=== PATIENT | female | born 1945 | race Caucasian/White ===

== ENCOUNTER 2018-07-31 01:10 | Outpatient (CLI) | payer OTHER, SELFPAY ==
--- NOTE | 2018-07-31 08:00 | PFT_ITS ---
DATE OF SERVICE: July 31, 2018 REQUESTING PROVIDER: Parisa Reynoso M.D. INTERPRETATION OF STUDY: Spirometry shows mild obstructive airways disease with significant bronchodilator response. LUNG VOLUMES: Show no evidence of restriction. DIFFUSION CAPACITY: Mildly reduced, even when corrected to alveolar volume. AIRWAYS RESISTANCE: Normal. IMPRESSION: Mild obstructive airways disease with significant bronchodilator response. This is associated with mild diffusion defect. Clinical correlation recommended. cc: Parisa Reynoso M.D.
[2018-07-31] MEDS: Inhaler, Assist Device 1 EACH MC (10:51)
[2018-07-31] MEDS: Albuterol HFA 18 GM 200 PUFF INH IH (10:51)
== END 2018-07-31 01:30 ==
PROVIDERS: PCP Physician Assistant Medical; Visit Provider Family Medicine
DX: J44.9 Chronic obstructive pulmonary disease, unspecified (principal)
CPT/HCPCS: 94060; 94150; 94726; 94729

== ENCOUNTER 2018-11-21 11:05 | Outpatient (CLI) | payer OTHER, SELFPAY ==
--- NOTE | 2018-11-21 11:10 | DI.RAD_ITS ---
SYMPTOM/DIAGNOSIS: HEEL PAIN, BILAT, M79.673, ? BONE SPURS LEFT HEEL; Two views. There is a small enthesophyte at the posterior calcaneus. The bone is intact. No suspicious lytic or sclerotic lesion, fracture, dislocation or periosteal reaction is seen. IMPRESSION: Negative left calcaneus. RIGHT HEEL: Two views. There is a small enthesophyte at the insertion site of the Achilles tendon. The bone is intact. No lytic or sclerotic lesion or periostitis is seen. IMPRESSION: No acute abnormality.
== END 2018-11-21 11:25 ==
PROVIDERS: PCP Physician Assistant Medical; Visit Provider Nurse Practitioner Family
DX: M79.671 Pain in right foot (principal); M79.672 Pain in left foot
CPT/HCPCS: 73650

== ENCOUNTER 2018-11-29 18:01 | Outpatient (REF) | payer OTHER, SELFPAY ==
[2018-11-29 20:48] LABS: HDL Cholesterol 63 mg/dL (40-60); LDL CHOLESTEROL 108 mg/dL (<100)
== END 2018-11-29 18:21 ==
LOC: NCHCN 18:01
PROVIDERS: PCP Physician Assistant Medical; Visit Provider Nurse Practitioner Family
DX: M79.673 Pain in unspecified foot (principal); I10 Essential (primary) hypertension; E78.5 Hyperlipidemia, unspecified
CPT/HCPCS: 83721; 83718

== ENCOUNTER 2018-12-26 10:40 | Outpatient (REF) | payer OTHER, SELFPAY ==
[2018-12-26 22:02] LABS: Abs Immature Grans 0.03 k/cumm (0.0-0.09); Absolute Basophil Count 0.13 k/cumm (0.0-0.2); Absolute Eosinophil Count 0.65 k/cumm (0.0-0.7); Absolute Lymphocyte Count 1.87 k/cumm (1.2-3.4); Absolute Neutrophil Count 5.41 k/cumm (1.2-6.7); Basophils % 1.5; Eosinophils % 7.3; HCT 42.1 % (36.0-46.0); HGB 14.8 g/dL (12.0-15.5); Immature Grans % 0.3; Mean Corp. HGB Concentration 35.2 g/dL (32.0-36.0); Mean Corpuscular Volume 93.8 fL (80-95); Mean Platelet Volume 10.7 fL (8.0-11.0); Neutrophils % 60.9; Platelet Count 279 x1000/uL (130-400); RBC 4.49 m/cumm (4.00-5.20); RBC Distribution Width 12.5 % (11.7-14.6); White Blood Cell Count 8.89 k/cumm (4.4-10.8)
[2018-12-26 22:05] LABS: Glucose 108 mg/dL (70-100)
== END 2018-12-26 11:00 ==
LOC: NCHCN 10:40
PROVIDERS: PCP Physician Assistant Medical; Visit Provider Nurse Practitioner Family
DX: D64.9 Anemia, unspecified (principal); R73.9 Hyperglycemia, unspecified
CPT/HCPCS: 82947; 85025

== ENCOUNTER 2019-01-14 18:37 | Emergency (ER) | payer OTHER, SELFPAY ==
[2019-01-14] VITALS (16 sets, daily range): BP systolic 137–186; BP diastolic 57–92; PULSE 60–71; RESP 14–31; TEMP 36.7; O2SAT 91–99
--- NOTE | 2019-01-14 18:57 | ED.GENADUL_ITS ---
Discharge Plan Disposition Patient Disposition: HOME Condition: Improving Discharge Details Chief Complaint: SOB Clinical Impression: Acute sinusitis, Acute bronchitis Primary Care Provider: Poonam Clemens ED Provider: Georgiana Guerra Home Meds and New Rx's Prescriptions: New doxycycline hyclate 100 mg tablet 100 mg PO BID 7 Days Qty: 14 RF: 0 prednisone 20 mg tablet See Rx Instructions .ROUTE .COMPLEX Qty: 12 RF: 0 Continued acetaminophen [Tylenol Extra Strength] 500 MG tablet 500 mg PO PRN PRN (Reason: Pain) RF: 0 metoprolol succinate 50 MG tablet extended release 24 hr 75 mg PO DAILY Qty: 45 RF: 0 nitroglycerin 0.4 MG tablet, sublingual 0.4 mg Sublingual Q5 MIN PRN X3 PRNQty: 10 RF: 0 aspirin [Aspir-Low] 81 MG tablet,delayed release (DR/EC) 81 mg PO DAILY RF: 0 lisinopril 10 MG tablet 10 mg PO DAILY RF: 0 albuterol sulfate 1.25 mg/3 mL Solution For Nebulization 1.25 mg INHALATION Q4H PRNRF: 0 albuterol sulfate [ProAir HFA] 90 mcg/actuation Hfa Aerosol Inhaler 2 puff INHALATION QID PRNRF: 0 Discharge Instructions Instructions: Sinusitis (ED), Acute Bronchitis (ED) Additional Instructions: Use your Flonase at home as directed. Use [id number] sinus rinse kit or saline nose spray to help with sinus congestion. Take the antibiotics and steroids until finished. Use your inhalers that you have at home as directed. Call your primary care doctor tomorrow to schedule a follow-up appointment for r eevaluation. Return immediately to the emergency department with any worsening or new concerning symptoms. Discharge Data Discharge Physician: Georgiana Guerra Medical Decision Making 73-year-old female with history of COPD, atrial fibrillation, pancreatitis who presents to the ED with complaint of postnasal drip, sinus pressure, nasal congestion, rhinorrhea and cough with white and yellow sputum for the past few days, worse today and associated with an episode of shortness of breath this afternoon. Blood pressure hypertensive, remainder vitals within normal limits. Normal respiratory rate, oxygen saturation and afebrile. Patient appears nontoxic and speaking full sentences. She has thick yellow postnasal drainage noted but no exudates, erythema, edema, peritonsillar abscess, or accessory muscle use. Scattered wheezing. No rhonchi, crackles or rales. No lower extremity edema. Due to patient's age and past medical history, a cardiac workup ordered on arrival. Upon examination, appears consistent with a sinus infection causing postnasal drip which may have led to a possible lower respiratory tract infection/bronchitis. Patient appears comfortable with good breath sounds with some minimal scattered wheezing so this does not appear consistent with a significant acute COPD exacerbation. Due to her history of this, and still with current smoking, will give an albuterol neb treatment and Solu-Medrol. EKG noted a rate of 60, sinus, no acute ST findings. 2014 -- labs and imaging reviewed and unremarkable. Normal white blood cell count. Normal electrolytes. Troponin negative. Chest x-ray negative. 2029 -- patient feels much better and is requesting to go home. Sounds improved and no wheezing noted. Oxygen saturation 96% on room air. Will treat for sinusitis/bronchitis. One docs of doxycycline ordered for now as well as 1 dose for home. She has albuterol and Spiriva inhalers at home. We will send home with a prescription for doxycycline and prednisone. She is instructed to also use sinus rinse or saline nose spray [id number] in addition to Flonase that she has at home. She is instructed to call her primary care doctor tomorrow to schedule a follow-up appointment for reevaluation and to return here if worse. Medical Records Medical records reviewed: Yes I reviewed the patient's medical records. Imaging Data Radiologic Study: Radiologist's impression: XR Chest, 2 Views EXAM DATE/TIME: 01/14/2019 7:33 PM FINDINGS: Lungs: Unremarkable. No consolidation. Pleural space: Unremarkable. No pleural effusion. No pneumothorax. Heart/Mediastinum: Unremarkable. No cardiomegaly. Vasculature: Aortic atherosclerosis. Bones/joints: Chronic osseous changes. IMPRESSION: No acute cardiopulmonary findings. Lab Data Lab results reviewed: Yes I reviewed the patient's lab results. Laboratory Tests Range/Units 01/14/19 01/14/19 19:15 19:15 WBC (4.4-10.8) k/cumm 10.63 RBC (4.00-5.20) m/cumm 4.19 Hgb (12.0-15.5) g/dL 13.7 Hct (36.0-46.0) % 39.0 MCV (80-95) fL 93.1 MCH (27.0-33.0) pg 32.7 MCHC (32.0-36.0) g/dL 35.1 RDW (11.7-14.6) % 12.4 Plt Count (130-400) x1000/uL 299 MPV (8.0-11.0) fL 9.4 Immature Gran % 0.2 Neutrophils % 55.2 Lymphocytes % 25.4 Monocytes % 10.3 Eosinophils % 7.5 Basophils % 1.4 Absolute Neutrophils (1.2-6.7) k/cumm 5.87 Absolute Lymphocytes (1.2-3.4) k/cumm 2.70 Absolute Monocytes (0.11-0.7) k/cumm 1.09 H Absolute Eosinophils (0.0-0.7) k/cumm 0.80 H Absolute Basophils (0.0-0.2) k/cumm 0.15 Sodium (136-145) mmol/L 140 Potassium (3.5-5.1) mmol/L 3.9 Chloride (98-107) mmol/L 105 Carbon Dioxide (21.0-32.0) mmol/L 24.9 Anion Gap (3-11) mmol/L 10.1 BUN (7-18) mg/dL 17 Creatinine (0.55-1.02) mg/dL 0.74 Estimated GFR/1.73 m2 (mL/min/1.73m2) >= 60.00 Glucose (70-100) mg/dL 115 H Calcium (8.5-10.1) mg/dL 8.6 Magnesium (1.8-2.4) mg/dL 2.0 Total Bilirubin (0.2-1.0) mg/dL 0.3 AST (15-37) U/L 12 L ALT (12-78) U/L 16 Alkaline Phosphatase (46-116) U/L 81 Troponin I (0.00-0.06) ng/mL < 0.02 Total Protein (6.4-8.2) g/dL 6.7 Albumin (3.4-5.0) g/dL 3.5 ECG Data Attestation: I personally reviewed and interpreted this ECG (s) as follows: Interpretation: Rate of 60, sinus, no acute ST elevation or depression. QTc 392. QRS 82. HPI General Mode of arrival: ambulatory . Date/Time Provider Initiated Documentation: 01/14/19 18:49 . Limitations to Documentation: no limitations . Information obtained by: patient . HPI Narrative: Patient is a 73-year-old female with a history of COPD, atrial fibrillation, pancreatitis who presents to the ED with complaint of postnasal drip, cough with white and yellow sputum for the past few days, worsening today and associated with some shortness of breath this afternoon. She denies any known fever, chest pain, vomiting, diarrhea. She states she has been eating and drinking normally. She denies any recent antibiotics or steroids. Related Data Home Medications Medication Instructions Recorded Confirmed acetaminophen [Tylenol Extra 500 mg PO PRN PRN 11/25/13 01/14/19 Strength] metoprolol succinate 75 mg PO DAILY #45 tabcr 07/30/17 01/14/19 nitroglycerin 0.4 mg SUBLINGUAL Q5 MIN PRN X3 07/30/17 01/14/19 PRN #10 tab.subl aspirin [Aspir-Low] 81 mg PO DAILY 01/25/18 01/14/19 lisinopril 10 mg PO DAILY 01/25/18 01/25/18 albuterol sulfate 1.25 mg INHALATION Q4H PRN 01/14/19 01/14/19 albuterol sulfate [ProAir HFA] 2 puff INHALATION QID PRN 01/14/19 01/14/19 doxycycline hyclate 100 mg PO BID 7 Days #14 tab 01/14/19 prednisone See Rx Instructions .ROUTE 01/14/19 .COMPLEX #12 tab Previous Rx's Medication Instructions Recorded metoprolol succinate 75 mg PO DAILY #45 tabcr 07/30/17 nitroglycerin 0.4 mg SUBLINGUAL Q5 MIN PRN X3 07/30/17 PRN #10 tab.subl doxycycline hyclate 100 mg PO BID 7 Days #14 tab 01/14/19 prednisone See Rx Instructions .ROUTE 01/14/19 .COMPLEX #12 tab Allergies Allergy/AdvReac Type Severity Reaction Status Date / Time morphine AdvReac Mild vomiting Verified 01/14/19 18:46 General Stated Complaint: SOB SEAMUS: 3 Review of Systems Review of Systems All systems reviewed & are unremarkable except as noted in HPI and below Constitutional Reports as per HPI, Denies chills and Denies fever(s) Eyes Denies blurry vision ENT Denies dizziness, Reports nasal congestion, Reports nasal discharge, Reports post nasal drip, Reports sinus pain, Reports sinus pressure, Denies sore throat and Denies throat swelling Cardiovascular Denies chest pain and Denies dyspnea Respiratory Denies cough and Denies dyspnea Gastrointestinal Denies abdominal pain, Denies diarrhea and Denies vomiting Genitourinary Denies hematuria and Denies dysuria Musculoskeletal Denies back pain and Denies numbness Integumentary/Breasts Denies lesions and Denies rash Neurologic Denies dizziness, Denies focal weakness and Denies numbness Allergic/Immunologic Denies throat swelling [facility] Medical History Atrial fibrillation (Chronic) COPD (chronic obstructive pulmonary disease) (Chronic) Pancreatitis (Chronic) Surgical History History of bilateral tubal ligation (Acute) H/O bladder repair surgery (Chronic) H/O section (Chronic) History of hysterectomy (Chronic) History of tonsillectomy (Chronic) Trigger Finger release (11/12/13) Social History Smoking/Tobacco Use Status: Former Tobacco Use Quit Date: 01/12/19 Alcohol Intake: never Drug use: Never Substance use type: does not use Do you feel safe at home: Yes Do you feel safe in your relationship?: Yes Exam Const General: cooperative and healthy appearing Orientation: alert and awake [facility] Head: normal to inspection Ears: hearing grossly normal bilaterally, external ears normal and TM's normal bilaterally General nose exam: external nose normal Face and sinus: normal facial exam Mouth: oral mucosae normal Teeth and gingiva: dentition normal Throat: uvula midline, no peritonsillar masses, postnasal drainage (Yellowish thick discharge left posterior pharynx) and other (No erythema, edema, exudates.) Eyes General: appearance normal, both eyes and all related structures Eyelids: eyelids normal EOM: EOM intact bilaterally Neck Neck: normal visual inspection Lymphatic: no lymphadenopathy noted Chest Chest: normal inspection of the chest Resp Effort & Inspection: normal respiratory effort and able to speak in complete sentences Auscultation: wheezes scattered wheezes (Minimal) Cardio Rate: regular rate Rhythm: regular rhythm GI Inspection: normal to inspection Palpation: soft, not firm, no guarding, no hepatosplenomegaly, no masses and nontender Auscultation: normal bowel sounds Skin General skin exam: no rashes or lesions noted Neuro General: alert and awake Cognition: normal cognition Speech: speech normal Gait: normal gait Motor: muscle tone normal throughout Sensory Exam: no sensory deficits noted Extrem General: normal to inspection, full ROM and no edema Psych Appearance: grossly normal Mental Status: mental status grossly normal Speech and Movement: speech and movement normal Affect: normal affect Thought Process: normal Course Vital Signs Temperature 98.1 F 01/14/19 18:44 Pulse 71 01/14/19 18:44 Respiratory Rate 22 01/14/19 18:44 Blood Pressure 186/82 H 01/14/19 18:44 Pulse Oximetry 97 01/14/19 18:44 Temperature 98.1 F 01/14/19 18:44 Temperature Source Skin 01/14/19 18:44 Pulse 71 01/14/19 18:44 Respiratory Rate 22 01/14/19 18:44 Respiratory Effort 01/14/19 18:49 Blood Pressure 186/82 H 01/14/19 18:44 Blood Pressure Position Sitting 01/14/19 18:44 Pulse Oximetry 97 01/14/19 18:44 Oxygen Delivery Method Room Air 01/14/19 18:44 Oxygen Flow Rate 0 01/14/19 18:44 Pain Level 0 01/14/19 18:44
[2019-01-14] MEDS: methylPREDNISolone SUCC 125 MG VIAL IVP (19:23)
[2019-01-14] MEDS: Albuterol/Ipratropium 3 ML UPD VIAL UPD (19:24)
[2019-01-14] MEDS: Normal Saline Flush 10 ML SYR IVP (19:24)
--- NOTE | 2019-01-14 19:30 | DI.RAD_ITS ---
SYMPTOM/DIAGNOSIS: COUGH,SOB PA AND LATERAL CHEST: Comparison is made with 01/24/18. Heart size and pulmonary vasculature are stable and within normal limits. The lungs show no evidence of congestive heart failure or pneumonia. No effusions or pneumothoraces are identified. Age appropriate degenerative changes are seen in the spine. There is a pectus excavatum deformity noted. IMPRESSION: No acute pulmonary process.
[2019-01-14 19:32] LABS: Abs Immature Grans 0.02 k/cumm (0.0-0.09); Absolute Basophil Count 0.15 k/cumm (0.0-0.2); Absolute Monocyte Count 1.09 k/cumm (0.11-0.7); Absolute Neutrophil Count 5.87 k/cumm (1.2-6.7); Basophils % 1.4; Eosinophils % 7.5; HGB 13.7 g/dL (12.0-15.5); Immature Grans % 0.2; Lymphocytes % 25.4; Mean Corp. HGB Concentration 35.1 g/dL (32.0-36.0); Mean Corpuscular Hemoglobin 32.7 pg (27.0-33.0); Mean Corpuscular Volume 93.1 fL (80-95); Mean Platelet Volume 9.4 fL (8.0-11.0); Monocytes % 10.3; Neutrophils % 55.2; Platelet Count 299 x1000/uL (130-400); RBC 4.19 m/cumm (4.00-5.20); RBC Distribution Width 12.4 % (11.7-14.6); White Blood Cell Count 10.63 k/cumm (4.4-10.8)
[2019-01-14 19:44] LABS: ALT 16 U/L (12-78); AST 12 U/L (15-37); Albumin 3.5 g/dL (3.4-5.0); Alkaline Phosphatase 81 U/L (46-116); Anion Gap 10.1 mmol/L (3-11); BUN 17 mg/dL (7-18); Bilirubin, Total 0.3 mg/dL (0.2-1.0); CO2 24.9 mmol/L (21.0-32.0); CREATININE 0.74 mg/dL (0.55-1.02); Calcium 8.6 mg/dL (8.5-10.1); Chloride 105 mmol/L (98-107); Glucose 115 mg/dL (70-100); Potassium 3.9 mmol/L (3.5-5.1); Sodium 140 mmol/L (136-145); Total Protein 6.7 g/dL (6.4-8.2); Troponin I < 0.02 ng/mL (0.00-0.06)
--- NOTE | 2019-01-14 20:12 | DI.VRAD_ITS ---
EXAM: XR Chest, 2 Views EXAM DATE/TIME: 01/14/2019 7:33 PM CLINICAL HISTORY: 73 years old, female; Signs and symptoms; Shortness of breath; Patient HX: SOB increasing today TECHNIQUE: Imaging protocol: XR of the chest, 2 views. COMPARISON: CR CHEST 2 VIEWS PA,LAT 01/24/2018 12:59 PM FINDINGS: Lungs: Unremarkable. No consolidation. Pleural space: Unremarkable. No pleural effusion. No pneumothorax. Heart/Mediastinum: Unremarkable. No cardiomegaly. Vasculature: Aortic atherosclerosis. Bones/joints: Chronic osseous changes. IMPRESSION: No acute cardiopulmonary findings. Dictated and Authenticated by: Eldon Ma MD. Ordering:MARKUS Stoner MD
[2019-01-14] MEDS: Doxycycline Hyclate 100 MG CAP PO ×2 (20:41)
== END 2019-01-14 20:50 | disposition home or self-care (01) ==
PROVIDERS: Emergency Provider Physician Assistant; PCP Physician Assistant Medical
DX: J01.90 Acute sinusitis, unspecified (principal); J20.9 Acute bronchitis, unspecified; I10 Essential (primary) hypertension; J44.0 Chronic obstructive pulmonary disease with (acute) lower respiratory infection
CPT/HCPCS: 36415; 80053; 93005; 94640; 96374; 99285; 71046; 83735; 84484; 85025; 93010; J2930; J7620

== ENCOUNTER 2019-01-16 13:04 | Emergency (ER) | payer OTHER, SELFPAY ==
[2019-01-16] MEDS: Normal Saline 1,000 ML 1000 ML IV (13:10)
--- NOTE | 2019-01-16 13:12 | W.ED.GENAD ---
Discharge Plan Disposition Patient Disposition: HOME Condition: Stable Discharge Details Chief Complaint: GenMedical Clinical Impression: Lightheaded Primary Care Provider: Poonam Clemens ED Provider: Josh Bernal Home Meds and New Rx's Prescriptions: No Action acetaminophen [Tylenol Extra Strength] 500 MG tablet 500 mg PO PRN PRN (Reason: Pain) RF: 0 metoprolol succinate 50 MG tablet extended release 24 hr 75 mg PO DAILY Qty: 45 RF: 0 nitroglycerin 0.4 MG tablet, sublingual 0.4 mg Sublingual Q5 MIN PRN X3 PRNQty: 10 RF: 0 aspirin [Aspir-Low] 81 MG tablet,delayed release (DR/EC) 81 mg PO DAILY RF: 0 lisinopril 10 MG tablet 10 mg PO DAILY RF: 0 albuterol sulfate 1.25 mg/3 mL Solution For Nebulization 1.25 mg INHALATION Q4H PRNRF: 0 albuterol sulfate [ProAir HFA] 90 mcg/actuation Hfa Aerosol Inhaler 2 puff INHALATION QID PRNRF: 0 doxycycline hyclate 100 mg tablet 100 mg PO BID 7 Days Qty: 14 RF: 0 prednisone 20 mg tablet See Rx Instructions .ROUTE .COMPLEX Qty: 12 RF: 0 Discharge Instructions Instructions: Lightheadedness (ED) Additional Instructions: follow up with your primary care provider within 1-2 weeks and have your blood pressure rechecked return to the emergency department for chest pain/pressure, difficulty breathing, weakness on one side of the body, fevers, or if you feel you are significantly more ill Medical Decision Making 73 yo female with hx of copd, afib, who comes in with complaints of feeling dizzy and lightheaded a few hours ago with nausea. She still has some mild feeling of lightheadedness but no other significant symptoms at this time. Denies any abdominal pain, chest pain, sob, fevers. Was seen here 3 days ago and dx'd with uri symptoms and prescribed doxycycline and prednisone and she sttes those symptoms have significantly improved and no longer has complaints of that. She has no focal neuro deficits, NIH of 0 and no complaints of unilateral weakness or speech disturbances so doubt cva/tia. No chest pain or pressure to suggest acs. No hypoxia or tachycardia and no evidence of dvt so doubt PE. Will obtain labs to eval for anemia and electrolyte abnormalities and monitor pt remains stable, no new changes, she feels better with IVF. Is ambulating unassisted without symptoms. Do not feel any furhter acute workup indicated. Will have her f/u with pcp for her bp and return precautions given Differential Diagnosis med reaction, anemia, arrythmia, electrolyte abnormality Lab Data Lab results reviewed: Yes I reviewed the patient's lab results. HPI General Mode of arrival: EMS. Date/Time Provider Initiated Documentation: 01/16/19 13:11. Limitations to Documentation: no limitations. Information obtained by: patient. History of Present Illness 73 year old F presents to the emergency department with the chief complaint of dizziness, described as moderate, Patient reports no radiation. Patient started experiencing this hour(s) (5) and it has been constant. No relieving factors improve symptom(s), No exacerbating factors reported . Patient notes other (nausea). Patient did receive the following treatments prior to arrival, none Related Data Home Medications Medication Instructions Recorded Confirmed acetaminophen [Tylenol Extra 500 mg PO PRN PRN 11/25/13 01/14/19 Strength] metoprolol succinate 75 mg PO DAILY #45 tabcr 07/30/17 01/14/19 nitroglycerin 0.4 mg SUBLINGUAL Q5 MIN PRN X3 07/30/17 01/14/19 PRN #10 tab.subl aspirin [Aspir-Low] 81 mg PO DAILY 01/25/18 01/14/19 lisinopril 10 mg PO DAILY 01/25/18 01/25/18 albuterol sulfate 1.25 mg INHALATION Q4H PRN 01/14/19 01/14/19 albuterol sulfate [ProAir HFA] 2 puff INHALATION QID PRN 01/14/19 01/14/19 doxycycline hyclate 100 mg PO BID 7 Days #14 tab 01/14/19 prednisone See Rx Instructions .ROUTE 01/14/19 .COMPLEX #12 tab Previous Rx's Medication Instructions Recorded metoprolol succinate 75 mg PO DAILY #45 tabcr 07/30/17 nitroglycerin 0.4 mg SUBLINGUAL Q5 MIN PRN X3 07/30/17 PRN #10 tab.subl doxycycline hyclate 100 mg PO BID 7 Days #14 tab 01/14/19 prednisone See Rx Instructions .ROUTE 01/14/19 .COMPLEX #12 tab Allergies Allergy/AdvReac Type Severity Reaction Status Date / Time morphine AdvReac Mild vomiting Verified 01/14/19 18:46 General SEAMUS: 3 Review of Systems Review of Systems All systems reviewed & are unremarkable except as noted in HPI and below Constitutional Denies chills and Denies fever(s) ENT Denies change in voice Cardiovascular Denies chest pain and Denies dyspnea Respiratory Denies cough and Denies dyspnea Gastrointestinal Denies abdominal pain, Denies nausea and Denies vomiting Integumentary/Breasts Denies rash Allergic/Immunologic Denies urticaria PFSH Medical History Atrial fibrillation (Chronic) COPD (chronic obstructive pulmonary disease) (Chronic) Pancreatitis (Chronic) Surgical History History of bilateral tubal ligation (Acute) H/O bladder repair surgery (Chronic) H/O section (Chronic) History of hysterectomy (Chronic) History of tonsillectomy (Chronic) Trigger Finger release (11/12/13) Social History Smoking/Tobacco Use Status: Former Tobacco Use Quit Date: 01/12/19 Alcohol Intake: never Drug use: Never Substance use type: does not use Do you feel safe at home: Yes Do you feel safe in your relationship?: Yes Exam Const General: no acute distress Orientation: alert HENMT Head: normal to inspection Ears: external ears normal General nose exam: external nose normal Mouth: moist mucous membranes Eyes General: appearance normal, both eyes and all related structures Neck Neck: normal visual inspection Resp Effort & Inspection: normal respiratory effort and able to speak in complete sentences Cardio Rate: regular rate Skin General skin exam: no rashes or lesions noted Neuro General: alert and oriented x3 Extrem General: normal to inspection Psych Mental Status: mental status grossly normal
--- NOTE | 2019-01-16 13:16 | ED.GENADUL_ITS ---
Discharge Plan Disposition Patient Disposition: HOME Condition: Stable Discharge Details Chief Complaint: GenMedical Clinical Impression: Lightheaded Primary Care Provider: Poonam Clemens ED Provider: Josh Bernal Home Meds and New Rx's Prescriptions: No Action acetaminophen [Tylenol Extra Strength] 500 MG tablet 500 mg PO PRN PRN (Reason: Pain) RF: 0 metoprolol succinate 50 MG tablet extended release 24 hr 75 mg PO DAILY Qty: 45 RF: 0 nitroglycerin 0.4 MG tablet, sublingual 0.4 mg Sublingual Q5 MIN PRN X3 PRNQty: 10 RF: 0 aspirin [Aspir-Low] 81 MG tablet,delayed release (DR/EC) 81 mg PO DAILY RF: 0 lisinopril 10 MG tablet 10 mg PO DAILY RF: 0 albuterol sulfate 1.25 mg/3 mL Solution For Nebulization 1.25 mg INHALATION Q4H PRNRF: 0 albuterol sulfate [ProAir HFA] 90 mcg/actuation Hfa Aerosol Inhaler 2 puff INHALATION QID PRNRF: 0 doxycycline hyclate 100 mg tablet 100 mg PO BID 7 Days Qty: 14 RF: 0 prednisone 20 mg tablet See Rx Instructions .ROUTE .COMPLEX Qty: 12 RF: 0 Discharge Instructions Instructions: Lightheadedness (ED) Additional Instructions: follow up with your primary care provider within 1-2 weeks and have your blood pressure rechecked return to the emergency department for chest pain/pressure, difficulty breathing, weakness on one side of the body, fevers, or if you feel you are significantly more ill Medical Decision Making 73 yo female with hx of copd, afib, who comes in with complaints of feeling dizzy and lightheaded a few hours ago with nausea. She still has some mild feeling of lightheadedness but no other significant symptoms at this time. Denie s any abdominal pain, chest pain, sob, fevers. Was seen here 3 days ago and dx'd with uri symptoms and prescribed doxycycline and prednisone and she sttes those symptoms have significantly improved and no longer has complaints of that. She has no focal neuro deficits, NIH of 0 and no complaints of unilateral weakness or speech disturbances so doubt cva/tia. No chest pain or pressure to suggest acs. No hypoxia or tachycardia and no evidence of dvt so doubt PE. Will obtain labs to eval for anemia and electrolyte abnormalities and monitor pt remains stable, no new changes, she feels better with IVF. Is ambulating unassisted without symptoms. Do not feel any furhter acute workup indicated. Will have her f/u with pcp for her bp and return precautions given Differential Diagnosis med reaction, anemia, arrythmia, electrolyte abnormality Lab Data Lab results reviewed: Yes I reviewed the patient's lab results. HPI General Mode of arrival: EMS . Date/Time Provider Initiated Documentation: 01/16/19 13:11 . Limitations to Documentation: no limitations . Information obtained by: patient . History of Present Illness 73 year old F presents to the emergency department with the chief complaint of dizziness, described as moderate, Patient reports no radiation. Patient started exp eriencing this hour(s) (5) and it has been constant. No relieving factors improve symptom(s), No exacerbating factors reported . Patient notes other (nausea). Patient did receive the following treatments prior to arrival, none Related Data Home Medications Medication Instructions Recorded Confirmed acetaminophen [Tylenol Extra 500 mg PO PRN PRN 11/25/13 01/14/19 Strength] metoprolol succinate 75 mg PO DAILY #45 tabcr 07/30/17 01/14/19 nitroglycerin 0.4 mg SUBLINGUAL Q5 MIN PRN X3 07/30/17 01/14/19 PRN #10 tab.subl aspirin [Aspir-Low] 81 mg PO DAILY 01/25/18 01/14/19 lisinopril 10 mg PO DAILY 01/25/18 01/25/18 albuterol sulfate 1.25 mg INHALATION Q4H PRN 01/14/19 01/14/19 albuterol sulfate [ProAir HFA] 2 puff INHALATION QID PRN 01/14/19 01/14/19 doxycycline hyclate 100 mg PO BID 7 Days #14 tab 01/14/19 prednisone See Rx Instructions .ROUTE 01/14/19 .COMPLEX #12 tab Previous Rx's Medication Instructions Recorded metoprolol succinate 75 mg PO DAILY #45 tabcr 07/30/17 nitroglycerin 0.4 mg SUBLINGUAL Q5 MIN PRN X3 07/30/17 PRN #10 tab.subl doxycycline hyclate 100 mg PO BID 7 Days #14 tab 01/14/19 prednisone See Rx Instructions .ROUTE 01/14/19 .COMPLEX #12 tab Allergies Allergy/AdvReac Type Severity Reaction Status Date / Time morphine AdvReac Mild vomiting Verified 01/14/19 18:46 General SEAMUS: 3 Review of Systems Review of Systems All systems reviewed & are unremarkable except as noted in HPI and below Constitutional Denies chills and Denies fever(s) ENT Denies change in voice Cardiovascular Denies chest pain and Denies dyspnea Respiratory Denies cough and Denies dyspnea Gastrointestinal Denies abdominal pain, Denies nausea and Denies vomiting Integumentary/Breasts Denies rash Allergic/Immunologic Denies urticaria [facility] Medical History Atrial fibrillation (Chronic) COPD (chronic obstructive pulmonary disease) (Chronic) Pancreatitis (Chronic) Surgical History History of bilateral tubal ligation (Acute) H/O bladder repair surgery (Chronic) H/O section (Chronic) History of hysterectomy (Chronic) History of tonsillectomy (Chronic) Trigger Finger release (11/12/13) Social History Smoking/Tobacco Use Status: Former Tobacco Use Quit Date: 01/12/19 Alcohol Intake: never Drug use: Never Substance use type: does not use Do you feel safe at home: Yes Do you feel safe in your relationship?: Yes Exam Const General: no acute distress Orientation: alert HENMT Head: normal to inspection Ears: external ears normal General nose exam: external nose normal Mouth: moist mucous membranes Eyes General: appearance normal, both eyes and all related structures Neck Neck: normal visual inspection Resp Effort & Inspection: normal respiratory effort and able to speak in complete sentences Cardio Rate: regular rate Skin General skin exam: no rashes or lesions noted Neuro General: alert and oriented x3 Extrem General: normal to inspection Psych Mental Status: mental status grossly normal
[2019-01-16 13:17] VITALS: BP 172/64; PULSE 74; RESP 16; TEMP 36.6; O2SAT 98
[2019-01-16 13:24] LABS: Abs Immature Grans 0.02 k/cumm (0.0-0.09); Absolute Basophil Count 0.09 k/cumm (0.0-0.2); Absolute Eosinophil Count 0.21 k/cumm (0.0-0.7); Absolute Lymphocyte Count 2.12 k/cumm (1.2-3.4); Absolute Monocyte Count 1.05 k/cumm (0.11-0.7); Absolute Neutrophil Count 6.48 k/cumm (1.2-6.7); Basophils % 0.9; Eosinophils % 2.1; HCT 40.1 % (36.0-46.0); Immature Grans % 0.2; Lymphocytes % 21.3; Mean Corp. HGB Concentration 34.9 g/dL (32.0-36.0); Mean Corpuscular Hemoglobin 32.7 pg (27.0-33.0); Mean Corpuscular Volume 93.7 fL (80-95); Mean Platelet Volume 9.4 fL (8.0-11.0); Monocytes % 10.5; Platelet Count 298 x1000/uL (130-400); RBC 4.28 m/cumm (4.00-5.20); RBC Distribution Width 12.4 % (11.7-14.6); White Blood Cell Count 9.97 k/cumm (4.4-10.8)
[2019-01-16 13:37] LABS: ALT 19 U/L (12-78); AST 14 U/L (15-37); Albumin 3.6 g/dL (3.4-5.0); Alkaline Phosphatase 79 U/L (46-116); Anion Gap 13.1 mmol/L (3-11); BUN 23 mg/dL (7-18); Bilirubin, Total 0.3 mg/dL (0.2-1.0); CO2 22.9 mmol/L (21.0-32.0); CREATININE 0.92 mg/dL (0.55-1.02); Calcium 8.7 mg/dL (8.5-10.1); Chloride 106 mmol/L (98-107); Glucose 101 mg/dL (70-100); Magnesium 1.8 mg/dL (1.8-2.4); Potassium 3.3 mmol/L (3.5-5.1); Sodium 142 mmol/L (136-145); Total Protein 6.8 g/dL (6.4-8.2)
[2019-01-16 13:39] LABS: Troponin I < 0.02 ng/mL (0.00-0.06)
== END 2019-01-16 19:10 | disposition home or self-care (01) ==
PROVIDERS: Emergency Provider Emergency Medicine; PCP Nurse Practitioner Family
DX: R42 Dizziness and giddiness (principal); J44.9 Chronic obstructive pulmonary disease, unspecified
CPT/HCPCS: 36415; 80053; 96360; 99283; 83735; 84484; 85025

== ENCOUNTER 2019-01-16 18:23 | Emergency (ER) | payer OTHER, SELFPAY ==
[2019-01-16 18:25] VITALS: BP 193/78; PULSE 76; RESP 16; TEMP 36.7; O2SAT 100
--- NOTE | 2019-01-16 18:37 | ED.GENADUL_ITS ---
Discharge Plan Disposition Patient Disposition: HOME Condition: Stable Discharge Details Chief Complaint: GenMedical Clinical Impression: Hypertension Primary Care Provider: Poonam Clemens ED Provider: Josh Bernal Home Meds and New Rx's Prescriptions: No Action acetaminophen [Tylenol Extra Strength] 500 MG tablet 500 mg PO PRN PRN (Reason: Pain) RF: 0 metoprolol succinate 50 MG tablet extended release 24 hr 75 mg PO DAILY Qty: 45 RF: 0 nitroglycerin 0.4 MG tablet, sublingual 0.4 mg Sublingual Q5 MIN PRN X3 PRNQty: 10 RF: 0 aspirin [Aspir-Low] 81 MG tablet,delayed release (DR/EC) 81 mg PO DAILY RF: 0 lisinopril 10 MG tablet 10 mg PO DAILY RF: 0 albuterol sulfate 1.25 mg/3 mL Solution For Nebulization 1.25 mg INHALATION Q4H PRNRF: 0 albuterol sulfate [ProAir HFA] 90 mcg/actuation Hfa Aerosol Inhaler 2 puff INHALATION QID PRNRF: 0 doxycycline hyclate 100 mg tablet 100 mg PO BID 7 Days Qty: 14 RF: 0 prednisone 20 mg tablet See Rx Instructions .ROUTE .COMPLEX Qty: 12 RF: 0 Discharge Instructions Instructions: Hypertension (ED) Medical Decision Making 73 yo female comes in with complaints of high blood pressure and feeling shaky when standing. Denies any fevers, chills, speech disturbances, or chest pain/pressure. She was seen earlier for similar complaints with unremarkable lab work and since being home has been checking her BP and it has been over 190 and so came back for an eval. She is walking with steady gait, NIH of 0, no focal neuro deficits so doubt cva. I suspect this is either orthostasis vs anxiety related to her bp. She has no findings to suggest cva/tia, and given normal tele here with symptoms doubt arrythmia. Will d/c and have her f/u with pcp for further management of her BP, I did offer to have her increase her losartan but she declined this at this time Differential Diagnosis anxiety, anemia, htn HPI General Mode of arrival: EMS . Date/Time Provider Initiated Documentation: 01/16/19 18:25 . Limitations to Documentation: no limitations . Information obtained by: patient . History of Present Illness 73 year old F presents to the emergency department with the chief complaint of shaky, described as moderate, Patient started experiencing this day(s) (1) and it has been intermittent. No relieving factors improve symptom(s), No exacerbating factors reported . Patient did receive the following treatments prior to arrival, none Related Data Home Medications Medication Instructions Recorded Confirmed acetaminophen [Tylenol Extra 500 mg PO PRN PRN 11/25/13 01/14/19 Strength] metoprolol succinate 75 mg PO DAILY #45 tabcr 07/30/17 01/14/19 nitroglycerin 0.4 mg SUBLINGUAL Q5 MIN PRN X3 07/30/17 01/14/19 PRN #10 tab.subl aspirin [Aspir-Low] 81 mg PO DAILY 01/25/18 01/14/19 lisinopril 10 mg PO DAILY 01/25/18 01/25/18 albuterol sulfate 1.25 mg INHALATION Q4H PRN 01/14/19 01/14/19 albuterol sulfate [ProAir HFA] 2 puff INHALATION QID PRN 01/14/19 01/14/19 doxycycline hyclate 100 mg PO BID 7 Days #14 tab 01/14/19 prednisone See Rx Instructions .ROUTE 01/14/19 .COMPLEX #12 tab Previous Rx's Medication Instructions Recorded metoprolol succinate 75 mg PO DAILY #45 tabcr 07/30/17 nitroglycerin 0.4 mg SUBLINGUAL Q5 MIN PRN X3 07/30/17 PRN #10 tab.subl doxycycline hyclate 100 mg PO BID 7 Days #14 tab 01/14/19 prednisone See Rx Instructions .ROUTE 01/14/19 .COMPLEX #12 tab Allergies Allergy/AdvReac Type Severity Reaction Status Date / Time morphine AdvReac Mild vomiting Verified 01/14/19 18:46 General SEAMUS: 3 Review of Systems Review of Systems All systems reviewed & are unremarkable except as noted in HPI and below Constitutional Denies chills, Denies fever(s) and Denies weakness Cardiovascular Denies chest pain and Denies dyspnea Respiratory Denies cough and Denies dyspnea Gastrointestinal Denies abdominal pain, Denies nausea and Denies vomiting Neurologic Denies weakness PFSH Social History Smoking/Tobacco Use Status: Former Tobacco Use Quit Date: 01/12/19 Alcohol Intake: never Drug use: Never Substance use type: does not use Do you feel safe at home: Yes Do you feel safe in your relationship?: Yes Exam Const General: no acute distress Orientation: alert HENMT Head: normal to inspection Ears: external ears normal General nose exam: external nose normal Mouth: moist mucous membranes Eyes General: appearance normal, both eyes and all related structures Neck Neck: normal visual inspection Resp Effort & Inspection: normal respiratory effort and able to speak in complete sentences Cardio Rate: regular rate Skin General skin exam: no rashes or lesions noted Neuro General: alert and oriented x3 Cranial Nerves: CN's II-XI intact bilaterally Cognition: normal cognition Gait: normal gait Extrem General: normal to inspection Psych Mental Status: mental status grossly normal
--- NOTE | 2019-01-16 18:42 | NUR.NOTE ---
overall patient ambulated steadily 02 sat 98 RA hr 100 Note:
== END 2019-01-16 19:10 | disposition home or self-care (01) ==
LOC: ER 19:14
PROVIDERS: Emergency Provider Emergency Medicine; PCP Physician Assistant Medical
DX: I10 Essential (primary) hypertension (principal)
CPT/HCPCS: 99283

== ENCOUNTER 2019-01-23 16:10 | Outpatient (CLI) | payer OTHER, SELFPAY ==
[2019-01-23] MEDS: Omnipaque 350 MG/ML 100 ML BTL IJ (16:43)
--- NOTE | 2019-01-23 16:59 | DI.CT_ITS ---
SYMPTOM/DIAGNOSIS: DYSPNA, R06.00, ? PE PE CHEST CT: CT angiography was performed with multi slice acquisition and multi planar and 3D reconstruction. The study was carried out according to the usual protocol with an intravenous administration of 65 cc's of Omnipaque 350. There is no evidence of pulmonary embolic disease. The heart is of normal size. There is no evidence of an aortic aneurysm or dissection. Note is made of moderate bilateral centrilobular emphysematous changes in the lungs. There is no evidence of lymphadenopathy. Note is made of a pectus excavatum. No acute bony abnormality is seen. The soft tissues are unremarkable. SUMMARY: No evidence of acute cardiopulmonary disease. There are moderate emphysematous changes in the lungs and note is made of a mild pectus excavatum deformity.
--- NOTE | 2019-01-23 17:11 | DI.VRAD_ITS ---
EXAM: CT Angiography Chest With Contrast EXAM DATE/TIME: 01/23/2019 4:22 PM CLINICAL HISTORY: 73 years old, female; Signs and symptoms; Dyspnea TECHNIQUE: Imaging protocol: Axial computed tomographic angiography images of the chest with intravenous contrast using CT angiography protocol. Coronal and sagittal reformatted images were created and reviewed. 3D renderinD reconstructed images were created and reviewed. Contrast material: omnipaque Contrast volume: 65 ml Contrast route: rt ac COMPARISON: CT CHEST ABD PELVIS WITH CONTRAST 08/10/2017 12:49 PM FINDINGS: Pulmonary arteries: Normal. No pulmonary emboli. Aorta: Normal. No aortic aneurysm. No aortic dissection. Lungs: Moderate bilateral centrilobular emphysematous changes are present. Pleural space: Normal. No pneumothorax. No pleural effusion. Heart: Normal. No cardiomegaly. No pericardial effusion. Lymph nodes: Unremarkable. No enlarged lymph nodes. Bones/joints: Mild pectus excavatum. No acute fracture. Soft tissues: Unremarkable. IMPRESSION: No acute abnormality. Moderate emphysema and mild pectus excavatum deformity of the chest wall. Dictated and Authenticated by: Seema Scruggs MD. Ordering:GABRIELA Marcelino MD
== END 2019-01-23 16:30 ==
PROVIDERS: PCP Nurse Practitioner Family; Visit Provider Nurse Practitioner Family
DX: R06.00 Dyspnea, unspecified (principal); J43.9 Emphysema, unspecified
CPT/HCPCS: 71275; J3490

== ENCOUNTER 2019-01-25 14:31 | Outpatient (REF) | payer OTHER, SELFPAY ==
[2019-01-25 21:30] LABS: Anion Gap 12.2 mmol/L (3-11); BUN 16 mg/dL (7-18); CO2 23.8 mmol/L (21.0-32.0); CREATININE 0.92 mg/dL (0.55-1.02); Chloride 104 mmol/L (98-107); Glucose 100 mg/dL (70-100); Sodium 140 mmol/L (136-145)
== END 2019-01-25 14:51 ==
LOC: NCHCN 14:31
PROVIDERS: PCP Nurse Practitioner Family; Visit Provider Nurse Practitioner Family
DX: R06.00 Dyspnea, unspecified (principal); I10 Essential (primary) hypertension
CPT/HCPCS: 80048; 84443

== ENCOUNTER 2019-01-29 11:18 | Emergency (ER) | payer OTHER, SELFPAY ==
[2019-01-29] VITALS (21 sets, daily range): BP systolic 102–207; BP diastolic 65–155; PULSE 70–108; RESP 1–29; TEMP 37.1; O2SAT 99–100
--- NOTE | 2019-01-29 11:20 | W.ED.GENAD ---
Discharge Plan Disposition Patient Disposition: HOME Condition: Improving Discharge Details Chief Complaint: RespSymp Clinical Impression: Chronic obstructive pulmonary disease with (acute) exacerbation Primary Care Provider: Chari Abdullahi ED Provider: Bubba Garibay Home Meds and New Rx's Prescriptions: Continued acetaminophen [Tylenol Extra Strength] 500 MG tablet 500 mg PO PRN PRN (Reason: Pain) RF: 0 metoprolol succinate 50 MG tablet extended release 24 hr 75 mg PO DAILY Qty: 45 RF: 0 nitroglycerin 0.4 MG tablet, sublingual 0.4 mg Sublingual Q5 MIN PRN X3 PRNQty: 10 RF: 0 aspirin [Aspir-Low] 81 MG tablet,delayed release (DR/EC) 81 mg PO DAILY RF: 0 lisinopril 10 MG tablet 10 mg PO DAILY RF: 0 albuterol sulfate 1.25 mg/3 mL Solution For Nebulization 1.25 mg INHALATION Q4H PRNRF: 0 albuterol sulfate [ProAir HFA] 90 mcg/actuation Hfa Aerosol Inhaler 2 puff INHALATION QID PRNRF: 0 prednisone 20 mg tablet See Rx Instructions .ROUTE .COMPLEX Qty: 12 RF: 0 Discharge Instructions Instructions: COPD (Chronic Obstructive Pulmonary Disease) (ED) Additional Instructions: Please followup-up with Chari Abdullahi: we will ask our care management team to arrange an appointment. Add Sybicort twice daily as instructed. Consider stopping Serevent and discuss this with Chari Abdullahi. We will ask respiratory therapy to work with you for an outpatient, ongoing plan of care for your lungs May liberalize potassium containing foods such as strawberries, bananas, tree nuts such as cashews or almonds. You would benefit from having the potassium rechecked at your follow-up in clinic Return if you develop recurrent difficulty breathing, fever, cough. Continue all recently prescribed medications. Medical Decision Making 73-year-old female with a history of COPD. [place] tightness of breath this morning administered a home inhaler. She felt improved but then recurred and she called EMS. They found her to be hyperventilatory with carpopedal spasm. She is quite anxious. She did improve with nebulizer en route as well as coaching of breathing. She is afebrile, well-appearing, normal pulse and oxygenation; she does complain recently of increased sputum. She states she recent had a chest x-ray and declines this at today's visit. IV had been placed by EMS. Patient does have a component of anxiety and given Ativan with her consent. Screening laboratories obtained patient given fluid bolus as well as seen by respiratory consultation with saline nebulizer, Atrovent, Acappella device. Would consider stopping Serevent. I do wonder if she would benefit from a selective beta agonist such a levalbuterol/Xopenex. We will ask RT to arrange an outpatient plan of care for her COPD. Blood pressure normalized to 124/70. Labs notable for slight low potassium of 3.3, supplemented in the emergency department. As she is on KAPIL inhibitor, will merit rechecking I do feel patient will benefit from long-term inhaled steroid and she is given teaching and provided a Symbicort 2 puffs twice daily. We will ask care management to arrange outpatient follow-up for her in clinic. Lab Data Lab results reviewed: Yes I reviewed the patient's lab results. Laboratory Results - last 24 hr 01/29/19 01/29/19 11:45 11:45 WBC 10.54 RBC 4.29 Hgb 14.0 Hct 39.2 MCV 91.4 MCH 32.6 MCHC 35.7 RDW 12.4 Plt Count 264 MPV 9.6 Immature Gran % 0.2 Neutrophils % 71.1 Lymphocytes % 18.1 Monocytes % 8.9 Eosinophils % 1.0 Basophils % 0.7 Absolute Neutrophils 7.49 H Absolute Lymphocytes 1.91 Absolute Monocytes 0.94 H Absolute Eosinophils 0.11 Absolute Basophils 0.07 Sodium 142 Potassium 3.3 L Chloride 106 Carbon Dioxide 19.8 L Anion Gap 16.2 H BUN 13 Creatinine 0.92 Estimated GFR/1.73 m2 >= 60.00 Glucose 103 H Calcium 9.2 ECG Data Attestation: I personally reviewed and interpreted this ECG (s) as follows: Interpretation: Normal sinus rhythm, rate 83, QRS is narrow, no ST segment elevation HPI General Mode of arrival: EMS. Date/Time Provider Initiated Documentation: 01/29/19 11:22. Limitations to Documentation: no limitations. Information obtained by: patient and EMS. History of Present Illness 73 year old F presents to the emergency department with the chief complaint of SOB at home, improved with neb and coaching by wind project manager, described as moderate, Quality is described as dull, and is localized to the chest. Patient reports no radiation. Patient started experiencing this hour(s) and it has been intermittent. No relieving factors improve symptom(s), No exacerbating factors reported . Patient notes no other symptoms.. Patient did receive the following treatments prior to arrival, other (neb) Related Data Home Medications Medication Instructions Recorded Confirmed acetaminophen [Tylenol Extra 500 mg PO PRN PRN 11/25/13 01/14/19 Strength] metoprolol succinate 75 mg PO DAILY #45 tabcr 07/30/17 01/14/19 nitroglycerin 0.4 mg SUBLINGUAL Q5 MIN PRN X3 07/30/17 01/14/19 PRN #10 tab.subl aspirin [Aspir-Low] 81 mg PO DAILY 01/25/18 01/14/19 lisinopril 10 mg PO DAILY 01/25/18 01/25/18 albuterol sulfate 1.25 mg INHALATION Q4H PRN 01/14/19 01/14/19 albuterol sulfate [ProAir HFA] 2 puff INHALATION QID PRN 01/14/19 01/14/19 prednisone See Rx Instructions .ROUTE 01/14/19 .COMPLEX #12 tab Previous Rx's Medication Instructions Recorded metoprolol succinate 75 mg PO DAILY #45 tabcr 07/30/17 nitroglycerin 0.4 mg SUBLINGUAL Q5 MIN PRN X3 07/30/17 PRN #10 tab.subl prednisone See Rx Instructions .ROUTE 01/14/19 .COMPLEX #12 tab Allergies Allergy/AdvReac Type Severity Reaction Status Date / Time morphine AdvReac Mild vomiting Verified 01/14/19 18:46 General SEAMUS: 3 Review of Systems Review of Systems hrs of discomfort, neb at home with improvement. Hyperventalitory on [facility] arrival. No recent illness. + anxiety. [facility] Social History Smoking/Tobacco Use Status: Former Tobacco Use Quit Date: 01/12/19 Alcohol Intake: never Drug use: Never Substance use type: does not use Do you feel safe at home: Yes Do you feel safe in your relationship?: Yes Exam Narrative Exam Narrative: GEN: awake, alert, oriented 3. Pleasant, well groomed, interactive. HEAD: Normocephalic, atraumatic ENT: Mucous membranes moist, oropharynx unremarkable, External ear exam unremarkable EYES: PERRL, EOMI NECK: Full ROM, no HUMA, no menigismus CHEST/RESP: Nontender, clear to auscultation bilateral, slightly diminished but no wheeze at my CARDIOVASCULAR: RRR, no murmur, rub reynaldo. 2+ Rad pulse bilateral ABDOMEN: Soft, nontender, no mass. +Bowel sounds EXT: Full ROM, no edema, no rash Neuro: Grossly normal neurologic exam, conversant, interactive. Psych: Speech fluent, thoughts congruent, affect anxious
[2019-01-29] MEDS: Ipratropium 0.5 MG/2.5 ML UPD VIAL UPD (11:50)
[2019-01-29 11:59] LABS: Abs Immature Grans 0.02 k/cumm (0.0-0.09); Absolute Basophil Count 0.07 k/cumm (0.0-0.2); Absolute Eosinophil Count 0.11 k/cumm (0.0-0.7); Absolute Lymphocyte Count 1.91 k/cumm (1.2-3.4); Absolute Monocyte Count 0.94 k/cumm (0.11-0.7); Absolute Neutrophil Count 7.49 k/cumm (1.2-6.7); Basophils % 0.7; HCT 39.2 % (36.0-46.0); Immature Grans % 0.2; Lymphocytes % 18.1; Mean Corp. HGB Concentration 35.7 g/dL (32.0-36.0); Mean Corpuscular Hemoglobin 32.6 pg (27.0-33.0); Mean Corpuscular Volume 91.4 fL (80-95); Mean Platelet Volume 9.6 fL (8.0-11.0); Monocytes % 8.9; Neutrophils % 71.1; Platelet Count 264 x1000/uL (130-400); RBC 4.29 m/cumm (4.00-5.20); RBC Distribution Width 12.4 % (11.7-14.6); White Blood Cell Count 10.54 k/cumm (4.4-10.8)
[2019-01-29] MEDS: LORazepam 2 MG/ML VIAL 0.5 MG IVP (12:00)
[2019-01-29 12:06] LABS: Anion Gap 16.2 mmol/L (3-11); BUN 13 mg/dL (7-18); CO2 19.8 mmol/L (21.0-32.0); CREATININE 0.92 mg/dL (0.55-1.02); Calcium 9.2 mg/dL (8.5-10.1); Chloride 106 mmol/L (98-107); Glucose 103 mg/dL (70-100); Potassium 3.3 mmol/L (3.5-5.1); Sodium 142 mmol/L (136-145)
[2019-01-29] MEDS: Budesonide/Formoterol 80/4.5 6.9 GM 60 PUFF INH IH (12:28)
[2019-01-29] MEDS: Potassium Chloride Liquid 20 MEQ PKT PO (13:02)
--- NOTE | 2019-01-29 13:15 | RESPIRATORY ---
01/29/19-Pt brought here to ED by [facility]a with SOB. Gave Atrovent neb via acapella as Pt has complaint of feeling secretions are stuck in her chest. Did alot of bedside Resp EDU with Pt. Started her on Symbicort BID, 2 puffs with spacer. Pt was able to reproduce teaching to me. Made a visual Resp med schedule for her as well and will forward on to her PCP,Chari Abdullahi @ [facility] and have sent to [facility]. Let a message for Chari Abdullahi requesting a RX for Levalbuterol given the Pt's high anxiety and sahkes after Alb. neb tx's.Received Pulm Rehab referral for Pt . Will contact Pt after she's been home for a week.
== END 2019-01-29 13:13 | disposition home or self-care (01) ==
LOC: ER 12:43
PROVIDERS: Emergency Provider Emergency Medicine; PCP Nurse Practitioner Family
DX: J44.0 Chronic obstructive pulmonary disease with (acute) lower respiratory infection (principal); F41.9 Anxiety disorder, unspecified
CPT/HCPCS: 80048; 94640; 96361; 96374; 99284; 85025; 94667; J2060; J7644

== ENCOUNTER 2019-02-01 12:06 | Emergency (ER) | payer OTHER, SELFPAY ==
[2019-02-01 12:11] VITALS: BP 184/78; PULSE 77; RESP 26; TEMP 37.7; O2SAT 100
--- NOTE | 2019-02-01 12:20 | ED.GENADUL_ITS ---
Discharge Plan Disposition Patient Disposition: HOME Condition: Fair Discharge Details Chief Complaint: Dizzy/Sync Clinical Impression: Breath, shortness, Palpitations Primary Care Provider: Chari Abdullahi ED Provider: Griselda Sotelo Home Meds and New Rx's Prescriptions: Continued acetaminophen [Tylenol Extra Strength] 500 MG tablet 500 mg PO PRN PRN (Reason: Pain) RF: 0 atorvastatin 20 mg Tablet 20 mg PO DAILY RF: 0 losartan 25 mg Tablet 50 mg PO DAILY RF: 0 metoprolol succinate 50 MG tablet extended release 24 hr 75 mg PO DAILY Qty: 45 RF: 0 nitroglycerin 0.4 MG tablet, sublingual 0.4 mg Sublingual Q5 MIN PRN X3 PRNQty: 10 RF: 0 aspirin [Aspir-Low] 81 MG tablet,delayed release (DR/EC) 81 mg PO DAILY RF: 0 albuterol sulfate 1.25 mg/3 mL Solution For Nebulization 1.25 mg INHALATION Q4H PRNRF: 0 albuterol sulfate [ProAir HFA] 90 mcg/actuation Hfa Aerosol Inhaler 2 puff INHALATION QID PRNRF: 0 Discharge Instructions Instructions: Palpitations (ED), Dyspnea (ED), Anxiolysis in Adults (ED) Additional Instructions: Encourage hydration. Continue with medications as previously prescribed. Please follow respiratory therapy outline of medications. Keep follow up appointment next week with primary care. At appointment please discuss your anxiety as well as possible need for cardiac monitoring such as a Holter monitor. If you develop chest pain, shortness of breath or other new/worsening symptoms please seek care urgently once again. Referrals: Chari Abdullahi [Primary Care Provider] - Discharge Data Discharge Date/Time-TO BE ENTERED AT DEPARTURE: 02/01/19 14:05 Medical Decision Making <Josh Bernal MD - Last Filed: 02/01/19 12:20> ECG Data Attestation: I personally reviewed and interpreted this ECG (s) as follows: Prior ECG tracings: not available for review Interpretation: sinus rhythm, rate of 75, pr 158, no acute st t wave iscehmic changes <ANSELMO Freitas - Last Filed: 02/03/19 16:58> Patient 73-year-old male presenting today with chief complaint of shortness of breath and feeling strange her heart racing. She reports that she blacked out twice. However, she reports that this lasted for only 1 second and she did not lose postural tone. Was at rest in a seated position when this occurred x2. Patient reports that this occurred after she used her nebulizer. Was not short of breath at the time she used a nebulizer. Rather, felt that this was a scheduled medication rather than a as needed. She denies any chest pain. States is been having several episodes of shortness of breath or recently. These typically occur when she is at rest. Patient has a history of atrial fibrillation historically, she is not anticoagulated. She has not been in atrial fibrillation quite some time. Reports that she was diagnosed with this over one year ago at which time she is very symptomatic. Is not had any episodes of atrial fibrillation since then states that this does not feel similar to when she has had this in the past. Patient was seen here 3 days ago at which time she was notably anxious and responded well to Ativan. There was thought to be a COPD exacerbation and respiratory evaluate the patient. Recommendations were made for medication changes and primary care to follow through these. Denies any recent illness, no fevers or chills On exam, patient appears very anxious, tachypneic teary. Vital signs are within normal limits with her oxygen being at 100%. She was reassured the patient and slow her breathing. When she came in few days ago she was having some altered sensation in her extremities associated with her tachypnea. This is not present today. Her lungs are clear. Concern for possible ACS, arrhythmia, infectious source, DVT. She has had to be having pain and likely to be dissection. Plan obtain chest x-ray, labs for evaluation, EKG. EKG reviewed by Dr. Bernal. He advised no acute ischemic changes, patient is in normal sinus rhythm with a rate of 75. Chest XR reviewed by radiologist, read to be negative Labs are reassuring. Troponin is less than 0.02. D-dimer is negative. Given the length of her symptoms, do not feel that repeat troponin is warranted at this time. Nor does her symptoms sound consistent with ACS given that she is typically at rest when they come on. I am concerned that her tachycardia that she is been experiencing reaction to be associated with her Ms. using her inhalers this may be causing her brief episodes of tachycardia. Respiratory came and evaluated the patient and reinstructed her again use of the medications. She was given written instructions as well as a reminder when and how to use medications. I discussed these findings with the patient. She was given strict return precautions. Patient I discussed at length the possibility of her having anxiety has an underlying source of her recurrent shortness of breath. She admits to feeling quite anxious around these episodes and agrees that typically the anxiety comes on prior to her shortness of breath. She was just discussed this further with her primary care and will do so at upcoming appointment. We discussed anxiety lytic techniques, in particular breathing techniques. All of her questions and concerns were addressed she is in agreement this plan HPI <Josh Bernal MD - Last Filed: 02/01/19 12:20> General Date/Time Provider Initiated Documentation: 02/01/19 12:11 . Related Data Home Medications Medication Instructions Recorded Confirmed acetaminophen [Tylenol Extra 500 mg PO PRN PRN 11/25/13 02/01/19 Strength] metoprolol succinate 75 mg PO DAILY #45 tabcr 07/30/17 02/01/19 nitroglycerin 0.4 mg SUBLINGUAL Q5 MIN PRN X3 07/30/17 02/01/19 PRN #10 tab.subl aspirin [Aspir-Low] 81 mg PO DAILY 01/25/18 02/01/19 albuterol sulfate 1.25 mg INHALATION Q4H PRN 01/14/19 02/01/19 albuterol sulfate [ProAir HFA] 2 puff INHALATION QID PRN 01/14/19 02/01/19 atorvastatin 20 mg PO DAILY 02/01/19 02/01/19 losartan 50 mg PO DAILY 02/01/19 02/01/19 Previous Rx's Medication Instructions Recorded metoprolol succinate 75 mg PO DAILY #45 tabcr 07/30/17 nitroglycerin 0.4 mg SUBLINGUAL Q5 MIN PRN X3 07/30/17 PRN #10 tab.subl Allergies Allergy/AdvReac Type Severity Reaction Status Date / Time morphine AdvReac Mild vomiting Verified 02/01/19 12:17 <ANSELMO Freitas - Last Filed: 02/03/19 16:58> General Mode of arrival: EMS . Limitations to Documentation: no limitations . Information obtained by: patient, EMS and RN notes reviewed . HPI Narrative: Patient is a 73-year-old female with history of recurrent parotitis, tobacco abuse, osteopenia, migraines, insomnia, atrial fibrillation, chest pain, COPD. She is presenting today with chief complaint of recurrent shortness of breath as well to episodes of blacking out. Patient lives alone but reports that she said his episodes were only 1 second. Did not lose postural tone. Was seated at the time when this occurred. Reports the first 1 occurred approximate 0700 this morning with a second 1 prior to arrival. She denies any chest pain. Endorses shortness of breath at this time. Reports that she felt skipping of her heart at the time that this occurred. States that she was nauseated prior to EMS arrival but this is since subsided. Did not have nausea with the initial event. Patient was seen here recently for COPD exacerbation. She was evaluated by respiratory therapy and medication changes were made. Has appointment scheduled with primary care next week General SEAMUS: 3 <ANSELMO Freitas - Last Filed: 02/03/19 16:58> Constitutional Reports as per HPI, Denies chills, Denies fever(s), Denies headache(s), Denies lethargy and Denies poor appetite Eyes Denies change in vision ENT Denies dizziness and Denies headache(s) Cardiovascular Reports as per HPI, Denies chest pain, Denies chest pain at rest, Denies irregular heart rhythm, Denies lightheadedness, Denies radiating jaw, neck or arm pain, Reports palpitations, Reports dyspnea and Denies dyspnea on exertion Respiratory Reports as per HPI, Denies chest congestion, Denies cough, Denies pain on inspiration, Denies pain with cough, Reports dyspnea, Denies dyspnea on exertion and Denies wheezing Gastrointestinal Reports as per HPI, Denies abdominal pain, Denies diarrhea, Denies nausea and Denies vomiting Musculoskeletal Reports as per HPI and Denies back pain Integumentary/Breasts Reports as per HPI and Denies rash Neurologic Reports as per HPI, Denies dizziness and Denies headache(s) Endocrine Reports palpitations Allergic/Immunologic Denies wheezing [facility] <Josh Bernal MD - Last Filed: 02/01/19 12:20> Social History Smoking/Tobacco Use Status: Former Tobacco Use Quit Date: 01/12/19 Alcohol Intake: never Drug use: Never Substance use type: does not use Do you feel safe at home: Yes Do you feel safe in your relationship?: Yes <NASELMO Freitas - Last Filed: 02/03/19 16:58> Const General: cooperative, healthy appearing, well developed and anxious (very anxious, tearing, tachypnic) Nutritional Appearance: average body habitus and well nourished Orientation: alert, awake and oriented x3 [facility] Head: normal to inspection Ears: hearing grossly normal bilaterally Mouth: moist mucous membranes Chest Chest: normal inspection of the chest, normal palpation of entire chest wall and no crepitus Resp Effort & Inspection: normal respiratory effort, able to speak in complete sentences, no respiratory distress and tachypneic Auscultation: clear to auscultation bilaterally, no rales, no rhonchi and no wheezes Cardio Rate: regular rate Rhythm: regular rhythm Heart Sounds: S1 normal and S2 normal GI Inspection: normal to inspection, no edema and non-distended Palpation: soft, no hepatosplenomegaly, not firm, no guarding, not rigid and nontender Auscultation: normal bowel sounds Back/Spine/Pelvis Back: no CVA tenderness Thoracic/Lumbar Spine: thoracic and lumbar spine normal to inspection Skin General skin exam: no rashes or lesions noted Trauma: no lacerations or abrasions Neuro General: alert, awake and oriented x3 Cognition: normal cognition Speech: speech normal Gait: normal gait Extrem General: normal to inspection, normal capillary refill, no pedal edema, no calf tenderness and normal gait Psych Appearance: grossly normal and well kempt Mental Status: mental status grossly normal Speech and Movement: speech and movement normal
--- NOTE | 2019-02-01 12:23 | DI.RAD_ITS ---
SYMPTOMS/DIAGNOSIS: SOB, PALPITATIONS PA AND LATERAL CHEST: The lungs are well expanded and free of infiltrate. There is no pleural effusion. The heart is not enlarged. The hilar structures, mediastinum and tracheal air column are well maintained. SUMMARY: No evidence of acute cardiopulmonary disease.
[2019-02-01 12:25] VITALS: RESP 21
[2019-02-01 12:42] LABS: Abs Immature Grans 0.01 k/cumm (0.0-0.09); Absolute Basophil Count 0.05 k/cumm (0.0-0.2); Absolute Lymphocyte Count 1.93 k/cumm (1.2-3.4); Absolute Monocyte Count 0.81 k/cumm (0.11-0.7); Absolute Neutrophil Count 6.47 k/cumm (1.2-6.7); Basophils % 0.5; Eosinophils % 1.1; HCT 41.1 % (36.0-46.0); HGB 14.4 g/dL (12.0-15.5); Immature Grans % 0.1; Lymphocytes % 20.6; Mean Corpuscular Hemoglobin 32.1 pg (27.0-33.0); Mean Corpuscular Volume 91.5 fL (80-95); Mean Platelet Volume 9.8 fL (8.0-11.0); Monocytes % 8.6; Neutrophils % 69.1; Platelet Count 289 x1000/uL (130-400); RBC 4.49 m/cumm (4.00-5.20); RBC Distribution Width 12.5 % (11.7-14.6); White Blood Cell Count 9.37 k/cumm (4.4-10.8)
[2019-02-01 12:52] LABS: PTT Activated 19.8 sec (21.0-31.4); Prothrombin Time 9.6 sec (9.3-11.0)
[2019-02-01 12:59] LABS: ALT 23 U/L (12-78); AST 13 U/L (15-37); Albumin 3.9 g/dL (3.4-5.0); Alkaline Phosphatase 67 U/L (46-116); Anion Gap 13.8 mmol/L (3-11); BUN 13 mg/dL (7-18); Bilirubin, Total 0.6 mg/dL (0.2-1.0); CO2 22.2 mmol/L (21.0-32.0); CREATININE 0.92 mg/dL (0.55-1.02); Calcium 9.5 mg/dL (8.5-10.1); Chloride 107 mmol/L (98-107); Glucose 97 mg/dL (70-100); Magnesium 1.8 mg/dL (1.8-2.4); Potassium 3.7 mmol/L (3.5-5.1); Sodium 143 mmol/L (136-145); TSH 2.27 uIU/mL (0.358-3.74); Total Protein 7.1 g/dL (6.4-8.2); Troponin I < 0.02 ng/mL (0.00-0.06)
[2019-02-01 13:10] LABS: D-Dimer 356 ng/mlFEU (<500)
--- NOTE | 2019-02-01 13:18 | RESPIRATORY ---
02/01/19-Pt brought in by Isabela for SOB and felt as thought she passed out for 1 sec. While going over Pt's resp meds she states she has been using her newly prescribed Levelalbuterol 4x's per day which is not the plan we had made on m Tuesday. She and I reread her plan which states Levalbuterol to be used only when SOB. Pt states she was confused and has been feeling ill after using the neb tx so frequently.
[2019-02-01 13:55] VITALS: BP 123/69; PULSE 72; RESP 16; TEMP 37.1; O2SAT 98
== END 2019-02-01 14:05 | disposition home or self-care (01) ==
PROVIDERS: Emergency Provider Physician Assistant; PCP Nurse Practitioner Family
DX: R06.02 Shortness of breath (principal); R00.2 Palpitations; R06.82 Tachypnea, not elsewhere classified; F41.9 Anxiety disorder, unspecified; I48.91 Unspecified atrial fibrillation
CPT/HCPCS: 36415; 80053; 93005; 99285; 71046; 83735; 84443; 84484; 85025; 85379; 85610; 85730; 93010

== ENCOUNTER 2019-02-01 17:17 | Emergency (ER) | payer OTHER, SELFPAY ==
[2019-02-01 17:21] VITALS: BP 189/82; PULSE 87; RESP 24; TEMP 36.2; O2SAT 100
--- NOTE | 2019-02-01 17:29 | W.ED.GENAD ---
Discharge Plan Disposition Patient Disposition: HOME Condition: Fair Discharge Details Chief Complaint: Anxiety Clinical Impression: Breath shortness Primary Care Provider: Chari Abdullahi ED Provider: Griselda Sotelo Home Meds and New Rx's Prescriptions: Continued acetaminophen [Tylenol Extra Strength] 500 MG tablet 500 mg PO PRN PRN (Reason: Pain) RF: 0 atorvastatin 20 mg Tablet 20 mg PO DAILY RF: 0 losartan 25 mg Tablet 50 mg PO DAILY RF: 0 metoprolol succinate 50 MG tablet extended release 24 hr 75 mg PO DAILY Qty: 45 RF: 0 nitroglycerin 0.4 MG tablet, sublingual 0.4 mg Sublingual Q5 MIN PRN X3 PRNQty: 10 RF: 0 aspirin [Aspir-Low] 81 MG tablet,delayed release (DR/EC) 81 mg PO DAILY RF: 0 albuterol sulfate 1.25 mg/3 mL Solution For Nebulization 1.25 mg INHALATION Q4H PRNRF: 0 albuterol sulfate [ProAir HFA] 90 mcg/actuation Hfa Aerosol Inhaler 2 puff INHALATION QID PRNRF: 0 Discharge Instructions Instructions: Dyspnea (ED) Additional Instructions: When symptoms come on, try slow deep breaths. Ten breaths in your nose and out your mouth in a controlled fashion. Your EKG, chest x-ray, blood work were all reassuring today. You need to be evaluated by your primary care, please call them tomorrow to schedule follow up appointment as soon as possible Referrals: Chari Abdullahi [Primary Care Provider] - Discharge Data Discharge Date/Time-TO BE ENTERED AT DEPARTURE: 02/01/19 19:13 Medical Decision Making Patient 73-year-old female presents again today chief complaint of shortness of breath. Patient appears very similar to her previous presentation. Her oxygen remains 100% and she is not tachycardic. She reports that shortly after eating when she returned home today that she began feeling short of breath once again. She is tearful and appears quite anxious. Per EMS report, she is very anxious upon their arrival. She denies any chest pain. Reports that feels like I cannot get oxygen in the lungs. Patient had chest x-ray, laboratory evaluation including troponin, d-dimer, CBC, CMP. Also evaluate EKG. All these were without significant abnormality. When she was here earlier, started her feeling of her heart racing and shortness of breath associated with her using the lab albuterol and appropriately which likely caused tachycardia and increased anxiety. I had discussed anxiety at length with the patient that time and she is to discuss this further with her primary care. The number discharged earlier today she was quite calm and was reassured by her evaluation here. Patient recently quit smoking. She some smoking cold turkey 3 weeks ago. Is been since that time she is been experiencing these issues. She has been having diminished appetite secondary to not being able to breathe eat since stopping smoking abruptly. Patient was a 50-year smoker. We examined the patient, her history and symptoms have low suspicion for ACS, PE, infectious source or other acute emergency. Patient had another episode of SOB, was teary and was concerned that she was having another attack. Her HR was auscultated and palpated by myself and noted to be regular rate and rythm with rate in the 80s. O2 100%. Advised the patient of these findings. I am concerned primarily that the patient is having a large amount of anxiety. She has had multiple work-ups here, I feel that work-up with a primary care is warranted at this time. Patient was given half milligram of Ativan as well as inhaled nicotine as her increased anxiety may be associated with her smoking cessation recently. Advised that the long run, I would encourage smoking cessation, however, with her current anxiety and concern that these 2 may be linked. Advised that she discuss this further with her primary. Advised that she may need nicotine supplement to help with successful cessation. Patient requested hospitalization these episodes. However, as I do not have a medical reason to admit her at this time I advised against this. Rather, I asked if she could find be able to stay with her. She contacted her daughter will be able to stay with her for the evening and this did calm her quite a bit. Encourage prompt follow-up with primary care tomorrow. She was given strict return precautions. All her questions and concerns were addressed she is in agreement this Prior to discharge, patient was feeling much improved after Ativan. She is questioning if she may be prescribed Ativan given the patient's age and risk for fall and hesitant to do this at this time. I discussed with the patient and she voices understanding HPI General Mode of arrival: EMS. Date/Time Provider Initiated Documentation: 02/01/19 17:28. Limitations to Documentation: no limitations. Information obtained by: patient and RN notes reviewed. History of Present Illness 73 year old F presents to the emergency department with the chief complaint of anxiety, shortness of breath, described as severe and similar to prior episodes, HPI Narrative: Patient is a 73 year old female presenting with SOB. She ws seen here earlier today for same symptoms. She has been here on previous days for the same issue. REports feels SOB suddenly and begins to feel very anxious. No identified precipitating factors. Reports that she was sitting and talking on the phone with her daughter after eating when this episode came on. Immediately called EMS. Patient is now reporting that these symptoms began after she stopped smoking three weeks ago. Previous workups have not shown source of her sudden episodes of SOB. Related Data Home Medications Medication Instructions Recorded Confirmed acetaminophen [Tylenol Extra 500 mg PO PRN PRN 11/25/13 02/01/19 Strength] metoprolol succinate 75 mg PO DAILY #45 tabcr 07/30/17 02/01/19 nitroglycerin 0.4 mg SUBLINGUAL Q5 MIN PRN X3 07/30/17 02/01/19 PRN #10 tab.subl aspirin [Aspir-Low] 81 mg PO DAILY 01/25/18 02/01/19 albuterol sulfate 1.25 mg INHALATION Q4H PRN 01/14/19 02/01/19 albuterol sulfate [ProAir HFA] 2 puff INHALATION QID PRN 01/14/19 02/01/19 atorvastatin 20 mg PO DAILY 02/01/19 02/01/19 losartan 50 mg PO DAILY 02/01/19 02/01/19 Previous Rx's Medication Instructions Recorded metoprolol succinate 75 mg PO DAILY #45 tabcr 07/30/17 nitroglycerin 0.4 mg SUBLINGUAL Q5 MIN PRN X3 07/30/17 PRN #10 tab.subl Allergies Allergy/AdvReac Type Severity Reaction Status Date / Time morphine AdvReac Mild vomiting Verified 02/01/19 12:17 General Stated Complaint: Anxiety SEAMUS: 3 Review of Systems Constitutional Reports as per HPI, Denies chills, Denies fever(s), Denies headache(s), Denies lethargy and Denies poor appetite Eyes Denies change in vision ENT Denies dizziness and Denies headache(s) Cardiovascular Reports as per HPI, Denies chest pain, Denies chest pain at rest, Denies edema, Denies irregular heart rhythm, Denies lightheadedness, Denies radiating jaw, neck or arm pain, Denies palpitations, Reports dyspnea and Denies dyspnea on exertion Respiratory Reports as per HPI, Denies chest congestion, Denies cough, Denies pain on inspiration, Denies pain with cough, Reports dyspnea, Denies dyspnea on exertion and Denies wheezing Gastrointestinal Reports as per HPI, Denies abdominal pain, Denies diarrhea, Denies nausea and Denies vomiting Musculoskeletal Reports as per HPI and Denies back pain Integumentary/Breasts Reports as per HPI and Denies rash Neurologic Reports as per HPI, Denies dizziness and Denies headache(s) Psychiatric Reports anxiety Endocrine Denies palpitations Allergic/Immunologic Denies wheezing [facility] Medical History Atrial fibrillation (Chronic) COPD (chronic obstructive pulmonary disease) (Chronic) Pancreatitis (Chronic) Surgical History History of bilateral tubal ligation (Acute) H/O bladder repair surgery (Chronic) H/O section (Chronic) History of hysterectomy (Chronic) History of tonsillectomy (Chronic) Trigger Finger release (11/12/13) Social History Smoking/Tobacco Use Status: Former Tobacco Use Quit Date: 01/12/19 Alcohol Intake: never Drug use: Never Substance use type: does not use Do you feel safe at home: Yes Do you feel safe in your relationship?: Yes Exam Const General: cooperative, healthy appearing, comfortable, no acute distress, well developed and anxious (very anxious and teary) Nutritional Appearance: average body habitus and well nourished Orientation: alert, awake and oriented x3 [facility] Head: normal to inspection Ears: hearing grossly normal bilaterally Mouth: moist mucous membranes Chest Chest: normal inspection of the chest, normal palpation of entire chest wall and no crepitus Resp Effort & Inspection: normal respiratory effort, able to speak in complete sentences, no respiratory distress and tachypneic Auscultation: clear to auscultation bilaterally, no rales, no rhonchi and no wheezes Cardio Rate: regular rate Rhythm: regular rhythm Heart Sounds: S1 normal and S2 normal GI Inspection: normal to inspection, no edema and non-distended Palpation: soft, no hepatosplenomegaly, not firm, no guarding, not rigid and nontender Auscultation: normal bowel sounds Back/Spine/Pelvis Back: no CVA tenderness Thoracic/Lumbar Spine: thoracic and lumbar spine normal to inspection Skin General skin exam: no rashes or lesions noted Trauma: no lacerations or abrasions Neuro General: alert, awake and oriented x3 Cognition: normal cognition Speech: speech normal Gait: normal gait Extrem General: normal to inspection, normal capillary refill, no pedal edema, no calf tenderness and normal gait Psych Appearance: grossly normal and well kempt Mental Status: mental status grossly normal Speech and Movement: speech and movement normal Course Vital Signs Temperature 36.2 C L 02/01/19 17:21 Pulse 87 02/01/19 17:21 Respiratory Rate 24 02/01/19 17:21 Blood Pressure 189/82 H 02/01/19 17:21 Pulse Oximetry 100 02/01/19 17:21 Temperature 36.2 C L 02/01/19 17:21 Temperature Source Skin 02/01/19 17:21 Pulse 87 02/01/19 17:21 Respiratory Rate 24 02/01/19 17:21 Blood Pressure 189/82 H 02/01/19 17:21 Blood Pressure Position Sitting 02/01/19 17:21 Pulse Oximetry 100 02/01/19 17:21 Oxygen Delivery Method Room Air 02/01/19 17:21 Oxygen Flow Rate 0 02/01/19 17:21
[2019-02-01] MEDS: LORazepam 0.5 MG TAB PO (17:36)
--- NOTE | 2019-02-01 18:42 | NUR.NOTE ---
Nursing Note: Referral faxed to [facility] for follow up for tomorrow, TuesdayFebruary 02. Fátima Dumont.
[2019-02-01 19:10] VITALS: RESP 24
[2019-02-01 19:12] VITALS: BP 189/82; PULSE 87; RESP 24; TEMP 36.2; O2SAT 100
== END 2019-02-01 19:13 | disposition home or self-care (01) ==
PROVIDERS: Emergency Provider Physician Assistant; PCP Nurse Practitioner Family
DX: R06.02 Shortness of breath (principal); F41.9 Anxiety disorder, unspecified; Z87.891 Personal history of nicotine dependence; J44.9 Chronic obstructive pulmonary disease, unspecified
CPT/HCPCS: 80053; 99283; 83735; 84484; 85025

== ENCOUNTER 2019-02-08 01:56 | Outpatient (RCR) | payer OTHER, SELFPAY | END 2019-03-09 23:59 | disposition home or self-care (01) | LOC: PRC 01:56 | PROVIDERS: PCP Nurse Practitioner Family; Visit Provider Family Medicine | DX: Z51.89 Encounter for other specified aftercare (principal) ==

== ENCOUNTER 2019-02-21 13:53 | Outpatient (CLI) | payer OTHER, SELFPAY ==
--- NOTE | 2019-02-21 14:59 | DI.RAD_ITS ---
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 There is a lower cervical kyphosis. There is disc space loss of height at C 5-6 and C 6-7. There are mild hypertrophic degenerative changes involving the facet joints and endplates at multiple levels. Neural foramina on the left are fairly well visualized and appear well maintained. Neural foramina on the right are not well seen due to difficulties in positioning. No other significant bony abnormality is seen. CONCLUSION: Degenerative changes of the cervical spine.
== END 2019-02-21 14:13 ==
PROVIDERS: PCP Nurse Practitioner Family; Visit Provider Nurse Practitioner Family
DX: M54.2 Cervicalgia (principal); G89.29 Other chronic pain; M47.812 Spondylosis without myelopathy or radiculopathy, cervical region
CPT/HCPCS: 72050

== ENCOUNTER 2019-07-24 01:29 | Outpatient (CLI) | payer OTHER, SELFPAY ==
--- NOTE | 2019-07-24 10:47 | DI.MAMMO_ITS ---
EXAM: MG MAMMO SCREENING CLINICAL HISTORY: SCREENING, [facility] Z00.00 TECHNIQUE: Mammograms were interpreted according to the usual protocol including computer analysis w [employer] system, tomosynthesis and C-view imaging. COMPARISON: Current examination is compared with previous examinations including October 2017 FINDINGS: Breasts are of moderate density with fairly symmetrical distribution of fibroglandular tissue. No do minant mass or clumped microcalcification is identified in either breast. Current examination is com pared with previous examinations including October 2017 and there has been no gross interval change i n appearance in comparison with previous studies. IMPRESSION: No specific evidence of malignancy at this time. Routine screening examinations are suggested yearly intervals in this age group according to the ACS/ACR guidelines. Category 1, breast density category B. BI-RADS Cat 1 - Negative Breast Density - Category B - Scattered areas of fibroglandular density
== END 2019-07-24 01:49 ==
PROVIDERS: PCP Nurse Practitioner Family; Visit Provider Nurse Practitioner Family
DX: Z12.31 Encounter for screening mammogram for malignant neoplasm of breast (principal)
CPT/HCPCS: 77063; 77067

== ENCOUNTER 2020-02-18 09:23 | Outpatient (REF) | payer OTHER, SELFPAY ==
[2020-02-18 20:43] LABS: ALT 31 U/L (14-59); Anion Gap 7.6 mmol/L (3-11); BUN 17 mg/dL (7-18); CO2 29.4 mmol/L (21.0-32.0); CREATININE 0.91 mg/dL (0.55-1.02); Calcium 8.9 mg/dL (8.5-10.1); Calculated LDL 40 mg/dL (<100); Chloride 104 mmol/L (98-107); Cholesterol 121 mg/dL (<200); Glucose 105 mg/dL (74-106); HDL Cholesterol 69 mg/dL (40-60); Potassium 4.5 mmol/L (3.5-5.1); Sodium 141 mmol/L (136-145); Triglyceride 61 mg/dL (<150)
[2020-02-18 20:55] LABS: Creatine Kinase 137 U/L (26-192)
[2020-02-19 09:42] LABS: AST 21 U/L (15-37)
== END 2020-02-18 09:43 ==
LOC: NCHCN 09:23
PROVIDERS: PCP Nurse Practitioner Family; Visit Provider Nurse Practitioner Family
DX: I10 Essential (primary) hypertension (principal); F41.9 Anxiety disorder, unspecified; J44.9 Chronic obstructive pulmonary disease, unspecified; Z86.59 Personal history of other mental and behavioral disorders; I48.91 Unspecified atrial fibrillation; E78.5 Hyperlipidemia, unspecified
CPT/HCPCS: 80048; 80061; 82550; 84450; 84460

== ENCOUNTER 2020-06-19 02:30 | Outpatient (CLI) | payer OTHER, SELFPAY ==
--- NOTE | 2020-06-19 14:34 | DI.DEXA_ITS ---
EXAM: XR DEXA BONE DENSITY W/WO [facility] CLINICAL HISTORY: POST MENOPAUSAL STATE Z78.0 TECHNIQUE: COMPARISON: Comparison examination is 11/07/2013. FINDINGS: Lateral Spine Image: Unremarkable. No compression deformities identified. Left hip: Total T-Score: -2.3. This compares with -2.2 on the prior examination. Total Z-Score: -0.7. T- and Z-scores: Findings consistent with osteopenia and increased fracture risk. Lumbar Spine: Total T-Score: -0.9. This compares with -1.2 from the prior examination. Total Z-Score: 1.4. T- and Z-scores: Within normal limits. IMPRESSION: Osteopenia in the left hip.
== END 2020-06-19 02:50 ==
PROVIDERS: PCP Nurse Practitioner Family; Visit Provider Nurse Practitioner Family
DX: Z78.0 Asymptomatic menopausal state (principal); M85.88 Other specified disorders of bone density and structure, other site
CPT/HCPCS: 77080

== ENCOUNTER 2020-12-16 14:54 | Outpatient (REF) | payer OTHER, SELFPAY ==
[2020-12-16 18:59] LABS: ALT 29 U/L (14-59); AST 20 U/L (15-37); BUN 20 mg/dL (7-18); CREATININE 0.8 mg/dL (0.55-1.02); Calcium 9.1 mg/dL (8.5-10.1); Chloride 102 mmol/L (98-107); Glucose 106 mg/dL (74-106); HDL Cholesterol 64 mg/dL (40-60); LDL CHOLESTEROL 63 mg/dL (<100); Potassium 4.1 mmol/L (3.5-5.1); Sodium 140 mmol/L (136-145)
[2020-12-16 19:10] LABS: Creatine Kinase 182 U/L (26-192)
== END 2020-12-16 14:55 | disposition home or self-care (01) ==
LOC: NCHCN 14:54
PROVIDERS: PCP Nurse Practitioner Family; Visit Provider Nurse Practitioner Family
DX: E78.5 Hyperlipidemia, unspecified (principal); I10 Essential (primary) hypertension
CPT/HCPCS: 80048; 82550; 83721; 83718; 84450; 84460

== ENCOUNTER 2020-12-24 01:06 | Outpatient (CLI) | payer OTHER, SELFPAY ==
--- NOTE | 2020-12-24 | DI.MAMMO_ITS ---
EXAM: MG MAMMO SCREENING CLINICAL HISTORY: SCREENING, Z12.39. TECHNIQUE: Bilateral full field digital CC and MLO mammographic images were obtained with 3D tomosyn thesis and utilizing computer aided detection (CAD). COMPARISON: Prior mammograms dating back to 2010, the most recent being July 2019. FINDINGS: There are no spiculated masses nor malignant appearing microcalcification groups. There is no signif icant architectural distortion nor skin thickening-retraction. IMPRESSION: No radiographic evidence of malignancy. BI-RADS Category 1 - Negative Breast Density - Category B - Scattered areas of fibroglandular density Breast density Category C or D implies that the patient has dense breast tissue. Dense breast tissue can make it harder to find cancer on a mammogram. Dense breast tissue is also associated with an incr eased risk of breast cancer. This information about the result of the mammogram report was provided to the patient to raise their awareness. Use this report when you speak with the patient about their risks for breast cancer, which includes their family history. At that time, you may recommend additional screening tests (Ultrasoun d or MRI) as these tests may add significant information. A negative radiographic report should not delay biopsy if a dominant or clinically suspicious mass is present. Up to ten percent of cancers are not identified on mammography. A negative report may reinforce clinical impression. Adenosis and dense breasts may obscure an underlying neoplasm. False positive reports average 6 to 10%. Patient will receive a letter notifying them of these results.
== END 2020-12-24 01:26 ==
PROVIDERS: PCP Nurse Practitioner Family; Visit Provider Nurse Practitioner Family
DX: Z12.31 Encounter for screening mammogram for malignant neoplasm of breast (principal)
CPT/HCPCS: 77063; 77067

== ENCOUNTER 2021-02-14 14:35 | Inpatient (IN) | payer OTHER, SELFPAY ==
[2021-02-14] VITALS (33 sets, daily range): BP systolic 115–165; BP diastolic 47–121; PULSE 72–95; RESP 12–25; TEMP 36.4–36.7; O2SAT 90–98
--- NOTE | 2021-02-14 | DI.RAD_ITS ---
Exam(s) XR PORTABLE CHEST AP EXAM: XR PORTABLE CHEST AP CLINICAL HISTORY: COPD; preop. TECHNIQUE: 2D digital imaging was performed. COMPARISON: CR XR CHEST 2V PA LATERAL from 02/01/2019 FINDINGS: Heart size is upper normal. The mediastinum is not widened. There are no confluent pulmonary infiltrates nor pleural effusions. No distinct pulmonary nodules. No pneumothorax. IMPRESSION: No acute pulmonary findings on this single AP portable view of the chest. If clinically indicated follow-up CT scan can be performed. DATA REPOSITORY: RADIATION DOSE DELIVERED: All CT scans at this facility use at least one of these dose optimization techniques: automated exposure control; mA and/or kV adjustment per patient size (includes targeted e xams where dose is matched to clinical indication); or iterative reconstruction.
--- NOTE | 2021-02-14 14:30 | DI.RAD_ITS ---
Exam(s) XR PELVIS AP EXAM: XR PELVIS AP CLINICAL HISTORY: fall, suspect left hip fx. TECHNIQUE: 2D digital imaging was performed. COMPARISON: No exams were available for comparison FINDINGS: There is a displaced subcapital fracture of the left hip. Right hip appears intact. No other pelvic fractures identified. IMPRESSION: Left hip subcapital fracture. DATA REPOSITORY: RADIATION DOSE DELIVERED:
--- NOTE | 2021-02-14 14:30 | RT.EKG_ITS ---
APPROVED REPORT Exam: Resting ECG Reason for Exam: fall Patient Location: E HR:81 bpm ECG Measurements Heart Rate 81 AXIS FL 207 P 51 QRSd 69 QRS 10 QT 367 T 25 QTc 428 Conclusion Sinus rhythm...normal P axis, V-rate 60- 99 Probable left atrial enlargement...P >50mS, <-0.10mV V1 Anteroseptal infarct, old...Q >40mS, V1-V2 Physician: No stemi Otherwise unremarkable ECG
--- NOTE | 2021-02-14 14:30 | DI.RAD_ITS ---
Exam(s) XR FEMUR LT EXAM: XR FEMUR LT CLINICAL HISTORY: fall, suspect left hip fx. TECHNIQUE: 2D digital imaging was performed. COMPARISON: No exams were available for comparison FINDINGS: There is a displaced subcapital fracture of the femoral neck. No osseous lesion evident. No other f ractures lower down in the femur. IMPRESSION: Displaced subcapital hip fracture. DATA REPOSITORY: RADIATION DOSE DELIVERED:
--- NOTE | 2021-02-14 14:41 | ED.GENADUL_ITS ---
Discharge Plan Disposition Patient Disposition: [facility] INPATIENT Condition: Stable Discharge Details Clinical Impression: Closed fracture of neck of left femur Primary Care Provider: Chari Abdullahi ED Provider: Reji Colin Home Meds and New Rx's Prescriptions: No Action acetaminophen [Tylenol Extra Strength] 500 MG tablet 500 mg PO PRN PRN (Reason: Pain) RF: 0 atorvastatin 20 mg Tablet 20 mg PO DAILY RF: 0 losartan 25 mg Tablet 50 mg PO DAILY RF: 0 metoprolol succinate 50 MG tablet extended release 24 hr 75 mg PO DAILY Qty: 45 RF: 0 nitroglycerin 0.4 MG tablet, sublingual 0.4 mg Sublingual Q5 MIN PRN X3 PRNQty: 10 RF: 0 aspirin [Aspir-Low] 81 MG tablet,delayed release (DR/EC) 81 mg PO DAILY RF: 0 albuterol sulfate 1.25 mg/3 mL Solution For Nebulization 1.25 mg INHALATION Q4H PRNRF: 0 albuterol sulfate [ProAir HFA] 90 mcg/actuation Hfa Aerosol Inhaler 2 puff INHALATION QID PRNRF: 0 Spiriva with HandiHaler 18 mcg capsule, w/inhalation device 1 cap INHALATION DAILY RF: 0 budesonide-formoterol [Symbicort] 80-4.5 mcg/actuation HFA aerosol inhaler 1 puff INHALATION BID RF: 0 Medical Decision Making 75-year-old female with a past medical history of osteopenia, hypertension, COPD, on daily aspirin, presents today for evaluation of left hip pain. Patient was at home and trying to knock down a hornets nest. She was standing on ground-level, when she had her arms above her head for some time cause her to get lightheaded and slightly dizzy. She then fell and landed on her left hip. She was not able to get up. She did not hit her head, she did not lose consciousness, she states she recalls the entire event. She states she often gets lightheaded when she puts her arms above her head. She denies any history of syncope otherwise. Last time she ate was at noon 2-1/2 hours ago. No other complaints at this time. Physical exam demonstrates no trauma or tenderness over the cervical thoracic or lumbar spine. No facial tenderness. Glucose is normal. Left hip is notably tender, shortened and rotated, concern for fracture. Will get x-ray, treat her pain, and screening EKG, monitor closely and reassess. 4:15 PM X-ray shows evidence of a left subcapital femoral neck fracture. No other acute process. A contact Dr. Oliveira discussed the case with him. He agrees with the need for surgery. Expected surgery tomorrow. Will make n.p.o. after midnight. Plan is to admit to hospitalist for medical management. I did contact anesthesia for fascial iliac block. Will page hospitalist for admission. 4:31 PM Discussed the case with Dr. Kessler, she agrees with the assessment and plan and will place admission orders. I have extensively reviewed the treatment plan with the patient. I have addressed all patient concerns at this time. I have also discussed the plan with the admitting physician and they agree with the current assessment and plan and have agreed to assume responsibility for the patient. All parties demonstrate verbal understanding and agreement with our assessment and plan at this time. The documentation in this chart was dictated using [employer] dictation software. Please excuse any dictation errors. FINDINGS: Bones/joints: There is a left subcapital femoral neck fracture with mild proximal and lateral displacement. Chronic degenerative changes of the lumbar spine are present. Soft tissues: Unremarkable. IMPRESSION: 1. Left subcapital femoral neck fracture. 2. Chronic degenerative changes of the lumbosacral spine. Thank you for allowing us to participate in the care of your patient. Dictated and Authenticated by: Ty Zelaya MD 02/14/2021 4:08 PM Eastern Time ([place] & [place]) FINDINGS: Bones/joints: Left subcapital femoral fracture with mild proximal and lateral displacement. Soft tissues: Unremarkable. IMPRESSION: Left subcapital femoral neck fracture. Thank you for allowing us to participate in the care of your patient. Dictated and Authenticated by: Ty Zelaya MD 02/14/2021 4:06 PM Eastern Time ([place] & [place]) HPI General Date/Time Provider Initiated Documentation: 02/14/21 14:36 . HPI Narrative: 75-year-old female with a past medical history of osteopenia, hypertension, COPD, on daily aspirin, presents today for evaluation of left hip pain. Patient was at home and trying to knock down a hornets nest. She was standing on ground-level, when she had her arms above her head for some time cause her to get lightheaded and slightly dizzy. She then fell and landed on her left hip. She was not able to get up. She did not hit her head, she did not lose consciousness, she states she recalls the entire event. She states she often gets lightheaded when she puts her arms above her head. She denies any history of syncope otherwise. Last time she ate was at noon 2-1/2 hours ago. No other complaints at this time. Related Data Home Medications Medication Instructions Recorded Confirmed acetaminophen [Tylenol Extra 500 mg PO PRN PRN 11/25/13 02/14/21 Strength] metoprolol succinate 75 mg PO DAILY #45 tabcr 07/30/17 02/14/21 nitroglycerin 0.4 mg SUBLINGUAL Q5 MIN PRN X3 07/30/17 02/14/21 PRN #10 tab.subl aspirin [Aspir-Low] 81 mg PO DAILY 01/25/18 02/14/21 albuterol sulfate 1.25 mg INHALATION Q4H PRN 01/14/19 02/14/21 albuterol sulfate [ProAir HFA] 2 puff INHALATION QID PRN 01/14/19 02/14/21 atorvastatin 20 mg PO DAILY 02/01/19 02/14/21 losartan 50 mg PO DAILY 02/01/19 02/14/21 budesonide-formoterol [Symbicort] 1 puff INHALATION BID 02/14/21 02/14/21 tiotropium bromide [Spiriva with 1 cap INHALATION DAILY 02/14/21 02/14/21 HandiHaler] Previous Rx's Medication Instructions Recorded metoprolol succinate 75 mg PO DAILY #45 tabcr 07/30/17 nitroglycerin 0.4 mg SUBLINGUAL Q5 MIN PRN X3 07/30/17 PRN #10 tab.subl Allergies Allergy/AdvReac Type Severity Reaction Status Date / Time morphine AdvReac Mild vomiting Verified 02/14/21 14:38 General Stated Complaint: Orthopedic SEAMUS: 3 Review of Systems All systems reviewed & are unremarkable except as noted in HPI and below PFSH Medical History (Updated 02/14/21 @ 16:17 by Reji Colin DO) Atrial fibrillation COPD (chronic obstructive pulmonary disease) Pancreatitis Surgical History H/O bladder repair surgery H/O section History of bilateral tubal ligation History of hysterectomy History of tonsillectomy Trigger Finger release (11/12/13) R Thumb Social History Smoking/Tobacco Use Status: Former Tobacco Use Quit Date: 01/12/19 Smoking risk assessment performed?: Yes Alcohol Intake: never Drug use: Never Substance use type: does not use Do you feel safe at home: Yes Do you feel safe in your relationship?: Yes Exam Narrative Exam Narrative: 1.Const: Well-nourished, Well-developed, appearing stated age 2.Eyes: PERRL, no conjunctival injection, and symmetrical lids. 3.ENT: Atraumatic external nose and ears. Moist MM. Neck: Symmetric, trachea midline, No thyromegaly. There is no evidence of raccoon eyes, thompson sign, CSF rhinorrhea, mastoid tenderness, cranial crepitus, hemotympanum, exophthalmos, or hyphema. Patient demonstrates intact dentition with no signs of tooth avulsion or fracture, no signs of jaw deformity, no evidence of a LeFort's fracture, with an intact palate, nose and orbital region. There is no evidence of a nasal septal hematoma. No proptosis. Jaw closes symmetrically. Airway is clear. 4.CVS: +S1/S2, No murmurs or gallops. Peripheral pulses 2+ and equal in all extremities. Brisk capillary refill in all extremities. 5.RESP: Unlabored respiratory effort. Clear to auscultation bilaterally. No wheezes rales or rhonchi 6.GI: Soft, Nontender/Nondistended, No hepatosplenomegaly. No guarding or rebound. 7.MSK: Normocephalic, patient demonstrates shortening and external rotation of the left lower extremity. Notable tenderness over the left hip/greater trochant er. No tenderness over the knee, femur midshaft, tib-fib/left ribs. No other evidence of trauma. No midline cervical thoracic or lumbar spine tenderness. Notable pain in the left hip with logroll of the left leg. 8.Skin: Warm, Dry. No rashes or lesions. 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 Sensation grossly intact, no focal neurologic deficits. 10.Psych: (AAO) x3. Appropriate mood and affect Course Vital Signs Vital signs: Vital Signs Temperature 36.7 C 02/14/21 14:30 Pulse 95 H 02/14/21 14:30 Respiratory Rate 18 02/14/21 14:30 Blood Pressure 153/121 H 02/14/21 14:30 Pulse Oximetry 97 02/14/21 14:30 Temperature 36.7 C 02/14/21 14:30 Temperature Source Temporal Artery Scan 02/14/21 14:30 Pulse 95 H 02/14/21 14:30 Respiratory Rate 18 02/14/21 14:30 Respiratory Effort Non-Labored 02/14/21 14:38 Blood Pressure 153/121 H 02/14/21 14:30 Blood Pressure Position Supine 02/14/21 14:30 Pulse Oximetry 97 02/14/21 14:30 Oxygen Delivery Method Room Air 02/14/21 14:30 Oxygen Flow Rate 0 02/14/21 14:30
[2021-02-14 14:48] LABS: Abs Immature Grans 0.07 10^3/uL (0.0-0.06); Absolute Basophil Count 0.11 10^3/uL (0.0-0.2); Absolute Eosinophil Count 0.55 10^3/uL (0.0-0.7); Absolute Lymphocyte Count 2.48 10^3/uL (1.2-3.4); Absolute Monocyte Count 1.02 10^3/uL (0.1-0.8); Eosinophils % 4.9; HCT 38.4 % (36.0-46.0); HGB 13.5 g/dL (11.2-15.7); Immature Grans % 0.6; Lymphocytes % 22.1; MCH 33.7 pg (27.0-33.0); MCHC 35.2 % (32.0-36.0); MCV 95.8 fL (80-95); MPV 9.4 fL (8.0-11.0); Monocytes % 9.1; Neutrophils % 62.3; Nucleated RBC 0 %; Platelet Count 261 10^3/uL (130-400); RBC 4.01 10^6/uL (3.93-5.22); RDW-SD 42.6 fL; WBC 11.24 10^3/uL (4.4-10.8)
[2021-02-14] MEDS: ACETAMINOPHEN 1,000 MG/100 ML BTL 400 MG IVPB ×2 (14:48→22:09)
[2021-02-14] MEDS: Ondansetron 4 MG/2 ML VIAL IVP (14:48)
[2021-02-14 15:02] LABS: ALT 24 U/L (14-59); AST 18 U/L (15-37); Albumin 3.2 g/dL (3.4-5.0); Alkaline Phosphatase 70 U/L (46-116); Anion Gap 8.8 mmol/L (3-11); BUN 17 mg/dL (7-18); Bilirubin, Total 0.3 mg/dL (0.2-1.0); CO2 26.2 mmol/L (21.0-32.0); CREATININE 0.8 mg/dL (0.55-1.02); Calcium 8.8 mg/dL (8.5-10.1); Chloride 104 mmol/L (98-107); Glucose 103 mg/dL (74-106); Potassium 3.4 mmol/L (3.5-5.1); Sodium 139 mmol/L (136-145); Total Protein 6.5 g/dL (6.4-8.2)
--- NOTE | 2021-02-14 16:06 | DI.VRAD_ITS ---
PROCEDURE INFORMATION: Exam: XR Left Femur Exam date and time: 02/14/2021 3:37 PM Age: 75 years old Clinical indication: Pain; Other: Fall suspect lt hip FX TECHNIQUE: Imaging protocol: XR Left femur. Views: 2 views. COMPARISON: No relevant prior studies available. FINDINGS: Bones/joints: Left subcapital femoral fracture with mild proximal and lateral displacement. Soft tissues: Unremarkable. IMPRESSION: Left subcapital femoral neck fracture. Dictated and Authenticated by: Ty Zelaya MD. Ordering:TUNDE Mendoza MD
--- NOTE | 2021-02-14 16:08 | DI.VRAD_ITS ---
PROCEDURE INFORMATION: Exam: XR Pelvis Exam date and time: 02/14/2021 3:37 PM Age: 75 years old Clinical indication: Pain; Other: Fall suspect lt hip FX TECHNIQUE: Imaging protocol: XR pelvis. Views: 1 or 2 view. COMPARISON: CT CHEST ABD PELVIS WITH CONTRAST 08/10/2017 12:49 PM FINDINGS: Bones/joints: There is a left subcapital femoral neck fracture with mild proximal and lateral displacement. Chronic degenerative changes of the lumbar spine are present. Soft tissues: Unremarkable. IMPRESSION: 1. Left subcapital femoral neck fracture. 2. Chronic degenerative changes of the lumbosacral spine. Dictated and Authenticated by: Ty Zelaya MD. Ordering:TUNDE Mendoza MD
--- NOTE | 2021-02-14 16:38 | W.PM.HP.N ---
Date of service: 02/14/21 Time of Service: 16:38 Assessment and Plan Assessment and plan (1) Closed fracture of neck of left femur: Status: Acute Assessment and plan: NPO for OR tomorrow. Receiving a block by nilton with hopes of pain relief as the patient has been nauseated with narcotics by EMS and in ED. Heredia Catheter. IS. Frequent repositioning. Bowel regimen. Preop w/u: Obtain CXR given O2 sats of 88%. Obtain Troponin given dizziness. Monitor on tele. Check magnesium; replete K. Check vitamin D. (2) Dizziness: Status: Acute Assessment and plan: As above - monitor on tele, check troponin, lytes. Could be due to vertigo. (3) COPD (chronic obstructive pulmonary disease): Status: Chronic Assessment and plan: Not clinically in acute exacerbation but O2 sat is borderline. Continue home symbicort and prn albuterol. Provide IS. The patient might have to be on O2 on discharge. COVID-19 is being checked routinely and is not suspected. Check CXR. (4) Osteopenia: Status: Chronic Assessment and plan: Check vitamin D level (5) Paroxysmal atrial fibrillation: Status: Resolved Assessment and plan: Per patient, this happened only once in her life. Monitor on tele given dizziness today. (6) Tobacco use: Status: Chronic Assessment and plan: Provide nicotine replacement (7) Hypokalemia: Status: Acute Assessment and plan: Replete; check magnesium (8) DVT prophylaxis: Status: Acute Assessment and plan: Heparin SC until midnight in anticipation of procedure. SCDs. (9) Discharge planning issues: Status: Acute Assessment and plan: Full code Admit to inpatient status History of Present Illness History of Present Illness Chief Complaint: fall, left hip pain Narrative: Ms Morel is a 75 year old female with PMHx of lonel Afib, not on anticoagulation but on asa, as well as h/o non-oxygen dependent COPD, hypertension, hyperlipidemia, tobacco abuse, osteopenia, and vertigo, who got dizzy today while elevating her arms in the process of trying to take down a hornets' nest and sustained a fall, fracturing her L hip. She is expected to undergo surgery tomorrow by Dr Oliveira. Hospitalist admission was requested. She specifically denies chest pain, shortness of breath, symptoms of or exposure to COVID-19. In fact, she is fully vaccinated against COVID-19 (Moderna). Review of Systems All systems reviewed & are unremarkable except as noted in HPI and below PFSH Medical History (Updated 02/14/21 @ 17:14 by Marlen Kessler MD) Atrial fibrillation lone Afib, on asa COPD (chronic obstructive pulmonary disease) Hyperlipidemia Hypertension Pancreatitis Tobacco abuse Vertigo Surgical History H/O bladder repair surgery H/O section History of bilateral tubal ligation History of hysterectomy History of tonsillectomy Trigger Finger release (11/12/13) R Thumb Family History (Updated 02/14/21 @ 16:59 by Marlen Kessler MD) Sister Heart disease Hypertension Sister Hypertension Brother Cancer lung cancer - associated with agent orange exposure Social History (Updated 02/14/21 @ 17:00 by Marlen Kessler MD) Smoking/Tobacco Use Status: Current-Occasional Tobacco Type: cigarettes Tobacco: How many years used: 58 Quit status: considering quitting Counseling given: provider counseling Smoking risk assessment performed?: Yes Alcohol Intake: current Alcohol Intake frequency: holidays/special occasions only Alcohol type: wine Drug use: Never Substance use type: does not use Do you feel safe at home: Yes Do you feel safe in your relationship?: Yes Meds Allergies and Home Medications Allergies Allergy/AdvReac Type Severity Reaction Status Date / Time morphine AdvReac Mild vomiting Verified 02/14/21 14:38 Home Medications Medication Instructions Recorded Confirmed Type acetaminophen [Tylenol Extra 500 mg PO PRN PRN 11/25/13 02/14/21 History Strength] metoprolol succinate 75 mg PO DAILY #45 tabcr 07/30/17 02/14/21 Rx nitroglycerin 0.4 mg SUBLINGUAL Q5 MIN PRN X3 07/30/17 02/14/21 Rx PRN #10 tab.subl aspirin [Aspir-Low] 81 mg PO DAILY 01/25/18 02/14/21 History albuterol sulfate 1.25 mg INHALATION Q4H PRN 01/14/19 02/14/21 History albuterol sulfate [ProAir HFA] 2 puff INHALATION QID PRN 01/14/19 02/14/21 History atorvastatin 20 mg PO DAILY 02/01/19 02/14/21 History losartan 50 mg PO DAILY 02/01/19 02/14/21 History budesonide-formoterol [Symbicort] 1 puff INHALATION BID 02/14/21 02/14/21 History tiotropium bromide [Spiriva with 1 cap INHALATION DAILY 02/14/21 02/14/21 History HandiHaler] Exam Narrative Exam Narrative: General: Pleasant frail elderly female who appears to be relatively comfortable in bed, A&Ox3, no dyspnea/tachypnea/cyanosis while talking to me in complete sentences with O2 sats of 88% Neuro: A&Ox3, no focal deficits Psych: appropriate speech pattern/content Skin: visible skin intact HEENT: Atraumatic, normocephalic, EOMI, dry MM, clear oropharynx, no submandibular or cervical lymphadenopathy, no goiter or JVD Heart: RRR, no m/r/g Lungs: CTAB anteriorly Abdomen: soft, nontender, nondistended Extremities: externally rotated and shortened LLE; no visible hematoma in the position the patient was examined. Results Imaging Additional studies: XR L femur: Left subcapital femoral neck fracture. XR pelvis: 1. Left subcapital femoral neck fracture. 2. Chronic degenerative changes of the lumbosacral spine. EKG: HR 81, NSR, no acute ischemia, nonspecific ST-T changes laterally. Labs Result diagrams: 02/14/21 14:41 02/14/21 14:41 Labs: Laboratory Results - last 24 hr 02/14/21 02/14/21 14:41 14:41 WBC 11.24 H RBC 4.01 Hgb 13.5 Hct 38.4 MCV 95.8 H MCH 33.7 H MCHC 35.2 RDW 12.0 Plt Count 261 MPV 9.4 Immature Gran % 0.6 Neutrophils % 62.3 Lymphocytes % 22.1 Monocytes % 9.1 Eosinophils % 4.9 Basophils % 1.0 Nucleated RBC % 0 Absolute Neutrophils 7.00 H Absolute Lymphocytes 2.48 Absolute Monocytes 1.02 H Absolute Eosinophils 0.55 Absolute Basophils 0.11 Sodium 139 Potassium 3.4 L Chloride 104 Carbon Dioxide 26.2 Anion Gap 8.8 BUN 17 Creatinine 0.8 Estimated GFR/1.73 m2 >= 60.00 Glucose 103 Calcium 8.8 Total Bilirubin 0.3 AST 18 ALT 24 Alkaline Phosphatase 70 Total Protein 6.5 Albumin 3.2 L Last Vital Signs Temp 36.7 C 02/14/21 14:30 Pulse 82 02/14/21 15:46 Resp 15 02/14/21 15:50 BP 143/91 H 02/14/21 15:46 Pulse Ox 96 02/14/21 15:50 COVID-19 Screening Have you, or household traveled for leisure in last 14 days?: No Had IN PERSON contact w/suspected or confirmed C-19 person: No
--- NOTE | 2021-02-14 17:17 | W.ANESNERVE ---
Nerve Block Single Injection Procedure Date and Time Date Performed: 02/14/21 Procedure Start: 17:02 Location Where Procedure Performed Procedure Location: Emergency Department Reason Performed: Acute Pain Management Pain Diagnosis: Hip Pain (fall with left hip fracture associated with significant pain, was requested by ED to place block to aid in pt comfort and minimize the need to opioid medications. ) Requesting Provider: chris Timeout Performed Timeout Performed: Yes Monitoring Used ECG, Blood Pressure and SpO2 Sterility Sterility: Hand Hygiene, Surgical Cap, Surgical Mask, Sterile Gloves and Chlorhexidine Sedation Given During Procedure Sedation Given (Indicate Dose Given): No Sedation given Patient Mental Status Patient Mental Status: Awake Nerve Block 1st Nerve Block: Laterality: Left Block Type: PRASHANT Needle / Catheter Used: 100mm SonoPlex II Local Anesthetic Bolus (Indicate Dose Given): Lidocaine used for local infiltration of skin, Injected in 3-5ml increments after negative blood aspiration and Bupivacaine 0.5% with Epinephrine (1:200,000) Additives (Indicate Dose Given): Decadron (4 mg) Ultrasound: Sterile probe cover and gel used Ultrasound Image Saved?: Yes Nerve Stimulator: Not Used Paresthesia: None Procedure Tolerated: No Complications Procedure Outcome: Successful Performed By: Aakash Vila
--- NOTE | 2021-02-14 17:21 | W.ANESPRE ---
General Info Date of Service Date Performed: 02/15/21 Height: 5 ft 2 in Weight: 55.1 kg Body Mass Index (BMI): 22.2 Meds Allergies and Home Medications Allergies Allergy/AdvReac Type Severity Reaction Status Date / Time morphine AdvReac Mild vomiting Verified 02/14/21 14:38 Home Medication Medication Instructions Recorded acetaminophen [Tylenol Extra 500 mg PO PRN PRN 11/25/13 Strength] metoprolol succinate 75 mg PO DAILY #45 tabcr 07/30/17 nitroglycerin 0.4 mg SUBLINGUAL Q5 MIN PRN X3 07/30/17 PRN #10 tab.subl aspirin [Aspir-Low] 81 mg PO DAILY 01/25/18 albuterol sulfate 1.25 mg INHALATION Q4H PRN 01/14/19 albuterol sulfate [ProAir HFA] 2 puff INHALATION QID PRN 01/14/19 atorvastatin 20 mg PO DAILY 02/01/19 losartan 50 mg PO DAILY 02/01/19 budesonide-formoterol [Symbicort] 1 puff INHALATION BID 02/14/21 lorazepam 0.25 mg PO HS 02/14/21 tiotropium bromide [Spiriva with 1 cap INHALATION DAILY 02/14/21 HandiHaler] Current Visit Medications: Current Medications Generic Name Dose Route Start Last Admin Trade Name Freq PRN Reason Stop Dose Admin Al Hydrox/Mg Hydrox/Simethicone 30 ml 02/14/21 16:34 Mylanta Suspension 30 Ml Cup PO Q2H PRN PRN Aspirin 81 mg 02/15/21 08:30 Aspirin E.C. 81 Mg Tabec PO DAILY [facility] Atorvastatin Calcium 20 mg 02/15/21 08:30 Atorvastatin 20 Mg Tab PO DAILY ZI Dimethicone/Zinc Oxide 0 gm 02/14/21 16:31 Isaac Protect Cream 142 Gm Tube TP PRN PRN Docusate Sodium 100 mg 02/14/21 20:00 Docusate Sodium 100 Mg Cap PO BID ZI Heparin Sodium (Porcine) 5,000 units 02/14/21 16:45 Heparin 5,000 Units/Ml Vial SC 02/14/21 23:59 Q8H ZI Hydromorphone HCl 0.5 mg 02/14/21 16:37 Hydromorphone 2 Mg/Ml Vial IVP Q4H PRN PRN Sodium Chloride 500 mls @ 0 mls/hr 02/14/21 16:31 Saline 500ml Bag IV PRN PRN As Directed Potassium Chloride/Sodium Chloride 1,000 mls @ 100 mls/hr 02/14/21 16:45 Kcl 40 Meq/Ns IV INFUSION [facility] Acetaminophen 1,000 mg in 100 mls @ 400 mls/hr 02/14/21 16:45 Ofirmev IVPB Q8H [facility] IV Miscellaneous Supplies 1 each 02/14/21 16:45 Iv Access IV DIRECTED [facility] Ketorolac Tromethamine 30 mg 02/14/21 16:36 Ketorolac 30 Mg/Ml Vial IVP 02/19/21 16:35 Q6H PRN PRN Losartan Potassium 50 mg 02/15/21 08:30 Losartan 25 Mg Tab PO DAILY [facility] Magnesium Hydroxide 30 ml 02/14/21 16:34 Milk Of Magnesia 30 Ml Cup PO DAILY PRN PRN Metoprolol Succinate 75 mg 02/15/21 08:30 Metoprolol Cr 50 Mg Tabcr PO DAILY [facility] Nicotine 30 cartridge 02/14/21 16:59 Nicotine 10 Mg/Cartridge 30 Cart/Pkg IH Q3H PRN PRN Nitroglycerin 0.4 mg 02/14/21 16:37 Nitroglycerin 0.4 Mg Tab SL Q5 MIN PRN X3 PRN Non-Formulary Medication 1.25 mg 02/14/21 16:37 Albuterol Sulfate IH Q4H PRN Non-Formulary Medication 1 puff 02/14/21 20:00 Budesonide-Formoterol IH BID [facility] Non-Formulary Medication 1 cap 02/15/21 08:30 Tiotropium Carson IH DAILY [facility] Ondansetron HCl 4 mg 02/14/21 16:36 Ondansetron 4 Mg/2 Ml Vial IVP Q6H PRN PRN Polyethylene Glycol 17 gm 02/14/21 16:34 Polyethylene Glycol 3350 17 Gm Packet PO DAILY PRN PRN Constipation Sodium Chloride 0 ml 02/14/21 16:31 Normal Saline Flush 10 Ml Syr IVP PRN PRN PFSH Active Problems Active Problems: Problem Status Onset Code Hypokalemia E87.6 COPD (chronic obstructive pulmonary disease) J44.9 Discharge planning issues Z02.9 DVT prophylaxis Z29.9 Dizziness R42 Closed fracture of neck of left femur S72.002A Recurrent pancreatitis 11/17/14 K86.1 Tobacco use Z72.0 Osteopenia M85.80 Migraine headache G43.909 History of Surgical Procedure Z98.89 Insomnia G47.00 Paroxysmal atrial fibrillation I48.0 Chest pain R07.9 Medical History Medical History (Updated 02/15/21 @ 09:57 by Marlen Kessler MD) Atrial fibrillation lone Afib, on asa COPD (chronic obstructive pulmonary disease) Hyperlipidemia Hypertension Pancreatitis Tobacco abuse Vertigo Surgical History Surgical History H/O bladder repair surgery H/O section History of bilateral tubal ligation History of hysterectomy History of tonsillectomy Trigger Finger release (11/12/13) R Thumb Tobacco Smoking/Tobacco Use Status: Current-Occasional Tobacco Type: cigarettes Tobacco: How many years used: 58 Quit Status: considering quitting Counseling given: provider counseling Alcohol Alcohol Intake: current Alcohol intake frequency: holidays/special occasions only Alcohol type: wine Substance Use Substance use: Never Substance use type: does not use Vital Signs and Lab Results Vital Signs Most Recent Vital Signs in EMR: Most Recent Vital Signs Temp Pulse Resp BP Pulse Ox 36.7 C 79 15 115/47 L 92 02/14/21 14:30 02/14/21 17:01 02/14/21 17:01 02/14/21 17:01 02/14/21 17:01 Lab Results Result Diagrams: 02/15/21 06:26 02/15/21 06:26 Blood Type / Crossmatch: No Data to Display Complete Blood Count: White Blood Count 11.89 10^3/uL (4.4-10.8) H 02/15/21 06:26 02/15/21 Red Blood Count 4.13 10^6/uL (3.93-5.22) 02/15/21 06:26 02/15/21 Hemoglobin 13.6 g/dL (11.2-15.7) 02/15/21 06:26 02/15/21 Hematocrit 40.5 % (36.0-46.0) 02/15/21 06:26 02/15/21 Platelet Count 243 10^3/uL (130-400) 02/15/21 06:26 02/15/21 Complete Metabolic Panel: Sodium Level 138 mmol/L (136-145) 02/15/21 06:02/15/21 Potassium Level 4.8 mmol/L (3.5-5.1) 02/15/21 06:02/15/21 Chloride Level 106 mmol/L (98-107) 02/15/21 06:02/15/21 Carbon Dioxide Level 22.8 mmol/L (21.0-32.0) 02/15/21 06:02/15/21 Blood Urea Nitrogen 15 mg/dL (7-18) 02/15/21 06:02/15/21 Creatinine 0.8 mg/dL (0.55-1.02) 02/15/21 06:02/15/21 Magnesium Level 1.8 mg/dL (1.8-2.4) 02/15/21 06:02/15/21 Calcium Level 8.3 mg/dL (8.5-10.1) L 02/15/21 06:02/15/21 Albumin 3.2 g/dL (3.4-5.0) L 02/14/21 14:41 02/14/21 Glucose Level 131 mg/dL (74-106) H 02/15/21 06:02/15/21 C-Reactive Protein 1.71 mg/dL (0.0-0.3) H 04/08/14 06:12 04/08/14 Liver Function Panel: Alanine Aminotransferase (ALT/SGPT) 24 U/L (14-59) 02/14/21 14:41 02/14/21 Aspartate Amino Transf (AST/SGOT) 18 U/L (15-37) 02/14/21 14:41 02/14/21 Coagulation Panel: INR International Normalized Ratio 1.0 (0.9-1.1) 02/15/21 06:02/15/21 Prothrombin Time 10.3 sec (9.3-11.0) 02/15/21 06:02/15/21 Activated Partial Thromboplast Time 19.8 sec (21.0-31.4) L 02/01/19 12:15 02/01/19 D-Dimer 356 ng/mlFEU (<500) 02/01/19 12:15 02/01/19 Cardiac Panel: Troponin I < 0.05 ng/mL (<0.06) 02/14/21 14:41 02/14/21 UP-Cys-M-Type Natriuretic Peptide 861 pg/mL (-299) H 08/09/17 22:10 08/09/17 Creatine Kinase 182 U/L (26-192) 12/16/20 14:35 12/16/20 Arterial Blood Gas: No Data to Display Venous Blood Gas: No Data to Display Pancreas Panel: Amylase Level 239 U/L (25-115) H 11/17/14 14:51 11/17/14 Lipase 927 U/L (73-393) H 11/17/14 14:51 11/17/14 Thyroid Panel: Thyroid Stimulating Hormone (TSH) 2.27 uIU/mL (0.358-3.74) 02/01/19 12:15 02/01/19 Infectious Disease: Coronavirus (COVID-19)(PCR) Negative (Negative) 02/14/21 17:15 02/14/21 Coronavirus 2019 Source Nasopharyx 02/14/21 17:15 02/14/21 Blood Cultures: No Data to Display Toxicology Panel: No Data to Display Imaging and Studies Imaging and Studies EKG Summary:: 02/14/21: normal sinus, probable LAE. Stress Test Summary:: 08/2017: no myocardial defects noted. LVEF 75% Echocardiogram Summary:: 12/2017: no effusion, LVEF 68%. no hemodynamicly significant valve lesion. 08/2017: LVEF 65-70%, normal RVFXN, pericardial effusion was noted but no signs of tamponade. 07/26: LVEF 60-65%, mild- mod AR. Cardiac Catheterization Summary:: 08/2017: Pulmonary Function Test Summary:: 07/2018: mild obstructive dz with significant bronchodilator response. mild diffusion defect. Anesthesia Assessment and Plan Anesthesia History Personal History: No History of Anesthesia Complications Family History: No Family History of Anesthesia Complications Exercise Tolerance Exercise Tolerance: Metabolic Equivalents>4 Cardiac & Pulmonary Exam Cardiac Exam: Normal S1/S2 Heart Sounds Pulmonary Exam: Clear Bilateral Breath Sounds Airway Exam Known Difficult Airway: No Mallampati Class: 2 Mouth Opening: Normal (> 3cm) Thyromental Distance: Less than 3 cm Neck Range of Motion: Full ROM Neck Circumference: Normal Teeth Condition: Removable Dentures/Plates Lower and Edentulous ASA Classification ASA Score: ASA 3 Emergency Case?: Yes NPO Status NPO Status: NPO Clears >2 hours, Solids >8 hours Anesthesia Plan Anesthesia Technique: General Anesthesia Airway Planned: Natural Airway Monitors Used: Standard Monitors Preoperative Comments:: 75 yo who fell yesterday when she got dizzy trying to remove a wasps nest. She had immediate pain to her left hip and was brought to the ED via EMS. in route she was given fentanyl which made her nauseated. Her most recent ECHO in our system shows a pericardial effusion. This was secondary to her being started on apixaban for PAF. A pericardial pigtail was placed, and since stopping the apixaban she has no further issues. She also has not used her PRN nitro. A follow up ECHO at [facility] shows resolution of the effusion Risks, benefits, and alternatives of GA vs spinal discussed. She is leaning towards GA.
[2021-02-14 17:29] LABS: Magnesium 1.9 mg/dL (1.8-2.4); Troponin I < 0.05 ng/mL (<0.06)
--- NOTE | 2021-02-14 17:54 | DI.VRAD_ITS ---
PROCEDURE INFORMATION: Exam: XR Chest Exam date and time: 02/14/2021 5:43 PM Age: 75 years old Clinical indication: Other: Copd; Preop TECHNIQUE: Imaging protocol: XR of the chest. Views: 1 view. COMPARISON: CR XR CHEST 2V PA LATERAL 02/01/2019 12:46 PM FINDINGS: Lungs: The lungs appear hyperexpanded though unchanged. No new segmental or lobar consolidation is seen. Pleural spaces: Unremarkable. No pleural effusion. No pneumothorax. Heart/Mediastinum: Unremarkable. No cardiomegaly. Vasculature: The aorta demonstrates mild atherosclerotic calcification. Bones/joints: Unremarkable. IMPRESSION: Hyperinflation consistent with COPD. No acute abnormality. Dictated and Authenticated by: Ty Zelaya MD. Ordering:ALON Gee MD
[2021-02-14 18:09] LABS: COVID-19 PCR Negative (Negative)
[2021-02-14] MEDS: POTASSIUM CHLORIDE/0.9% NACL 1,000 ML 100 MEQ IV (18:58)
[2021-02-14] MEDS: Heparin 5,000 UNITS/ML VIAL 5000 UNITS SC (21:25)
[2021-02-14] MEDS: LORazepam 0.5 MG TAB 0.25 MG PO (21:25)
[2021-02-14] MEDS: Docusate Sodium 100 MG CAP PO (21:26)
[2021-02-14] MEDS: Budesonide/Formoterol 80/4.5 6.9 GM 60 PUFF INH IH (21:26)
[2021-02-14] MEDS: HYDROmorphone 2 MG/ML VIAL 0.5 MG IVP (21:41)
[2021-02-14] MEDS: Normal Saline Flush 10 ML SYR IVP (21:42)
[2021-02-15] VITALS (25 sets, daily range): BP systolic 100–178; BP diastolic 47–87; PULSE 64–90; RESP 15–28; TEMP 35.8–36.9; O2SAT 90–99; BMI 22.2
[2021-02-15] MEDS: POTASSIUM CHLORIDE/0.9% NACL 1,000 ML 100 MEQ IV (05:05)
[2021-02-15] MEDS: ACETAMINOPHEN 1,000 MG/100 ML BTL 400 MG IVPB ×3 (05:50→21:49)
[2021-02-15 07:11] LABS: Abs Immature Grans 0.06 10^3/uL (0.0-0.06); Absolute Eosinophil Count 0.01 10^3/uL (0.0-0.7); Absolute Lymphocyte Count 0.95 10^3/uL (1.2-3.4); Basophils % 0.3; Eosinophils % 0.1; HCT 40.5 % (36.0-46.0); HGB 13.6 g/dL (11.2-15.7); Immature Grans % 0.5; MCH 32.9 pg (27.0-33.0); MCHC 33.6 % (32.0-36.0); MCV 98.1 fL (80-95); MPV 9.8 fL (8.0-11.0); Monocytes % 4.5; Neutrophils % 86.6; Nucleated RBC 0 %; Platelet Count 243 10^3/uL (130-400); RBC 4.13 10^6/uL (3.93-5.22); RDW 12.2 % (11.7-14.6); RDW-SD 44.1 fL; WBC 11.89 10^3/uL (4.4-10.8)
[2021-02-15 07:16] LABS: Absolute Basophil Count 0.04 10^3/uL (0.0-0.2); Absolute Monocyte Count 0.54 10^3/uL (0.1-0.8)
[2021-02-15 07:27] LABS: Prothrombin Time 10.3 sec (9.3-11.0)
[2021-02-15 07:35] LABS: Anion Gap 9.2 mmol/L (3-11); BUN 15 mg/dL (7-18); CO2 22.8 mmol/L (21.0-32.0); CREATININE 0.8 mg/dL (0.55-1.02); Calcium 8.3 mg/dL (8.5-10.1); Chloride 106 mmol/L (98-107); Glucose 131 mg/dL (74-106); Magnesium 1.8 mg/dL (1.8-2.4); Potassium 4.8 mmol/L (3.5-5.1); Sodium 138 mmol/L (136-145)
[2021-02-15] MEDS: Budesonide/Formoterol 80/4.5 6.9 GM 60 PUFF INH IH ×2 (07:51→19:55)
--- NOTE | 2021-02-15 08:14 | PDOC.CMIN ---
- If Service Date Differs Date of service: 02/15/21 Time of Service: 08:14 Care Management Initial Assess REASON FOR HOSPITALIZATION:: Acute traumatic left subcapital femoral neck fracture. PAST MEDICAL HISTORY/PAST SURGICAL HISTORY:: Medical History: Atrial fibrillation - lone Afib, on asa, COPD (chronic obstructive pulmonary disease), Hyperlipidemia, Hypertension, Pancreatitis, Tobacco abuse, and Vertigo. Surgical History: H/O bladder repair surgery, H/O section, History of bilateral tubal ligation, History of hysterectomy, History of tonsillectomy, and Trigger Finger release (11/12/13) - R Thumb. PREVIOUS FUNCTIONAL STATUS/SOCIAL/FAMILY SUPPORTS:: Ruby is a 75 year old woman who lives alone in her own home in [place]. She has 3 adult children, all of whom live locally and are supportive of her. 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 She occupies her time with sewing, doing puzzles, yardwork, and caring for her home. Ruby drives and is independent at baseline. CURRENT FUNCTIONAL STATUS:: Ruby is sitting up in bed, awaiting surgery, when CM comes to meet with her. She reports she is having a lot of pain. She shares her line dancing and exercise groups have been on hold for the past year due to Covid and these are restarting in just a few weeks. She was really looking forward to line dancing and exercising again and is disappointed that she won't be able to. CM will continue to follow. ADVANCE DIRECTIVES:: None on file, but accepts an Advance Directives to take home and review. Has patient been provided with info about the portal/API?: Yes Did the patient sign up for the portal?: No CODE STATUS:: Full Code INSURANCE COVERAGE / FINANCIAL ISSUES:: [employer] [facility] PPO. CM provides her with a Patient Assistance Application. CURRENT HOME/COMMUNITY SERVICES/EQUIPMENT:: No home/community services. Ruby has a nebulizer at home. PRIMARY CARE PHYSICIAN:: Chari Abdullahi POTENTIAL DISCHARGE NEEDS:: Follow up appointments with PCP and surgeon. May also require new Home Health PT/OT services. PATIENT/FAMILY EDUCATION NEEDS:: Discharge instructions, limitations, follow up plan of care, including Ask Me Three and self-management. ANTICIPATED BARRIERS TO DISCHARGE:: None anticipated at this time. TRANSPORTATION:: Via private vehicle with family. PLAN:: Anticipate Ruby will be discharged home when medically cleared by provider. PT will evaluate whether she needs new Home Health PT/OT while she is recuperating from surgery at home. She will be driven home by family via private vehicle when ready. CM will continue to support Ruby and discharge planning needs.
[2021-02-15] MEDS: Metoprolol CR 50 MG TABCR 75 MG PO (08:30)
[2021-02-15] MEDS: Losartan 50 MG TAB PO (08:30)
--- NOTE | 2021-02-15 09:52 | W.PM.PROGNOT ---
Date of Service Date of service: 02/15/21 Time of Service: 08:20 Assessment and Plan Assessment and plan (1) Closed fracture of neck of left femur: Status: Acute Assessment and plan: Medically cleared for OR today. Follow up vitamin D level (pending). IS. Bowel regimen. PT when Ok with surgery. (2) Dizziness: Status: Resolved Assessment and plan: Likely positional due to vertigo, which the patient has a history of. No longer an issue. Troponins negative. Tele d/c'ed. (3) COPD (chronic obstructive pulmonary disease): Status: Chronic Assessment and plan: CXR negative and not clinically in acute exacerbation. COVID-19 negative. O2 requirement could be due to narcotic medications, atelectasis, or, in fact, baseline. Continue home symbicort and prn albuterol. IS. The patient might have to be on O2 on discharge - will need ambulatory pulse ox check. (4) Osteopenia: Status: Chronic Assessment and plan: Await vitamin D level (5) Paroxysmal atrial fibrillation: Status: Resolved Assessment and plan: In fact, lone afib. Continue asa. Tele d/c'ed. (6) Tobacco use: Status: Chronic Assessment and plan: Provide nicotine replacement Advised to quit and of effects on fracture healing. (7) Hypokalemia: Status: Resolved Assessment and plan: D/c K in MIVF. (8) DVT prophylaxis: Status: Acute Assessment and plan: SCDs until after surgery (9) Discharge planning issues: Status: Acute Assessment and plan: Full code Continues to require hospitalization. Subjective Subjective Interval history since last seen: Ms Morel did not have any arrhythmic events on tele. She has not had any dizziness or nausea. NO chest pain or shortness of breath. Her L hip pain is controlled. She did require 1-2 L with O2 sats dipping to 88%. She is expected to undergo L hip surgery today. Exam Narrative Exam Narrative: General: Pleasant elderly female, appears comfortable in bed, A&Ox3 HEENT: EOMI, MMM Heart: RRR, no m/r/g Lungs: CTAB Abdomen: soft, nontender, nondistended Extremities: LLE externally rotated and shortened Objective Last Vital Signs Temp 36.2 C L 02/15/21 08:15 Pulse 66 02/15/21 08:15 Resp 18 02/15/21 08:15 BP 156/68 H 02/15/21 08:15 Pulse Ox 93 02/15/21 08:34 Laboratory Results - last 24 hr 02/14/21 02/14/21 02/14/21 14:41 14:41 14:41 WBC 11.24 H RBC 4.01 Hgb 13.5 Hct 38.4 MCV 95.8 H MCH 33.7 H MCHC 35.2 RDW 12.0 Plt Count 261 MPV 9.4 Immature Gran % 0.6 Neutrophils % 62.3 Lymphocytes % 22.1 Monocytes % 9.1 Eosinophils % 4.9 Basophils % 1.0 Nucleated RBC % 0 Absolute Neutrophils 7.00 H Absolute Lymphocytes 2.48 Absolute Monocytes 1.02 H Absolute Eosinophils 0.55 Absolute Basophils 0.11 PT INR Sodium 139 Potassium 3.4 L Chloride 104 Carbon Dioxide 26.2 Anion Gap 8.8 BUN 17 Creatinine 0.8 Estimated GFR/1.73 m2 >= 60.00 Glucose 103 Calcium 8.8 Magnesium 1.9 Total Bilirubin 0.3 AST 18 ALT 24 Alkaline Phosphatase 70 Troponin I < 0.05 Total Protein 6.5 Albumin 3.2 L COVID-19 Source SARS-CoV-2 (PCR) 02/14/21 02/15/21 02/15/21 17:15 06:26 06:26 WBC 11.89 H RBC 4.13 Hgb 13.6 Hct 40.5 MCV 98.1 H MCH 32.9 MCHC 33.6 RDW 12.2 Plt Count 243 MPV 9.8 Immature Gran % 0.5 Neutrophils % 86.6 Lymphocytes % 8.0 Monocytes % 4.5 Eosinophils % 0.1 Basophils % 0.3 Nucleated RBC % 0 Absolute Neutrophils 10.30 H Absolute Lymphocytes 0.95 L Absolute Monocytes 0.54 Absolute Eosinophils 0.01 Absolute Basophils 0.04 PT INR Sodium 138 Potassium 4.8 D Chloride 106 Carbon Dioxide 22.8 Anion Gap 9.2 BUN 15 Creatinine 0.8 Estimated GFR/1.73 m2 >= 60.00 Glucose 131 H Calcium 8.3 L Magnesium 1.8 Total Bilirubin AST ALT Alkaline Phosphatase Troponin I Total Protein Albumin COVID-19 Source Nasopharyx SARS-CoV-2 (PCR) Negative 02/15/21 06:26 WBC RBC Hgb Hct MCV MCH MCHC RDW Plt Count MPV Immature Gran % Neutrophils % Lymphocytes % Monocytes % Eosinophils % Basophils % Nucleated RBC % Absolute Neutrophils Absolute Lymphocytes Absolute Monocytes Absolute Eosinophils Absolute Basophils PT 10.3 INR 1.0 Sodium Potassium Chloride Carbon Dioxide Anion Gap BUN Creatinine Estimated GFR/1.73 m2 Glucose Calcium Magnesium Total Bilirubin AST ALT Alkaline Phosphatase Troponin I Total Protein Albumin COVID-19 Source SARS-CoV-2 (PCR)
[2021-02-15] MEDS: Normal Saline 1,000 ML 100 ML IV (10:16)
--- NOTE | 2021-02-15 10:48 | PHA.REVIEW ---
Pharmacy Admission Review - Admission Clinical Review (Last Updated 02/14/21 @ 17:11 by Marlen Kessler MD) Discharge planning issues (Acute) DVT prophylaxis (Acute) Closed fracture of neck of left femur (Acute) morphine Adverse Reaction (Mild, Verified 02/14/21 14:38) vomiting Height 5 ft 2 in Weight 53.1 kg - Renal Dosing Renal Dosing: BUN 15 mg/dL (7-18) 02/15/21 06:26 Creatinine 0.8 mg/dL (0.55-1.02) 02/15/21 06:26 Medications needing adjustments: Reviewed (crcl ~50ml/min) - Anticoagulation Anticoagulation: Hgb 13.6 g/dL (11.2-15.7) 02/15/21 06:26 Hct 40.5 % (36.0-46.0) 02/15/21 06:26 Plt Count 243 10^3/uL (130-400) 02/15/21 06:26 INR 1.0 (0.9-1.1) 02/15/21 06:26 Creatinine 0.8 mg/dL (0.55-1.02) 02/15/21 06:26 DVT Prohphylaxis: N/A (expected surgery today) Therapeutic Anticoagulation: N/A - Relevant Labs Sodium 138 mmol/L (136-145) 02/15/21 06:26 Potassium 4.8 mmol/L (3.5-5.1) D 02/15/21 06:26 Chloride 106 mmol/L (98-107) 02/15/21 06:26 Magnesium 1.8 mg/dL (1.8-2.4) 02/15/21 06:26 Electrolytes, C-Reactive P, ESR: Reviewed - DM Control DM Control: Glucose 131 mg/dL (74-106) H 02/15/21 06:26 - Heart Failure/CA Heart Failure/CA: Troponin I < 0.05 ng/mL (<0.06) 02/14/21 14:41 - BP Control BP Control: Blood Pressure 156/68 Blood Pressure 169/75 Blood Pressure 147/73 - Qtc Review If Elevated: N/A (428) - IV to PO Switch IV Medications: Reviewed - Home Meds Home Med List reviewed: Intervened (made provider aware paroxetine was not ordered and last filled 12/28.) - Current meds Current Medication Order Review: Reviewed (surgery planned for today)
[2021-02-15] MEDS: Ketorolac 30 MG/ML VIAL 15 MG IVP (11:14)
[2021-02-15] MEDS: Normal Saline Flush 10 ML SYR IVP ×3 (11:14→18:53)
[2021-02-15] MEDS: HYDROmorphone 2 MG/ML VIAL 0.5 MG IVP (13:22)
[2021-02-15] MEDS: Lactated Ringers 1,000 ML 30 ML IV (15:12)
[2021-02-15] MEDS: Hydrogen Peroxide 3% 480 ML BTL (16:20)
[2021-02-15] MEDS: Tranexamic Acid 1,000 MG/10 ML VIAL 1000 MG (16:32)
--- NOTE | 2021-02-15 17:17 | W.PM.OP ---
Date of service: 02/15/21 Time of Service: 17:18 Operative Note Operative Note DATE OF PROCEDURE: 02/15/21 POST-OP DIAGNOSIS: other Refer to Anesthesia Record
--- NOTE | 2021-02-15 17:25 | DI.RAD_ITS ---
Exam(s) XR PELVIS AP EXAM: XR PELVIS AP CLINICAL HISTORY: check L hip in RR. TECHNIQUE: 2D digital imaging was performed. COMPARISON: CR,XR XR PELVIS AP from 02/14/2021 FINDINGS: Postop AP view of the pelvis reveals satisfactory position of the newly placed left hip prosthesis ev ident on this single view study. No obvious fracture evident on this single view study. No osseous lesions. IMPRESSION: DATA REPOSITORY: RADIATION DOSE DELIVERED:
--- NOTE | 2021-02-15 17:59 | RESPIRATORY ---
Had a discussion with Patient about home oxygen as she is currently requiring 1lpm. Patient states that she does not currently have home oxygen. Patient was trialled on room air and initially was 94%, but eventual de-saturated to 87% RA at rest. Patient was placed back on oxygen and will be trialled at a latter date.
[2021-02-15] MEDS: Ketorolac 15 MG/ML VIAL IVP (18:53)
--- NOTE | 2021-02-15 19:07 | W.ANESPOSTOP ---
Postoperative Evaluation Date, Time and Location Date Performed: 02/15/21 Time Performed: 18:00 Patient Location: PACU Vital Signs Most Recent Imported Vital Signs: Most Recent Vital Signs Temp Pulse Resp BP Pulse Ox 36.2 C L 85 20 178/65 H 98 02/15/21 18:30 02/15/21 18:30 02/15/21 18:30 02/15/21 18:30 02/15/21 18:30 Pain Score Most Recent Pain Score: Most Recent Pain Score Pain Level [Left Hip] 3 02/14/21 21:59 Pain Level 3 02/15/21 18:53 Assessment Mental Status: Arousable with meaningful communication Airway and Respiratory Function: Patent airway with normal (patient baseline) respiratory exam Cardiovascular Function: Hemodynamically Stable Hydration Status: Adequately Hydrated Nausea & Vomiting: No Nausea or Vomiting Pain: Pain is tolerable/mild (<5/10) Peripheral Nerve Block: Patient did not receive a nerve block
[2021-02-15] MEDS: Docusate Sodium 100 MG CAP PO (19:55)
[2021-02-15] MEDS: LORazepam 0.5 MG TAB 0.25 MG PO (19:55)
[2021-02-15] MEDS: ceFAZolin 1 GM/50 ML BAG IVPB (22:12)
[2021-02-16] VITALS (10 sets, daily range): BP systolic 115–172; BP diastolic 55–72; PULSE 66–80; RESP 17–20; TEMP 36.3–36.9; O2SAT 88–95
[2021-02-16] MEDS: Normal Saline 1,000 ML 100 ML IV ×2 (00:33→14:00)
[2021-02-16] MEDS: ceFAZolin 1 GM/50 ML BAG IVPB ×4 (04:19→21:40)
[2021-02-16 05:32] LABS: Vitamin D 25 Total 21.6 ng/mL (30-100)
[2021-02-16] MEDS: Ketorolac 15 MG/ML VIAL IVP ×3 (06:06→17:48)
[2021-02-16] MEDS: ACETAMINOPHEN 1,000 MG/100 ML BTL 400 MG IVPB (06:06)
[2021-02-16 06:49] LABS: Abs Immature Grans 0.13 10^3/uL (0.0-0.06); Absolute Basophil Count 0.04 10^3/uL (0.0-0.2); Absolute Monocyte Count 1.71 10^3/uL (0.1-0.8); Basophils % 0.2; HCT 34.6 % (36.0-46.0); Immature Grans % 0.6; Lymphocytes % 6.5; MCH 33.6 pg (27.0-33.0); MCHC 34.7 % (32.0-36.0); MCV 96.9 fL (80-95); MPV 9.9 fL (8.0-11.0); Monocytes % 8.3; Neutrophils % 84.4; Nucleated RBC 0 %; Platelet Count 210 10^3/uL (130-400); RBC 3.57 10^6/uL (3.93-5.22); RDW 12.2 % (11.7-14.6); RDW-SD 43.7 fL; WBC 20.61 10^3/uL (4.4-10.8)
[2021-02-16 06:59] LABS: Absolute Lymphocyte Count 1.34 10^3/uL (1.2-3.4); Absolute Neutrophil Count 17.39 10^3/uL (1.2-6.7)
[2021-02-16 07:01] LABS: Anion Gap 9.1 mmol/L (3-11); BUN 15 mg/dL (7-18); CO2 23.9 mmol/L (21.0-32.0); CREATININE 0.8 mg/dL (0.55-1.02); Chloride 107 mmol/L (98-107); Glucose 123 mg/dL (74-106); Magnesium 1.8 mg/dL (1.8-2.4); Potassium 4.3 mmol/L (3.5-5.1); Sodium 140 mmol/L (136-145)
[2021-02-16] MEDS: Budesonide/Formoterol 80/4.5 6.9 GM 60 PUFF INH IH ×2 (07:46→21:40)
[2021-02-16 07:47] LABS: Diff Comment Agrees w/ Instrument; RBC Morphology Normal
[2021-02-16] MEDS: Metoprolol CR 50 MG TABCR 75 MG PO (08:33)
[2021-02-16] MEDS: HYDROmorphone 2 MG/ML VIAL 0.5 MG IVP ×2 (08:33→17:47)
[2021-02-16] MEDS: Atorvastatin 20 MG TAB PO (08:34)
[2021-02-16] MEDS: Aspirin E.C. 81 MG TABEC PO (08:34)
[2021-02-16] MEDS: Losartan 50 MG TAB PO (08:34)
[2021-02-16] MEDS: Docusate Sodium 100 MG CAP PO ×2 (08:34→21:39)
[2021-02-16] MEDS: Multivitamin w/Minerals TAB 1 TAB PO (08:34)
[2021-02-16] MEDS: Enoxaparin 40 MG/0.4 ML SYR SC (08:35)
--- NOTE | 2021-02-16 10:05 | PT.INIE ---
Date of service: 02/16/21 Time of Service: 09:23 PT Notes Visit Reasons: ACUTE TRAUMATIC LEFT SUBCAPITAL FEMORAL NECK FX Physical Therapy Inpatient Initial Evaluation Date: 02/16/21 Referring Doctor: Bubba Oliveira MD PT Orders: PT CONSULT: Left VENTURA Precautions: Fall. Standard. WBAT. VENTURA precautions. Patient Profile/Admitting Diagnosis: Ruby is a 75 yo female that sustained a fall on 02/14/21 while trying to clear a hornets nest overhead with a rake. She reports dizziness at times looking up and this caused her to fall. She sustained a left hip fracture and underwent left VENTURA on 02/15/21. She reports doing well this morning with minimal pain. PMHX: Medical History (Updated 02/14/21 @ 16:17 by Reji Colin DO) Atrial fibrillation COPD (chronic obstructive pulmonary disease) Pancreatitis Surgical History H/O bladder repair surgery H/O section History of bilateral tubal ligation History of hysterectomy History of tonsillectomy Trigger Finger release (11/12/13) R Thumb Social History/Home Situation: Lives alone, [address] with one rail. Daughters available to help. Independent at baseline without AD. Equipment Owned/DME: None Subjective: Patient and patient is agreeable to PT. Patient is sitting in recliner chair with legs elevated at time of consult. She also has IV in left arm and morris catheter in place. Objective: General Observation: Pleasant and not in distress. Mental Status: A&O x3 Pain: 0-1/10 in left hip ROM: Right Upper Extremity: Shoulder Flexion WFL. Shoulder abduction WFL. Elbow flexion WFL. Wrist flexion WFL. Opening and closing of hand WFL. Left Upper Extremity: Shoulder Flexion WFL. Shoulder abduction WFL. Elbow flexion WFL. Wrist flexion WFL. Opening and closing of hand WFL. Right Lower Extremity: Hip flexion WFL. Hip abduction WFL. Knee flexion WFL. Ankle dorsiflexion WFL. Ankle plantarflexion WFL. Left Lower Extremity: Hip flexion impaired. Hip abduction impaired. Knee flexion WFL. Ankle dorsiflexion WFL. Ankle plantarflexion WFL. Strength: Right Upper Extremity: Shoulder flexors 5/5. Shoulder abductors 5/5. Elbow flexors 5/5. Elbow extensors 5/5. Automatic Washer Mechanic strong. Left Upper Extremity: Shoulder flexors 5/5. Shoulder abductors 5/5. Elbow flexors 5/5. Elbow extensors 5/5. Automatic Washer Mechanic strong. Right Lower Extremity: Hip flexors 5/5. Hip abductors 5/5. Knee flexors 5/5. Knee extensors 5/5. Ankle dorsiflexors 5/5. Ankle plantarflexors 5/5. Left Lower Extremity: Hip flexors 2+/5. Hip abductors 2+/5. Knee flexors 4/5. Knee extensors 4/5. Ankle dorsiflexors 5/5. Ankle plantarflexors 5/5. Sensation: Intact as to pain and pressure on bilateral lower extremities. No reported sensory deficit between sides. Bed Mobility/Transfers: Supine to sit: Supervision on flat surface without use of rails Sit to supine: Supervision of flat surface without use of rails Sit to stand: Supervision with FWW Stand to sit: Supervision with FWW Gait: Ambulated 10 feet in room with FWW, SBA Balance: Static Sitting: Normal Dynamic Sitting: Normal Static Standing: Normal Dynamic Standing: Fair Special Tests: Mobility Limitations Standardized Measure [facility]-PAC 6 clicks Basic Mobility Inpatient Short Form: Raw Score: 19 CMS Score: 41.77% Informed Consent/Education: Patient instructed in purpose of PT consult and plan of care. Assessment: Ruby is demonstrating overall good mobility at post op day one following left VENTURA for fracture resulting from fall. She needed no assistance with mobility for transfers. Able to walk without increased pain in left hip using FWW. Impaired ROM and strength in left hip following surgery. Patient presents with clinical signs and symptoms consistent with current/admitting diagnoses that have resulted to mobility limitations, gait instability, generalized weakness, and impairment of motor control as demonstrated by the following impairment level findings: 1. Decreased strength to left hip major muscle groups 2. Impaired dynamic standing balance 3. Impaired activity tolerance 4. Limitation of joint range of motion in left hip Impairments are contributing to the following functional limitations: 1. Inability to safely ambulate without assistive device 2. Increase completion time for mobility ADL performance 3. Increased fall risk 4. Inability to negotiate steps alone safely Patient is assessed as a Low complexity based on the following: History: 75-year-old female with impairment level findings, functional limitations, and past medical history as indicated above Examination: Demonstrable impairment in strength, balance, and mobility level with underlying impairments and functional limitations as documented above Presentation: Stable Decision Making: Low complexity Goals: Goals x1 week 1. Supine-Sit independent 2. Sit-Supine independent 3. Sit-Stand independent 4. Stand-Sit independent 5. Bed-Chair independent 6. Chair-Bed independent 7. Independent gait on level surface with use of least restrictive device for at least 300 feet without report of pain nor dyspnea 8. Independent stair negotiation while holding onto single rail for at least 5 steps without report of pain nor dyspnea 9. Independent with home exercise program 10. Good static and dynamic standing balance/tolerance Plan of Care/Treatment Plan: 1-2x/day, 7 days/week x 1 week. Plan of care has been reviewed with the ACTING TEACHER providing the service under Physical Therapy direction. Initiate Physical Therapy intervention for strengthening, bed mobility, transfers, gait, stairs, balance training, use of assistive device. DISCHARGE RECOMMENDATIONS: Home with assist when medically ready for discharge TREATMENT CODE/TIME: 9:23-9:45 (22 minutes), [id number] Thank you for the opportunity to participate in the care of this patient. Niru Ivy, PT, DPT, OCS [facility] [place], [place]
--- NOTE | 2021-02-16 10:25 | W.NUTRFU ---
Date of service: 02/16/21 Time of Service: 10:26 Nutritional Follow up NOTE: 75 year old female admitted and s/p left hip repair s/p fall. PMH: HTN, HLD, osteopenia. BMI wnl. Following heart healthy diet and meeting 100% nutrient and fluid needs. Not considered at nutritional risk. Will continue to follow. Time Spent in Nutritional Counseling and Treatment: 0
--- NOTE | 2021-02-16 10:57 | PGE_ITS ---
Date of Service Date of service: 02/16/21 Time of Service: 10:57 Assessment and Plan Assessment and plan (1) Leukocytosis: Status: Acute Assessment and plan: no evidence of infection ? stress response will follow and continue to monitor for post operative infection (2) Vitamin D deficiency: Status: Acute Assessment and plan: will replete (3) Closed fracture of neck of left femur: Status: Acute Assessment and plan: POD #1, continue routine postoperative care. cough, deep breath, I/S bowel management pain management dressing per surgery discontinue morris catheter PT/OT (4) COPD (chronic obstructive pulmonary disease): Status: Chronic Assessment and plan: stable on room air continue home inhalers. will need ambulatory pulse oximetry test prior to discharge. (was hypoxic on admission but thought maybe d/t pain medication she received en route). (5) Hypokalemia: Status: Resolved Assessment and plan: repleted and stable. (6) Dizziness: Status: Resolved Assessment and plan: no reoccurrence since hospitalized fall precautions (7) DVT prophylaxis: Status: Acute Assessment and plan: teds, scds lovenox subcu daily (8) Discharge planning issues: Status: Acute Assessment and plan: anticipate a discharge to home when medically stable ' case management following, discussed with DR Kessler Subjective Subjective Patient reports: no new complaints, tolerating liquids well, flatus and afebrile Interval history since last seen: patient working with physical therapy and progressing well. pain is well managed. using her incentive spirometer. reports good appetite and fluid intake. no BM but passing flatus, no nausea or abdominal pain Exam Const General: cooperative, healthy appearing, comfortable and no acute distress Nutritional Appearance: average body habitus Orientation: alert, awake and oriented x3 [facility] Head: normal to inspection, normocephalic and atraumatic Face and sinus: normal facial exam Mouth: moist mucous membranes abnormal (slightly dry, no exudates) Resp Effort & Inspection: normal respiratory effort Auscultation: rales bilaterally at the base, no rhonchi and no wheezes Cardio Rate: regular rate Rhythm: regular rhythm GI Inspection: normal to inspection Palpation: soft and nontender Auscultation: normal bowel sounds Skin Lesions: lesion noted (left hip surgical dressing clean dry and intact, no surrounding erythema) Rashes: no rashes Neuro General: patient alert, patient awake, patient oriented x3 and no focal motor deficits Extrem General: normal to inspection, no pedal edema and no calf tenderness Psych Appearance: grossly normal Mental Status: mental status grossly normal Speech and Movement: speech and movement normal Mood: congruent mood Affect: normal affect Attitude: cooperative Objective Last Vital Signs Temp 36.3 C L 02/16/21 07:41 Pulse 66 02/16/21 07:41 Resp 20 02/16/21 07:41 BP 170/65 H 02/16/21 07:41 Pulse Ox 91 L 02/16/21 08:10 Laboratory Results - last 24 hr 02/15/21 02/16/21 02/16/21 06:26 06:35 06:35 WBC 20.61 H D RBC 3.57 L Hgb 12.0 Hct 34.6 L MCV 96.9 H MCH 33.6 H MCHC 34.7 RDW 12.2 Plt Count 210 MPV 9.9 Immature Gran % 0.6 Neutrophils % 84.4 Lymphocytes % 6.5 Monocytes % 8.3 Eosinophils % 0.0 Basophils % 0.2 Nucleated RBC % 0 Absolute Neutrophils 17.39 H Absolute Lymphocytes 1.34 Absolute Monocytes 1.71 H Absolute Eosinophils 0.00 Absolute Basophils 0.04 RBC Morphology Normal Sodium 140 Potassium 4.3 Chloride 107 Carbon Dioxide 23.9 Anion Gap 9.1 BUN 15 Creatinine 0.8 Estimated GFR/1.73 m2 >= 60.00 Glucose 123 H Calcium 8.0 L Magnesium 1.8 25-OH Vitamin D Total 21.6 L
--- NOTE | 2021-02-16 11:25 | PDOC.CMPRO ---
- If Service Date Differs Date of service: 02/16/21 Time of Service: 11:25 Care Management Progress Note S/O: Ruby was sitting up in bed when CM met with her. She reported that she is doing well, that her pain in controlled and that she is working with PT. She reported that her niece is bringing her a walker, but she is unsure if it is a FWW. If not, CM explained that one could be provided through [facility]. CM asked if Ruby would be interested in HH services, if indicated, which she stated that she feels that she has enough support from her local children, and won't need HH services. CM discussed Ruby's progress with PT, who stated that she will likely be cleared by PT for discharge tomorrow, with a recommendation of HH PT. CM will go over options with Ruby again tomorrow. CM will continue to follow. A: Ruby is a 75 year old female admitted to [facility] on 02/14/21 with acute traumatic left femoral neck fx. P: Anticipate Ruby will be discharged home when medically cleared by provider. PT will evaluate whether she needs new Home Health PT/OT while she is recuperating from surgery at home. She will be driven home by family via private vehicle when ready. CM will continue to support Ruby and discharge planning needs.
[2021-02-16] MEDS: Cholecalciferol (Vitamin D3) 1,000 UNIT TAB 1000 UNITS PO (11:54)
--- NOTE | 2021-02-16 12:20 | PT.INTREAT ---
Date of service: 02/16/21 Time of Service: 11:30 PT Notes Visit Reasons: ACUTE TRAUMATIC LEFT SUBCAPITAL FEMORAL NECK FX Inpatient Physical Therapy Treatment Note [facility] Date: 02/16/2021 PRECAUTIONS: Fall, WBAT L SUBJECTIVE: Ruby is pleasant and agreeable to participating in PT. She states that she is not having much pain. She reports that she lives alone but will have plenty of help when she returns home. OBJECTIVE: Educated and reviewed VENTURA precautions. PAIN: Patient c/o L hip pain with gait training and ther ex completion. BED MOBILITY/TRANSFERS Supine-sit: I with HOB flat Sit-supine: I with HOB flat Sit-stand: I Stand-sit: I GAIT Assistive Device: FWW B ax crutches Weight bearing: WBAT L Assist: SBA Distance: 50' x2 with FWW 10' with B ax crutches Deviation: Pain, patient did not like B ax crutches - did not feel supportive enough THEREX: Patient was instructed in a supine LE strengthening and stabilization program, as per flow sheet. She requires assist with SLR due to weakness and discomfort. STAIRS: Up/down 3x4 and 2x6 using B rails and a step-to pattern with supervision following instruction for appropriate sequence. ASSESSMENT: Patient tolerated session well, although with c/o L hip pain with gait training and ther ex. She was able to tolerate a progression in gait distance and in her ther ex program. PLAN: Continue with LE strengthening and gait and transfer training. TREATMENT CODE/TIME: 25 minutes; [id number], [id number] (11:30)
--- NOTE | 2021-02-16 14:34 | CHAPLAIN ---
Ruby had hip surgery. She was resting in bed and said she felt ok and was just getting ready for nap. She's been in touch with family by phone.
[2021-02-16] MEDS: Albuterol HFA 8 GM 60 PUFF INH IH (19:00)
[2021-02-16] MEDS: HYDROcodone 5/Acetaminophen 325 TAB PO (21:39)
[2021-02-16] MEDS: LORazepam 0.5 MG TAB 0.25 MG PO (21:39)
[2021-02-17] MEDS: Ketorolac 15 MG/ML VIAL IVP ×5 (00:13→23:29)
[2021-02-17] MEDS: Normal Saline 1,000 ML 100 ML IV ×2 (00:13→10:55)
[2021-02-17 03:14] VITALS: O2SAT 95
[2021-02-17] MEDS: ceFAZolin 1 GM/50 ML BAG IVPB (03:41)
[2021-02-17] MEDS: HYDROmorphone 2 MG/ML VIAL 0.5 MG IVP (06:06)
[2021-02-17 07:06] LABS: Abs Immature Grans 0.05 10^3/uL (0.0-0.06); Absolute Basophil Count 0.07 10^3/uL (0.0-0.2); Absolute Lymphocyte Count 1.79 10^3/uL (1.2-3.4); Absolute Neutrophil Count 8.17 10^3/uL (1.2-6.7); Basophils % 0.6; Eosinophils % 1.7; HCT 31.3 % (36.0-46.0); HGB 10.7 g/dL (11.2-15.7); Immature Grans % 0.4; Lymphocytes % 15.4; MCH 33.2 pg (27.0-33.0); MCHC 34.2 % (32.0-36.0); MCV 97.2 fL (80-95); Monocytes % 11.5; Neutrophils % 70.4; Nucleated RBC 0 %; Platelet Count 188 10^3/uL (130-400); RBC 3.22 10^6/uL (3.93-5.22); RDW 12.3 % (11.7-14.6); RDW-SD 43.8 fL; WBC 11.61 10^3/uL (4.4-10.8)
[2021-02-17 07:16] LABS: Absolute Monocyte Count 1.34 10^3/uL (0.1-0.8); Anion Gap 8.6 mmol/L (3-11); BUN 15 mg/dL (7-18); CO2 24.4 mmol/L (21.0-32.0); CREATININE 0.7 mg/dL (0.55-1.02); Calcium 7.7 mg/dL (8.5-10.1); Chloride 108 mmol/L (98-107); Glucose 102 mg/dL (74-106); Potassium 3.5 mmol/L (3.5-5.1); Sodium 141 mmol/L (136-145)
[2021-02-17 07:39] VITALS: BP 152/71; PULSE 95; RESP 17; TEMP 36.9; O2SAT 94
[2021-02-17] MEDS: Budesonide/Formoterol 80/4.5 6.9 GM 60 PUFF INH IH ×2 (08:05→20:04)
[2021-02-17] MEDS: Atorvastatin 20 MG TAB PO (08:19)
[2021-02-17] MEDS: Docusate Sodium 100 MG CAP PO ×2 (08:19→20:04)
[2021-02-17] MEDS: Enoxaparin 40 MG/0.4 ML SYR SC (08:19)
[2021-02-17] MEDS: Multivitamin w/Minerals TAB 1 TAB PO (08:19)
[2021-02-17] MEDS: Aspirin E.C. 81 MG TABEC PO (08:19)
[2021-02-17] MEDS: Metoprolol CR 50 MG TABCR 75 MG PO (08:20)
[2021-02-17] MEDS: Losartan 50 MG TAB PO (08:20)
--- NOTE | 2021-02-17 08:25 | PT.INTREAT ---
Date of service: 02/17/21 Time of Service: 07:40 PT Notes Visit Reasons: ACUTE TRAUMATIC LEFT SUBCAPITAL FEMORAL NECK FX Inpatient Physical Therapy Treatment Note [facility] Date: 02/17/2021 PRECAUTIONS: Fall, WBAT L SUBJECTIVE: Ruby reports that she is not having a good day so far, she reports her pain has significantly increased since yesterday. She is hesitant to participate in PT due to the pain in her L hip in a.m.. In p.m., patient reports that she is feeling much better. OBJECTIVE: Educated and reviewed VENTURA precautions. PAIN: Patient c/o L hip pain at rest and with ther ex completion, but reports decreasing pain with gait training. BED MOBILITY/TRANSFERS Supine-sit: I with HOB flat (with use of leg district medical examiner following instruction) Sit-supine: I with HOB flat Sit-stand: I Stand-sit: I GAIT Assistive Device: FWW Weight bearing: WBAT L Assist: S Distance: 80' in both a.m. and p.m. Deviation: Decreasing L LE pain THEREX: Patient was instructed in a long-sitting (in a.m.) and supine (in p.m.) LE strengthening and stabilization program, as per flow sheet. She was able to perform SLR x10 without assist. Ended with ice pack to L hip. ASSESSMENT: Patient tolerated a.m. session with complaints of L LE pain, although with reports of decreasing pain with gait training. She demonstrates independence with transfers and bed mobility at this time. PLAN: Continue with LE strengthening and gait training for improved mobility and activity tolerance. TREATMENT CODE/TIME: Session 1: 25 minutes; [id number], [id number] (07:40) Session 2: 30 minutes; [id number], [id number] (13:20)
--- NOTE | 2021-02-17 09:56 | PGE_ITS ---
Date of Service Date of service: 02/17/21 Time of Service: 09:56 Assessment and Plan Assessment and plan (1) Closed fracture of neck of left femur: Status: Acute Assessment and plan: Assessment: Stable post-op day #2 unipolar replacement L hip for femoral neck Fx. She needs to be fully independant getting out of bed before she can go home. She says she can stay with her s ister after discharge. Plan: D/C home when fully independent with transfers and ambulation. Should go home on aspirin 81mg BID for 30 days as DVT prophylaxis. May shower and get dressing wet. Leave dressing alone and let it come off by itself. Total hip precautions L. Follow up with at 10-14 days post-discharge. Subjective Subjective Interval history since last seen: She feels a little more sore today compared to yesterday. Exam Narrative Exam Narrative: Walked to PT room today. Still needs help to get out of bed. Afebrile, VSS. Hgb 10.7g Incision benign. Can actively dorsiflex L ankle. Heredia out and voiding. NVS intact L leg. Objective Last Vital Signs Temp 36.9 C 02/17/21 07:39 Pulse 95 H 02/17/21 07:39 Resp 17 02/17/21 07:39 BP 152/71 H 02/17/21 07:39 Pulse Ox 94 02/17/21 07:39 Laboratory Results - last 24 hr 02/17/21 02/17/21 06:35 06:35 WBC 11.61 H D RBC 3.22 L Hgb 10.7 L Hct 31.3 L MCV 97.2 H MCH 33.2 H MCHC 34.2 RDW 12.3 Plt Count 188 MPV 10.0 Immature Gran % 0.4 Neutrophils % 70.4 Lymphocytes % 15.4 Monocytes % 11.5 Eosinophils % 1.7 Basophils % 0.6 Nucleated RBC % 0 Absolute Neutrophils 8.17 H Absolute Lymphocytes 1.79 Absolute Monocytes 1.34 H Absolute Eosinophils 0.20 Absolute Basophils 0.07 Sodium 141 Potassium 3.5 Chloride 108 H Carbon Dioxide 24.4 Anion Gap 8.6 BUN 15 Creatinine 0.7 Estimated GFR/1.73 m2 >= 60.00 Glucose 102 Calcium 7.7 L
--- NOTE | 2021-02-17 10:09 | W.PM.PROGNOT ---
Date of Service Date of service: 02/16/21 Time of Service: 10:09 Assessment and Plan Assessment and plan (1) Closed fracture of neck of left femur: Status: Acute Assessment and plan: Assessment: Stable post-op day #1 unipolar replacement L hip for femoral neck fx. Plan: Mobilize with PT per protocol. Check hgb tomorrow. Subjective Subjective Patient reports: feels better and pain is less Exam Narrative Exam Narrative: Afebrile, VSS. Good I's and O's. Hgb 12.7g. NVS L leg is normal. Dressing dry. Breathing well. Objective Last Vital Signs Temp 36.9 C 02/17/21 07:39 Pulse 95 H 02/17/21 07:39 Resp 17 02/17/21 07:39 BP 152/71 H 02/17/21 07:39 Pulse Ox 94 02/17/21 07:39 Laboratory Results - last 24 hr 02/17/21 02/17/21 06:35 06:35 WBC 11.61 H D RBC 3.22 L Hgb 10.7 L Hct 31.3 L MCV 97.2 H MCH 33.2 H MCHC 34.2 RDW 12.3 Plt Count 188 MPV 10.0 Immature Gran % 0.4 Neutrophils % 70.4 Lymphocytes % 15.4 Monocytes % 11.5 Eosinophils % 1.7 Basophils % 0.6 Nucleated RBC % 0 Absolute Neutrophils 8.17 H Absolute Lymphocytes 1.79 Absolute Monocytes 1.34 H Absolute Eosinophils 0.20 Absolute Basophils 0.07 Sodium 141 Potassium 3.5 Chloride 108 H Carbon Dioxide 24.4 Anion Gap 8.6 BUN 15 Creatinine 0.7 Estimated GFR/1.73 m2 >= 60.00 Glucose 102 Calcium 7.7 L
--- NOTE | 2021-02-17 10:52 | W.PM.PROGNOT ---
Date of Service Date of service: 02/17/21 Time of Service: 10:52 Assessment and Plan Assessment and plan (1) Leukocytosis: Status: Acute Assessment and plan: no evidence of infection normalizing today ? stress response will follow and continue to monitor for post operative infection (2) Vitamin D deficiency: Status: Acute Assessment and plan: will replete (3) Closed fracture of neck of left femur: Status: Acute Assessment and plan: POD #2, continue routine postoperative care. cough, deep breath, I/S bowel management pain management dressing per surgery discontinue morris catheter PT/OT (4) COPD (chronic obstructive pulmonary disease): Status: Chronic Assessment and plan: continue home inhalers. will need ambulatory pulse oximetry test prior to discharge. (was hypoxic on admission but thought maybe d/t pain medication she received en route). (5) Hypokalemia: Status: Resolved Assessment and plan: K 3.5 today, mag 1.8, will given 20 meq now and tonight and recheck in am (6) Dizziness: Status: Resolved Assessment and plan: no reoccurrence since hospitalized fall precautions (7) DVT prophylaxis: Status: Acute Assessment and plan: teds, scds lovenox subcu daily will discharge home on aspirin 81 mg po bid for 30 days per orthopedics (8) Discharge planning issues: Status: Acute Assessment and plan: anticipate a discharge to home when medically stable ' case management following, discussed with DR Kessler Subjective Subjective Patient reports: tolerating liquids well, tolerating a regular diet, voiding w/o difficulty and afebrile Interval history since last seen: working with physical therapy, needing some assistance getting up but ambulating ok. pain worse this morning but better controlled this afternoon after scheduled toradol and apap and prn norco. Exam Const General: cooperative, healthy appearing, comfortable and no acute distress Nutritional Appearance: average body habitus Orientation: alert, awake and oriented x3 HENMT Head: normal to inspection, normocephalic and atraumatic Face and sinus: normal facial exam Mouth: moist mucous membranes abnormal (slightly dry, no exudates) Resp Effort & Inspection: normal respiratory effort Auscultation: rales bilaterally at the base, no rhonchi and no wheezes Cardio Rate: regular rate Rhythm: regular rhythm GI Inspection: normal to inspection Palpation: soft and nontender Auscultation: normal bowel sounds Skin Lesions: lesion noted (left hip surgical dressing clean dry and intact, no surrounding erythema) Rashes: no rashes Neuro General: patient alert, patient awake, patient oriented x3 and no focal motor deficits Extrem General: normal to inspection, no pedal edema and no calf tenderness Psych Appearance: grossly normal Mental Status: mental status grossly normal Speech and Movement: speech and movement normal Mood: congruent mood Affect: normal affect Attitude: cooperative Objective Last Vital Signs Temp 36.9 C 02/17/21 07:39 Pulse 95 H 02/17/21 07:39 Resp 17 02/17/21 07:39 BP 152/71 H 02/17/21 07:39 Pulse Ox 94 02/17/21 07:39 Laboratory Results - last 24 hr 02/17/21 02/17/21 06:35 06:35 WBC 11.61 H D RBC 3.22 L Hgb 10.7 L Hct 31.3 L MCV 97.2 H MCH 33.2 H MCHC 34.2 RDW 12.3 Plt Count 188 MPV 10.0 Immature Gran % 0.4 Neutrophils % 70.4 Lymphocytes % 15.4 Monocytes % 11.5 Eosinophils % 1.7 Basophils % 0.6 Nucleated RBC % 0 Absolute Neutrophils 8.17 H Absolute Lymphocytes 1.79 Absolute Monocytes 1.34 H Absolute Eosinophils 0.20 Absolute Basophils 0.07 Sodium 141 Potassium 3.5 Chloride 108 H Carbon Dioxide 24.4 Anion Gap 8.6 BUN 15 Creatinine 0.7 Estimated GFR/1.73 m2 >= 60.00 Glucose 102 Calcium 7.7 L
--- NOTE | 2021-02-17 10:56 | W.ORTHOCONSU ---
Date of service: 02/14/21 Time of Service: 16:56 History of Present Illness History of Present Illness Chief Complaint: L hip pain Narrative: Got dizzy reaching up to dislodge hornet's nest and fell to the ground landing on L side. Experienced severe pain. Was unable to get up and put weight on L leg. Was transported to ER where x-rays showed displaced L femoral neck Fx. Consults Consult date: 02/14/21 Requesting physician: Marlen Kessler Assessment and Plan Assessment and plan (1) Closed fracture of neck of left femur: Status: Acute Assessment and plan: Assessment: Displaced Fx L femoral neck. Recommend unipolar prosthetic replacement. Will need medical clearance first. Plan: If medically cleared, will take to OR tomorrow AM for unipolar replacement L hip. [facility] Medical History (Updated 02/16/21 @ 11:10 by Sona Macias NP) Atrial fibrillation lone Afib, on asa COPD (chronic obstructive pulmonary disease) Hyperlipidemia Hypertension Pancreatitis Tobacco abuse Vertigo Surgical History H/O bladder repair surgery H/O section History of bilateral tubal ligation History of hysterectomy History of tonsillectomy Trigger Finger release (11/12/13) R Thumb Family History (Updated 02/14/21 @ 16:59 by Marlen Kessler MD) Sister Heart disease Hypertension Sister Hypertension Brother Cancer lung cancer - associated with agent orange exposure Social History (Updated 02/14/21 @ 17:00 by Marlen Kessler MD) Smoking/Tobacco Use Status: Current-Occasional Tobacco Type: cigarettes Tobacco: How many years used: 58 Quit status: considering quitting Counseling given: provider counseling Smoking risk assessment performed?: Yes Alcohol Intake: current Alcohol Intake frequency: holidays/special occasions only Alcohol type: wine Drug use: Never Substance use type: does not use Do you feel safe at home: Yes Do you feel safe in your relationship?: Yes Exam Narrative Exam Narrative: L lower extremity is shortened and externally rotated. IR very painful as is flexion of L hip. No ankle swelling. Good circulation L foot. Can actively DF and PF L ankle. X-ray/AP pelvis: Displaced Fx L femoral neck, mid-cervical. Results Last Vital Signs Temp 36.9 C 02/17/21 07:39 Pulse 95 H 02/17/21 07:39 Resp 17 02/17/21 07:39 BP 152/71 H 02/17/21 07:39 Pulse Ox 94 02/17/21 07:39 Labs Result diagrams: 02/17/21 06:35 02/17/21 06:35 Labs: Laboratory Results - last 24 hr 02/17/21 02/17/21 06:35 06:35 WBC 11.61 H D RBC 3.22 L Hgb 10.7 L Hct 31.3 L MCV 97.2 H MCH 33.2 H MCHC 34.2 RDW 12.3 Plt Count 188 MPV 10.0 Immature Gran % 0.4 Neutrophils % 70.4 Lymphocytes % 15.4 Monocytes % 11.5 Eosinophils % 1.7 Basophils % 0.6 Nucleated RBC % 0 Absolute Neutrophils 8.17 H Absolute Lymphocytes 1.79 Absolute Monocytes 1.34 H Absolute Eosinophils 0.20 Absolute Basophils 0.07 Sodium 141 Potassium 3.5 Chloride 108 H Carbon Dioxide 24.4 Anion Gap 8.6 BUN 15 Creatinine 0.7 Estimated GFR/1.73 m2 >= 60.00 Glucose 102 Calcium 7.7 L
[2021-02-17] MEDS: HYDROcodone 5/Acetaminophen 325 TAB PO (12:11)
[2021-02-17] MEDS: Acetaminophen 325 MG TAB 650 MG PO ×2 (12:11→20:03)
[2021-02-17] MEDS: Milk of Magnesia 30 ML CUP PO (12:17)
[2021-02-17 15:26] VITALS: BP 125/63; PULSE 71; RESP 17; TEMP 36.9; O2SAT 94
[2021-02-17] MEDS: Potassium Chloride 20 MEQ TABCR PO ×2 (16:46→23:29)
[2021-02-17] MEDS: PARoxetine 20 MG TAB PO (16:46)
--- NOTE | 2021-02-17 17:23 | CMPROGNOTE_ITS ---
- If Service Date Differs Date of service: 02/17/21 Time of Service: 17:23 Care Management Progress Note S/O: Ruby was lying in bed when CM met with her. She was wincing in pain, and reported that she was in a lot of pain, and she already reported it to her RN. CM discussed her potential discharge tomorrow, if she continues to improve with PT and her pain is well controlled. CM asked if she would be interested in HH PT, as this is being recommended, and she was unable to answer due to the pain. CM will continue to follow. A: Ruby is a 75 year old female admitted to [facility] on 02/14/21 with acute traumatic left femoral neck fx. P: Anticipate Ruby will be discharged home when medically cleared by provider. PT has recommended HH PT. She will be driven home by family via private vehicle when ready. CM will continue to support Ruby and discharge planning needs.
[2021-02-17] MEDS: Calcium 600mg/Vit D 200U TAB 1 TAB PO (20:04)
[2021-02-17 20:08] VITALS: BP 129/54; PULSE 74; RESP 17; TEMP 36.3; O2SAT 96
[2021-02-17 21:50] VITALS: O2SAT 96
[2021-02-17] MEDS: LORazepam 0.5 MG TAB 0.25 MG PO (23:29)
[2021-02-17] MEDS: Normal Saline Flush 10 ML SYR IVP (23:30)
[2021-02-18 03:14] VITALS: O2SAT 96
[2021-02-18] MEDS: Ketorolac 15 MG/ML VIAL IVP ×2 (05:19→12:34)
[2021-02-18 07:43] LABS: Abs Immature Grans 0.06 10^3/uL (0.0-0.06); Absolute Basophil Count 0.09 10^3/uL (0.0-0.2); Absolute Eosinophil Count 0.56 10^3/uL (0.0-0.7); Absolute Lymphocyte Count 1.63 10^3/uL (1.2-3.4); Absolute Neutrophil Count 8.01 10^3/uL (1.2-6.7); Basophils % 0.8; Eosinophils % 4.9; HCT 31.2 % (36.0-46.0); HGB 10.7 g/dL (11.2-15.7); Immature Grans % 0.5; Lymphocytes % 14.4; MCH 33.3 pg (27.0-33.0); MCHC 34.3 % (32.0-36.0); MCV 97.2 fL (80-95); Monocytes % 8.8; Neutrophils % 70.6; Nucleated RBC 0 %; Platelet Count 206 10^3/uL (130-400); RBC 3.21 10^6/uL (3.93-5.22); RDW-SD 42.4 fL; WBC 11.35 10^3/uL (4.4-10.8)
[2021-02-18 07:45] LABS: BUN 14 mg/dL (7-18); CREATININE 0.7 mg/dL (0.55-1.02); Calcium 7.9 mg/dL (8.5-10.1); Chloride 106 mmol/L (98-107); Glucose 102 mg/dL (74-106); Potassium 4.1 mmol/L (3.5-5.1); Sodium 140 mmol/L (136-145)
[2021-02-18] MEDS: Multivitamin w/Minerals TAB 1 TAB PO (07:45)
[2021-02-18 07:49] VITALS: BP 159/77; PULSE 99; RESP 18; TEMP 36.6; O2SAT 92
[2021-02-18] MEDS: Acetaminophen 325 MG TAB 650 MG PO (08:03)
[2021-02-18] MEDS: Metoprolol CR 50 MG TABCR 75 MG PO (08:03)
[2021-02-18] MEDS: Aspirin E.C. 81 MG TABEC PO (08:03)
[2021-02-18] MEDS: Calcium 600mg/Vit D 200U TAB 1 TAB PO (08:04)
[2021-02-18] MEDS: Docusate Sodium 100 MG CAP PO (08:04)
[2021-02-18] MEDS: Cholecalciferol (Vitamin D3) 400 UNIT TAB PO (08:04)
[2021-02-18] MEDS: Losartan 50 MG TAB PO (08:04)
[2021-02-18] MEDS: Atorvastatin 20 MG TAB PO (08:04)
[2021-02-18] MEDS: PARoxetine 20 MG TAB PO (08:05)
[2021-02-18] MEDS: Enoxaparin 40 MG/0.4 ML SYR SC (08:05)
[2021-02-18] MEDS: Budesonide/Formoterol 80/4.5 6.9 GM 60 PUFF INH IH (08:07)
--- NOTE | 2021-02-18 08:17 | PT.INTREAT ---
Date of service: 02/18/21 Time of Service: 07:15 PT Notes Visit Reasons: ACUTE TRAUMATIC LEFT SUBCAPITAL FEMORAL NECK FX Inpatient Physical Therapy Treatment Note [facility] Date: 02/18/2021 PRECAUTIONS: Fall, WBAT L SUBJECTIVE: Ruby feels that she is ready to discharge to home, where she will have help. She is feeling good today, and without pain. OBJECTIVE: Reviewed VENTURA precautions. PAIN: No c/o pain BED MOBILITY/TRANSFERS Sit-stand: I Stand-sit: I Bed-chair: I Chair-bed: I GAIT Assistive Device: FWW Weight bearing: WBAT L Assist: S Distance: 200' THEREX: Patient was instructed in a seated LE strengthening program, as per flow sheet. ASSESSMENT: Patient tolerated a progression in gait distance without gait deviation or pain. She continues to demonstrate independence with transfers and bed mobility at this time. PLAN: Discharge to home when ready per MD. She is not interested in PT at this time. She will continue with her HEP and follow instructions from VENTURA packet she received. TREATMENT CODE/TIME: 25 minutes; 18191, [id number] (07:15)
--- NOTE | 2021-02-18 09:25 | W.PM.DS.N ---
Date of service: 02/18/21 Time of Service: 09:25 DS: Diagnosis Discharge Diagnosis (1) Leukocytosis: Status: Acute (2) Vitamin D deficiency: Status: Acute (3) Closed fracture of neck of left femur: Status: Acute (4) COPD (chronic obstructive pulmonary disease): Status: Chronic (5) Hypokalemia: Status: Resolved (6) Dizziness: Status: Resolved Discharge Plan Disposition Patient Disposition: HOME Condition: Stable Discharge Details Reason For Visit: ACUTE TRAUMATIC LEFT SUBCAPITAL FEMORAL NECK FX Admit Date/Time: 02/14/21 16:31 Admit Provider: Marlen Kessler Attending Provider: Marlen Kessler Primary Care Provider: Chari Abdullahi Hospital Course Hospital Course: This is a 75 year old female who sustained a fall at home while outside taking down a hornets nest. She was looking up and had her hands above her head which caused her to get dizzy, which she reports she has a history of, when she fell over landing on her left hip. she was not able to bear weight and brought to the ED where a workup was consistent with fractured hip. She was medically cleared and the next day, Tuesday, February 15 she underwent a unipolar replacement of her left hip for her femoral neck fracture. Intra and post operative courses were unremarkable. Post op day 1 she was re-ambulated and doing well. Her white count was elevated to 20 with no signs of infection, following day the white count returned to 11. she remained afebrile with no sign of postoperative infection. Routine post operative care with no issues and she is cleared by physical therapy to safely return home. Recommendations are for outpatient physical therapy based on her preference. She is eating and drinking and bowels and bladder functioning well. She will follow up outpatient with PT and orthopedics. She was also scheduled to see her primary care provider. Discharge discussed with Dr Kessler. Home Meds and New Rx's Prescriptions: New calcium carbonate-vitamin D3 [Calcium 600 + D(3)] 600 mg(1,500mg) -200 unit Tablet 1 tab PO BID Qty: 60 RF: 0 cholecalciferol (vitamin D3) [Vitamin D3] 10 mcg (400 unit) Tablet 400 unit PO DAILY Qty: 30 RF: 0 docusate sodium [Colace] 100 mg Capsule 100 mg PO BID Qty: 60 RF: 0 hydrocodone-acetaminophen 5-325 mg Tablet 1 tab PO TID PRN PRN (Reason: Pain) Qty: 12 RF: 0 aspirin 81 mg tablet,delayed release (DR/EC) 81 mg PO BID Qty: 60 RF: 0 Continued acetaminophen [Tylenol Extra Strength] 500 MG tablet 500 mg PO PRN PRN (Reason: Pain) RF: 0 atorvastatin 20 mg Tablet 20 mg PO DAILY RF: 0 losartan 25 mg Tablet 50 mg PO DAILY RF: 0 metoprolol succinate 50 MG tablet extended release 24 hr 75 mg PO DAILY Qty: 45 RF: 0 nitroglycerin 0.4 MG tablet, sublingual 0.4 mg Sublingual Q5 MIN PRN X3 PRNQty: 10 RF: 0 aspirin [Aspir-Low] 81 MG tablet,delayed release (DR/EC) 81 mg PO DAILY RF: 0 albuterol sulfate 1.25 mg/3 mL Solution For Nebulization 1.25 mg INHALATION Q4H PRNRF: 0 albuterol sulfate [ProAir HFA] 90 mcg/actuation Hfa Aerosol Inhaler 2 puff INHALATION QID PRNRF: 0 Spiriva with HandiHaler 18 mcg capsule, w/inhalation device 1 cap INHALATION DAILY RF: 0 budesonide-formoterol [Symbicort] 80-4.5 mcg/actuation HFA aerosol inhaler 1 puff INHALATION BID RF: 0 lorazepam 0.5 mg Tablet 0.25 mg PO HS RF: 0 paroxetine HCl [Paxil] 20 mg Tablet 20 mg PO DAILY RF: 0 Discharge Instructions Instructions: ORIF of Hip Fracture (DC) Additional Instructions: Aspirin 81mg twice daily for 30 days as DVT prophylaxis (prevent blood clots) May shower and get dressing wet. Leave dressing alone and let it come off by itself. Total hip precautions left side. Stand Alone Forms: Nursing Discharge Form Referrals: Bubba Oliveira MD [ CONSULTING PHYSICIAN] - 03/13/21 8:30 am (will be seen Physician Shared Services And Outsourcing Manager) Chari Abdullahi [Primary Care Provider] - 02/25/21 8:45 am [facility] [OTHER] - 03/03/21 9:45 am Activity:: total hip precaution left Equipment/Supplies:: Walker Diet:: As Tolerated Discharge Orders Discharge Orders: Discharge Order (Routine); Ordered 02/18/21 Ordered By: Sona Macias DS: Summary Time Spent with Patient providing and/or coordinating discharge services: Greater than 30 minutes Status at Discharge Functional status at discharge: uses cane/walker Overall status at discharge: patient is progressing back to baseline Mental Status: mental status grossly normal Speech and Movement: speech and movement normal Mood: congruent mood Affect: normal affect Exam Const General: cooperative, healthy appearing, comfortable and no acute distress Nutritional Appearance: average body habitus Orientation: alert, awake and oriented x3 HENMT Head: normal to inspection, normocephalic and atraumatic Face and sinus: normal facial exam Mouth: moist mucous membranes abnormal (slightly dry, no exudates) Resp Effort & Inspection: normal respiratory effort Auscultation: rales bilaterally at the base, no rhonchi and no wheezes Cardio Rate: regular rate Rhythm: regular rhythm GI Inspection: normal to inspection Palpation: soft and nontender Auscultation: normal bowel sounds Skin Lesions: lesion noted (left hip surgical dressing clean dry and intact, no surrounding erythema) Rashes: no rashes Neuro General: patient alert, patient awake, patient oriented x3 and no focal motor deficits Extrem General: normal to inspection, no pedal edema and no calf tenderness Psych Appearance: grossly normal Mental Status: mental status grossly normal Speech and Movement: speech and movement normal Mood: congruent mood Affect: normal affect Attitude: cooperative DS: Data Vitals/I&O Vitals and I&O: Vital Signs Temperature 36.6 C 02/18/21 07:49 Temperature Source Tympanic 02/18/21 07:49 Pulse 99 H 02/18/21 07:49 Pulse Rhythm Regular 02/18/21 07:19 Pulse 80 02/14/21 17:01 Respiratory Rate 18 02/18/21 07:49 Respiratory Effort Non-Labored 02/18/21 07:19 Respiratory Depth Normal 02/18/21 02:24 Respiratory Pattern Normal 02/18/21 02:24 Blood Pressure 159/77 H 02/18/21 07:49 Blood Pressure Mean 58 02/14/21 17:01 Blood Pressure Position Supine 02/14/21 14:30 Pulse Oximetry 92 02/18/21 07:49 Respiratory End-tidal CO2 24 02/15/21 18:06 Oxygen Delivery Method Room Air 02/18/21 07:49 Oxygen Flow Rate 0 02/18/21 07:49 Pain Level 0 02/18/21 07:49 Comment 02/18/21 07:49 Intake & Output 02/17/21 02/17/21 02/18/21 11:59 23:59 11:59 Intake Total 2521.667 / 3021.667 500 / 3021.667 Output Total 1100 / 2900 1800 / 2900 400 / 400 Balance 1421.667 / 121.667 -1300 / 121.667 -400 / -400 Weight 53.4 kg 53.4 kg Intake: IV 2071.667 / 2071.667 Oral 450 / 950 500 / 950 Output: Urine 1100 / 2900 1800 / 2900 400 / 400 Other: Urine Color Yellow Light Jeanette Light Jeanette Urine Appearance Clear Clear Clear Urine Odor Normal Normal Normal Comment mixed with stool Stool Size Moderate Small Stool Characteristics Formed Soft Brown Formed Voiding Methods Toilet Toilet Toilet Data Completed and Pending Labs on day of discharge: Labs from last 24 hours 02/18/21 02/18/21 06:55 06:55 WBC 11.35 H RBC 3.21 L Hgb 10.7 L Hct 31.2 L MCV 97.2 H MCH 33.3 H MCHC 34.3 RDW 12.0 Plt Count 206 MPV 10.0 Immature Gran % 0.5 Neutrophils % 70.6 Lymphocytes % 14.4 Monocytes % 8.8 Eosinophils % 4.9 Basophils % 0.8 Nucleated RBC % 0 Absolute Neutrophils 8.01 H Absolute Lymphocytes 1.63 Absolute Monocytes 1.00 H Absolute Eosinophils 0.56 Absolute Basophils 0.09 Sodium 140 Potassium 4.1 Chloride 106 Carbon Dioxide 26.0 Anion Gap 8.0 BUN 14 Creatinine 0.7 Estimated GFR/1.73 m2 >= 60.00 Glucose 102 Calcium 7.9 L PFSH Medical History (Updated 02/16/21 @ 11:10 by Sona Macias NP) Atrial fibrillation lone Afib, on asa COPD (chronic obstructive pulmonary disease) Hyperlipidemia Hypertension Pancreatitis Tobacco abuse Vertigo Surgical History H/O bladder repair surgery H/O section History of bilateral tubal ligation History of hysterectomy History of tonsillectomy Trigger Finger release (11/12/13) R Thumb Family History (Updated 02/14/21 @ 16:59 by Marlen Kessler MD) Sister Heart disease Hypertension Sister Hypertension Brother Cancer lung cancer - associated with agent orange exposure Social History (Updated 02/14/21 @ 17:00 by Marlen Kessler MD) Smoking/Tobacco Use Status: Current-Occasional Tobacco Type: cigarettes Tobacco: How many years used: 58 Quit status: considering quitting Counseling given: provider counseling Smoking risk assessment performed?: Yes Alcohol Intake: current Alcohol Intake frequency: holidays/special occasions only Alcohol type: wine Drug use: Never Substance use type: does not use Do you feel safe at home: Yes Do you feel safe in your relationship?: Yes
[2021-02-18] MEDS: Normal Saline Flush 10 ML SYR IVP (12:34)
--- NOTE | 2021-02-18 14:40 | PDOC.CMDIS ---
- If Service Date Differs Date of service: 02/18/21 Time of Service: 14:40 LACE Index Scoring Tool - Questions: Length of Stay (in days): 4 - 6 Acuity (Admit via E.D.?): Yes Comorbidities: Chronic Pulmonary Disease E.D. Visits: 1 - Answers: Total Score: 10 Risk of Readmission: High Risk Care Management Discharge Reason for Hospitalization: Acute traumatic left subcapital femoral neck fracture. Discharge Plan: Ruby will return home today with no new services. PT was offered, but declined by Ruby. She was provided a FWW through [facility], coordinated by CM and PT. Her daughter will drive her home when ready via private vehicle. She will follow up with Ortho, her PCP and discharge plan of care. She is happy to be going home. Patient/Family Education Needs: Review discharge instructions regarding activity levels and medications, discussion of self care needs and goals of care.
--- NOTE | 2021-02-20 16:30 | INDS_ITS ---
Date of service: 02/20/21 PT Notes Visit Reasons: ACUTE TRAUMATIC LEFT SUBCAPITAL FEMORAL NECK FX Physical Therapy Inpatient Discharge Summary Date: 02/18/21 Dates of Service: 02/16/2021 through 02/18/2021 This is a clinical summary of care provided on the duration of dates listed abov e. No charge was made in the completion of this documentation. Referring Doctor: Bubba Oliveira MD PT Orders: PT CONSULT: Left VENTURA Precautions: Fall. Standard. WBAT. VENTURA precautions. Patient Profile/Admitting Diagnosis:?Ruby is a 75 yo female that sustained a fall on 02/14/21 while trying to clear a hornets nest overhead with a rake. She reports dizziness at times looking up and this caused her to fall. She sustained a left hip fracture and underwent left VENTURA on 02/15/21. She reports doing well this morning with minimal pain. PMHX: Medical History (Updated 02/14/21 @ 16:17 by Reji Colin DO) Atrial fibrillation COPD (chronic obstructive pulmonary disease) Pancreatitis Surgical History H/O bladder repair surgery H/O section History of bilateral tubal ligation History of hysterectomy History of tonsillectomy Trigger Finger release (11/12/13) R Thumb Social History/Home Situation: Lives alone, [address] with one rail. Daughters available to help. Independent at baseline without AD. Equipment Owned/DME: None Subjective: NT. See most recent ADMINISTRATIVE ASSOCIATE notes. Objective:? General Observation: NT. See most recent ADMINISTRATIVE ASSOCIATE notes. Mental Status: NT. See most recent ADMINISTRATIVE ASSOCIATE notes. Pain: NT. See most recent ADMINISTRATIVE ASSOCIATE notes. ROM: Right Upper Extremity: Shoulder Flexion WFL. Shoulder abduction WFL. Elbow flexion WFL. Wrist flexion WFL. Opening and closing of hand WFL. Left Upper Extremity: Shoulder Flexion WFL. Shoulder abduction WFL. Elbow flexion WFL. Wrist flexion WFL. Opening and closing of hand WFL. Right Lower Extremity: Hip flexion WFL. Hip abduction WFL. Knee flexion WFL. Ankle dorsiflexion WFL. Ankle plantarflexion WFL. Left Lower Extremity: Hip flexion impaired. Hip abduction impaired. Knee flexion WFL. Ankle dorsiflexion WFL. Ankle plantarflexion WFL. Strength: Right Upper Extremity: Shoulder flexors 5/5. Shoulder abductors 5/5. Elbow flexors 5/5. Elbow extensors 5/5. Echocardiography Radiology Technologist strong. Left Upper Extremity: Shoulder flexors 5/5. Shoulder abductors 5/5. Elbow flexors 5/5. Elbow extensors 5/5. Echocardiography Radiology Technologist strong. Right Lower Extremity: Hip flexors 5/5. Hip abductors 5/5. Knee flexors 5/5. Knee extensors 5/5. Ankle dorsiflexors 5/5. Ankle plantarflexors 5/5. Left Lower Extremity: Hip flexors 2+/5. Hip abductors 2+/5. Knee flexors 4/5. Knee extensors 4/5. Ankle dorsiflexors 5/5. Ankle plantarflexors 5/5. Sensation:?Intact as to pain and pressure on bilateral lower extremities. No reported sensory deficit between sides. Bed Mobility/Transfers: Supine to sit: Independent Sit to supine: Independent Sit to stand: Independent Stand to sit: Independent Gait:?Up to 200 feet of level surface ambulation using front wheeled walker with WBAT on the left LE requiring only supervision and minimal verbal cueing for safety. Balance:? Static Sitting: Normal Dynamic Sitting: Normal Static Standing: Normal Dynamic Standing: Fair Assessment: Ruby demonstrates functional mobility improvement during this episode of care as evidenced by current mobility level in goal status below. Patient presents with clinical signs and symptoms consistent with current/admitting diagnoses that have resulted to mobility limitations, gait instability, generalized weakness, and impairment of motor control as demonstrated by the following impairment level findings: 1. Decreased strength to left hip major muscle groups 2. Impaired dynamic standing balance Impairments are contributing to the following functional limitations: 1. Inability to safely ambulate without assistive device 2. Increase completion time for mobility ADL performance 3. Increased fall risk 4. Inability to negotiate steps alone safely Goals: Goals x1 week 1. Supine-Sit independent MET 2. Sit-Supine independent MET 3. Sit-Stand independent MET 4. Stand-Sit independent MET 5. Bed-Chair independent MET 6. Chair-Bed independent MET 7. Independent gait on level surface with use of least restrictive device for at least 300 feet without report of pain nor dyspnea NOT MET 8. Independent stair negotiation while holding onto single rail for at least 5 steps without report of pain nor dyspnea NOT MET 9. Independent with home exercise program NOT MET 10. Good static and dynamic standing balance/tolerance NOT MET DISCHARGE RECOMMENDATIONS: Patient needs services to facilitate return to premorbid independent level. TREATMENT CODE/TIME: [place] Thank you for the opportunity to participate in the care of this patient. Jessy Marshall PT, DPT, CLT [facility] [place], [place]
--- NOTE | 2021-02-25 11:31 | ROE_ITS ---
Date of service: 02/15/21 Time of Service: 16:00 Operative Note Operative Note DATE OF PROCEDURE: 02/15/21 PRE-OP DIAGNOSIS: Displaced fracture left femoral neck POST-OP DIAGNOSIS: same PROCEDURE: Unipolar prosthetic replacement of the left femoral head for femoral neck fracture SURGEON: Bubba Oliveira WIND [employer] MECHANICAL ENGINEER: Parisa Lino ANESTHESIA TYPE: General LMA/ETT Refer to Anesthesia Record ESTIMATED BLOOD LOSS: 150 PATHOLOGY: none sent COMPLICATIONS: None Patient was transported to: PACU Patient's condition: stable Implants: Size 4 change a cemented femoral stem. A -2 sleeve and a 44 mm diameter unipolar head. Indications: This is a 75-year-old white female who fell from a standing height onto her left hip on 02/14/2021. She was attempting to remove a hornets nest. She was unable to bear weight on her left leg following a fall. She was seen in the emergency room where x-rays showed a displaced fracture of the left femoral neck, mid cervical. Unipolar prosthetic replacement was recommended the optimum treatment to relieve her pain and to restore her previous ambulatory abilities risk complications procedure were explained to patient detail preop. Procedure Description: She was taken the operating room on 02/15/2021 and placed supine operating table. A general anesthetic was administered. Once good anesthesia was obtained she was turned to the left lateral position on the operating table. The position was maintained by pneumatic beanbag. The left hip was then prepped and draped free in the usual sterile fashion. Standard posterior lateral incision was made centered over the greater trochanter. The incision was carried down through the skin and subcu down to the iliotibial band and gluteus fascia. And then the incision was carried down in line with the fibers of the tensor fascia miky. Charnley self-retaining retractor was then inserted. The left hip was internally rotated. The piriformis tendon was identified. A tag suture was placed in the tendon and the tendon was released from his insertion of the femoral neck. Using electrocautery the remainder of the short external rotators were T-shaped capsular incision was made exposing the fracture. The femoral head was removed with the corkscrew device. The femoral neck was then resected at appropriate level angle using oscillating saw. Longitudinal reamers were inserted into the femoral shaft until there was some chatter with a 5 reamer. Fit and fill with a size femoral reamer.. Femoral canal was prepared for cementing with pulse irrigation lavage of saline solution and drying with peroxide soaked 4 x 4's. 2 packages of gentamicin impregnated methylmethacrylate were vacuum mixed and the cement gun. 4 x 4's were removed from the femoral canal and then the canal was filled with methylmethacrylate using cement gun and then pressurized in the canal. The size 4 standard cemented stem was then inserted into the canal until the calcar made contact with the collar of the prosthesis. Pressure was maintained on the stem until the cement had cured. The excess amount of x-ray were removed from the neck of the prosthesis while cement was closed off using curettes. Once the methylmethacrylate had cured acetabulum was then sized. She was found to require size 44 unipolar head. She was also found to require a -2 neck sleeve. She will sleeve was placed in the unipolar head and then the entire assembly was placed on the neck of the stem and impacted in the place with the impactor mallet. The entire assembly was then reduced into the acetabulum the entire assembly was then reduced in the acetabulum. There was a good suction fit of the unipolar head. Limb lengths appeared equalized and the hip was stable to range of motion. The left leg was abducted on a Hernandez stand and closure was begun. The wound was irrigated with Betadine saline solution. Obvious immediate bleeders were cauterized. Posterior capsule was repaired with interrupted [id number]-[id number] sutures of #1 Vicryl suture. The performance then was reattached to the abductor tendon at the tip of the trochanter with a interrupted ekzhtk-op-[id number] sutures of #1 Vicryl suture. Skin and subcu down to the iliotibial band and gluteus fascia was infiltrated with 0.5% Marcaine with epinephrine solution for postoperative analgesia. The iliotibial band and gluteus fascia were approximated interrupted [id number] sutures of #1 Vicryl x2. Subcu was approximated interrupted 2-0 Vicryl sutures. Skin edges approximated with skin bertha. Sterile dressings were applied of Xeroform gauze then cover with Mepilex dressing. Patient was then turned supine operating table. Anesthesia was reversed without complication. Abduction pillow was placed between the legs. Estimated blood loss was 150 cc. She was discharged to recovery in good condition.
== END 2021-02-18 13:46 | disposition home or self-care (01) | DRG 522 ==
LOC: ER 16:49 → MS 17:26
PROVIDERS: Nurse Practitioner Acute Care; Orthopaedic Surgery; Admitting Provider Internal Medicine; Emergency Provider Student in an Organized Health Care Education/Training Program; PCP Nurse Practitioner Family; Visit Provider Internal Medicine
PROC: 0SRS0J9 Replacement of Left Hip Joint, Femoral Surface with Synthetic Substitute, Cemented, Open Approach (ICD-10-PCS; CPT 27125; principal; 2021-02-15 15:15)
DX: S72.012A Unspecified intracapsular fracture of left femur, initial encounter for closed fracture (principal); R42 Dizziness and giddiness; J44.9 Chronic obstructive pulmonary disease, unspecified; M85.88 Other specified disorders of bone density and structure, other site; F17.210 Nicotine dependence, cigarettes, uncomplicated; Z20.822 Contact with and (suspected) exposure to COVID-19; I48.0 Paroxysmal atrial fibrillation; E87.6 Hypokalemia; Z79.82 Long term (current) use of aspirin; I10 Essential (primary) hypertension; E78.5 Hyperlipidemia, unspecified; W18.39XA Other fall on same level, initial encounter; E55.9 Vitamin D deficiency, unspecified; D72.829 Elevated white blood cell count, unspecified
CPT/HCPCS: 27236; 36415; 73552; 76942; 80048; 80053; 82306; 85027; 87635; 93005; 94640; 96365; 96375; 96376; 97110; 97161; 97530; 99285; J1650; 71045; 72170; 83735; 84484; 85025; 85610; 93010; 94667; 99223; 99232; 99233; 99239; J0131; J0690; J1100; J1644; J1885; J2001; J2370; J2405; J3490

== ENCOUNTER 2021-03-13 10:53 | Outpatient (CLI) | payer OTHER, SELFPAY ==
--- NOTE | 2021-03-13 08:30 | DI.RAD_ITS ---
Exam(s) XR HIP LT AP LAT ONLY EXAM: XR HIP LT AP LAT ONLY CLINICAL HISTORY: L femur fx. TECHNIQUE: 2D digital imaging was performed. COMPARISON: CR XR PELVIS AP from 02/15/2021 FINDINGS: BONES: There are stable post operative changes present. No new fracture or dislocation. JOINTS: The joint spaces are well maintained. SOFT TISSUE: Normal. IMPRESSION: Stable postoperative changes. DATA REPOSITORY: RADIATION DOSE DELIVERED:
== END 2021-03-13 10:54 | disposition home or self-care (01) ==
LOC: DIORS 03-18 10:54
PROVIDERS: PCP Nurse Practitioner Family; Visit Provider Physician Assistant
DX: S72.002D Fracture of unspecified part of neck of left femur, subsequent encounter for closed fracture with routine healing (principal); X58.XXXD Exposure to other specified factors, subsequent encounter; Z96.642 Presence of left artificial hip joint
CPT/HCPCS: 73502

== ENCOUNTER 2021-04-03 04:23 | Outpatient (CLI) | payer OTHER, SELFPAY ==
--- NOTE | 2021-04-03 14:30 | DI.CTLCSR_ITS ---
Exam(s) CT CHEST LUNG CANCER SCREEN EXAM: CT CHEST LUNG CANCER SCREEN CLINICAL HISTORY: SCREENING FOR LUNG CA, CURRENT SMOKER, [id number] TECHNIQUE: Imaging Protocol: Axial computed tomography images with coronal and sagittal reformatted images were created and reviewed COMPARISON: CT CT CHEST PE CTA from 01/23/2019 FINDINGS: Tracheobronchial tree: Patent where visualized. Mediastinum and Marian: No dominant adenopathy or fluid collection. Pulmonary parenchyma: No consolidation or dominant measurable mass. Stable moderate centrilobular emp hysema, greatest in the upper lobes, right greater than left.. Lung Nodules: 5 millimeter right lower lobe nodule, stable. Additional 3 millimeter nodule right low er lobe. Pleura: No effusion or pneumothorax. Heart: The heart is not dilated. Moderate coronary artery calcifications are seen. Aorta: Thoracic aorta non-dilated. Moderate calcification. Upper abdomen: Large quantity of stool, otherwise unremarkable. Bones: Pectus excavatum deformity degenerative disc changes. Soft Tissues: Unremarkable. IMPRESSION: Stable small nodules right lower lobe. Category Lung RADS Cat 2 - Benign Appearance / Behavior: Nodules with a very low likelihood of becomi ng a clinically active cancer due to size or lack of growth Lung-RADS 1.0 CATEGORIES: Category 0 - Prior chest CT exam(s) being located for comparison. Category 1 - Annual screening in 12 months. No nodules or definitely benign nodules. Category 2 - Annual screening in 12 months. Benign appearance. Nodules with low likelihood of becomin g active cancer. Category 3 - 6-month follow-up. Probably benign. Short-term follow-up suggested. Nodules with low lik elihood of becoming active cancer. Category 4A - 3-month follow-up and CT/PET if >8 mm in size. Suspicious finding. Findings which requi re additional testing. Category 4B - Findings which require additional testing and tissue sampling. Modifier S- Potentially clinically significant findings (non lung cancer) RADIATION DOSE DELIVERED: 78.51mGy.cm Total DLP 1.84mGy CTDIvol DATA REPOSITORY: All CT scans at this facility are submitted to the National Radiology Data Registry (NRDR) Dose Index Registry (DIR) with the [employer] (A[employer]). RADIATION OPTIMIZATION: All CT scans at this facility use at least one of these dose optimization te chniques: automated exposure control; mA and/or kV adjustment per patient size (includes targeted exa ms where dose is matched to clinical indication); or iterative reconstruction.
== END 2021-04-03 04:43 ==
PROVIDERS: PCP Nurse Practitioner Family; Visit Provider Nurse Practitioner Family
DX: Z12.2 Encounter for screening for malignant neoplasm of respiratory organs (principal); R91.8 Other nonspecific abnormal finding of lung field; F17.200 Nicotine dependence, unspecified, uncomplicated
CPT/HCPCS: 71271

== ENCOUNTER 2021-04-17 01:06 | Outpatient (CLI) | payer OTHER, SELFPAY ==
--- NOTE | 2021-05-04 08:47 | W.ZIOMONITOR ---
Date of service: 05/04/21 Time of Service: 08:47 14 Day Survey Methodologist Referring Provider:: Boby Indications:: AF Note: Is a 14-day monitor ordered indication of atrial fibrillation. The patient was in normal sinus rhythm for the majority the recording with an average heart rate of 77 bpm. There were 14 episodes of supraventricular tachycardia the longest lasting eight beats. None of these were symptomatic. There were no episodes of ventricular tachycardia. There were rare PACs/PVCs. There were no episodes of atrial fibrillation, no pauses greater than 3 seconds and no evidence of high degree heart block. There is one patient triggered event associated with normal sinus rhythm.
== END 2021-04-17 01:07 | disposition home or self-care (01) ==
LOC: RT 01:07
PROVIDERS: PCP Nurse Practitioner Family; Visit Provider Nurse Practitioner Family
DX: I48.91 Unspecified atrial fibrillation (principal); R55 Syncope and collapse
CPT/HCPCS: 93246

== ENCOUNTER 2021-05-04 08:47 | Outpatient (CLI) | payer OTHER, SELFPAY | END 2021-05-04 08:48 | LOC: CARDO 05-05 09:32 | PROVIDERS: PCP Nurse Practitioner Family; Referring Provider Nurse Practitioner Family; Visit Provider Internal Medicine Cardiovascular Disease | DX: I48.91 Unspecified atrial fibrillation (principal); R55 Syncope and collapse; I47.1 Supraventricular tachycardia; I49.1 Atrial premature depolarization; I49.3 Ventricular premature depolarization | CPT/HCPCS: 93248 ==

== ENCOUNTER 2021-05-05 02:53 | Outpatient (CLI) | payer OTHER, SELFPAY ==
--- NOTE | 2021-05-05 | DI.US_ITS ---
Exam(s) US CAROTID EXAM: US CAROTID CLINICAL HISTORY: HYPERLIPIDEMIA,E78.5,? CAD, SYNCOPE, S/P FALL, SMOKER. TECHNIQUE: Ultrasound carotids performed using grayscale, color-flow, and spectral Doppler imaging. COMPARISON: No exams were available for comparison FINDINGS: RIGHT CAROTID ARTERY: Plaque: Mild calcific plaque seen in the carotid bulb and the proximal right ICA. Velocity elevation: None. LEFT CAROTID ARTERY: Plaque: Mild calcific plaque seen in the carotid bulb, common carotid artery in the proximal ICA. Velocity elevation: None. VERTEBRAL ARTERIES: Antegrade flow. Measurements: R Bulb: 96.4cm/s PS / 14.1cm/s ED R CCA: 72.6cm/s PS / 9.6cm/s ED R ECA: 55.9cm/s PS / 5.8cm/s ED R ICA Prox: 72cm/s PS /10.9cm/s ED R ICA Mid: 64.3cm/s PS / 13.5cm/s ED R ICA Distal: 75.8cm/s PS /18cm/s ED R Vert: 53.3cm/s PS / 9cm/s ED R SVR: 1.04 R DVR: 1.88 L Bulb: 84.2cm/s PS /11.6cm/s ED L CCA: 81.6cm/s PS / 11.6cm/s ED L ECA: 89.3cm/s PS /6.4cm/s ED L ICA Prox:58.5cm/s PS / 12.9cm/s ED L ICA Mid: 81.6cm/sPS / 16.7cm/s ED L ICA Distal: 71.3cm/s PS / 16.7cm/s ED L Vert: 73.9cm/s PS / 15.4cm/s ED L SVR: 1 L DVR: 1.44 IMPRESSION: No evidence for hemodynamically significant carotid stenosis. Criteria for Carotid Stenosis: Normal: ICA PSV <125 cm/s no plaque or intimal thickening is visible. <50% stenosis: ICA PSV <125 cm/s and plaque or intimal thickening is visible. 50-69% stenosis: ICA PSV is 125-250 cm/s and plaque is visible. >70% stenosis to near occlusion: ICA PSV >250 cm/s with visible plaque and luminal narrowing. DATA REPOSITORY:
== END 2021-05-05 03:13 ==
PROVIDERS: PCP Nurse Practitioner Family; Visit Provider Nurse Practitioner Family
DX: E78.5 Hyperlipidemia, unspecified (principal); F17.200 Nicotine dependence, unspecified, uncomplicated
CPT/HCPCS: 93880

== ENCOUNTER 2021-05-07 03:39 | Outpatient (CLI) | payer OTHER, SELFPAY ==
--- NOTE | 2021-05-07 14:12 | DI.US_ITS ---
APPROVED REPORT EXAM: Comprehensive 2D, Doppler, and color-flow Echocardiogram Patient Location: Out-Patient Senior Sharepoint Architect: Imelda Gilliam RDCS (AE) Indications: Atrial Fibrillation, Syncope Other Information Study Quality: Adequate Conclusion Normal left ventricular wall thickness and chamber size. Estimated ejection fraction is 60%. Wall m otion is normal Normal right ventricular size and systolic function Both atria are normal in size Mildly sclerotic trileaflet aortic valve with mild regurgitation Normal mitral valve, trace mitral regurgitation Normal tricuspid valve, trace tricuspid regurgitation Mildly dilated ascending aorta measuring 3.45 cm Wall motion Left Ventricle The left ventricle is normal size. The left ventricular systolic function is normal. The left ventric ular ejection fraction is within the normal range. There is normal left ventricular wall thickness. T here is normal LV segmental wall motion. There is no ventricular septal defect visualized. LVEF is 57 %. Right Ventricle The right ventricle is normal size. The right ventricular systolic function is normal. The RVSP is 24 .5mmHg. Atria The left atrium size is normal. The right atrium size is normal. The interatrial septum is intact wit h no evidence for an atrial septal defect. Aortic Valve The Aortic valve is sclerotic. Aortic valve is trileaflet. There is no aortic valvular stenosis. Mil d aortic regurgitation. Mitral Valve The mitral valve is normal in structure. No evidence of mitral valve stenosis. Trace mitral regurgita tion. Tricuspid Valve The tricuspid valve is normal in structure. There is no tricuspid valve stenosis. Trace tricuspid reg urgitation. Pulmonic Valve The pulmonary valve is normal in structure. There is no pulmonic valvular stenosis. Trace pulmonic re gurgitation. Great Vessels The aortic root is normal in size. The ascending aorta is mildly dilated. IVC is normal in size and c ollapses >50% with inspiration. Pericardium There is no pericardial effusion. 2D Dimensions IVSD d PLAX 0.89 cm F: 0.6-1.0 LV Vol A2C d MOD 89.5 mL LVPW d PLAX 0.85 cm F: 0.6 - 1.0 LV Vol A4C d MOD 69.3 mL LVID d PLAX 4.05 cm F: 3.8 - 5.2 LA vol/ BSA A2C s A-L 18.4 mL/m2 LVDs 2.85 cm F: 2.2 - 3.5 LA vol/ BSA A4C s A-L 25.1 mL/m2 Ao Root d 2.78 cm F: 2.7 - 3.3 LA Vol/ BSA Biplane s A-L 21.7 mL/m2 RA Area A4C 10.66 cm2 LA Area A4C s MOD 14.50 cm2 RA Vol/ BSA A4C s A-L 15.8 mL/m2 LA Area A2C s MOD 12.51 cm2 Ao Asc Diam d 3.45 cm F: 2.3 - 3.1 LV EF A4C MOD 57.5 % LV EF Teichholz 55.4 % LV EF A2C MOD 57.2 % LVEF (Muñoz's) 58.24 % F: 54 - 74 LV EF Biplane MOD 58.2 % LV Volume 69.31 mL F: 46 - 106 SV 48.65 mL LV Volume Index 45.90 mL/m2 F: 29 - 61 SV Index 32.08 mL/m2 LV Vol Biplane MOD 83.5 mL FS 28.45 % M-Mode TAPSE 2.47 cm (M/F) >1.7 LV Diastology MV E' medial 0.061 (>0.07 m/s) E/A Ratio 0.8 LV E/e MED 10.25 (<14) MV E Vmax 0.63 (0.4-1.3 m/s) MV E' lateral 0.073 (>0.1 m/s) MV A Vmax 0.75 (0.4-1.3 m/s) LV E/e LAT 8.55 (<14) MV E/A Ratio 0.83 MV E/E' medial 10.29 MV E/E' lateral 8.57 Aortic Valve LVOT Area 3.15 cm2 AoV Area Vmax 1.82 cm2 LVOT Vmax 0.83 m/s AoV Area/ BSA (Vmax) 1.20 cm2/m2 LVOT Mean Mic. 0.52 m/s DONNY Mean Mic. 1.76 cm2 LVOT Peak Grad 2.8 mmHg DONNY Mean Mic. Index 1.16 cm2/m2 LVOT Mean Grad 1.3 mmHg AR DT 1561 msec LVOT VTI 0.190 m AR PHT 453 msec LVOT Diam s 2.00 cm AoV Vmax 1.44 m/s Velocity Ratio 0.57 AoV Mean Mic. 0.94 m/s AoV Peak Grad 8.3 mmHg LVOT SV 60.01 mL AoV Mean Grad 4.0 mmHg AoV VTI 0.296 m AoV Area VTI 2.03 cm2 AoV Area/ BSA (VTI) 1.34 cm/m2 Mitral Valve MV DT 246 (160-240 msec) MV PHT 71 msec MV Area PHT 3.08 cm2 MV VTI 0.274 m MV Area VTI 2.19 (4.0-6.0 cm2) Pulmonary Valve PV Vmax 0.88 (0.5-1.5 m/s) RVOT Peak Gr. 1.87 mmHg PV Peak Grad 3.1 mmHg RVOT Mean Gr. 0.85 mmHg PV Mean Grad 1.9 mmHg RVOT VTI 0.137 m PV VTI 0.185 m RVOT Vmax 0.68 m/s Tricuspid Valve TR Peak Grad 21.4 mmHg TR Vmax 2.32 m/s RA Pressure 3.00 mmHg RVSP (TR) 24.5 mmHg
== END 2021-05-07 03:59 ==
PROVIDERS: PCP Nurse Practitioner Family; Visit Provider Nurse Practitioner Family
DX: I48.91 Unspecified atrial fibrillation (principal); R55 Syncope and collapse; I77.810 Thoracic aortic ectasia; I35.1 Nonrheumatic aortic (valve) insufficiency
CPT/HCPCS: 93306

== ENCOUNTER → 2021-05-08 08:49 | Outpatient (BNVA) | payer OTHER, SELFPAY | PROVIDERS: PCP Nurse Practitioner Family; Visit Provider Student in an Organized Health Care Education/Training Program | DX: S72.002D Fracture of unspecified part of neck of left femur, subsequent encounter for closed fracture with routine healing (principal); X58.XXXD Exposure to other specified factors, subsequent encounter; Z96.642 Presence of left artificial hip joint | CPT/HCPCS: 99212 ==

== ENCOUNTER 2021-08-18 14:40 | Emergency (ER) | payer MEDICARE, SELFPAY ==
[2021-08-18 14:44] VITALS: BP 187/83; PULSE 81; RESP 16; TEMP 37; O2SAT 98
--- NOTE | 2021-08-18 15:00 | DI.RAD_ITS ---
Exam(s) XR HIP LT COMPLETE AP PELVIS EXAM: XR HIP LT COMPLETE AP PELVIS CLINICAL HISTORY: pain. TECHNIQUE: 2D digital imaging was performed. 2D digital imaging was performed of the left hip.Four views were obtained. AP pelvis and AP and late ral left hip views were obtained. COMPARISON: No exams were available for comparison FINDINGS: BONES: There are stable post operative changes present. No acute fracture or dislocation. JOINTS: The joint spaces are well maintained. No joint effusion is present. SOFT TISSUE: Atherosclerosis. IMPRESSION: 1. Stable postoperative changes. 2. No acute abnormality. DATA REPOSITORY: RADIATION DOSE DELIVERED:
--- NOTE | 2021-08-18 15:02 | ED.GENADUL_ITS ---
Discharge Plan Disposition Patient Disposition: HOME Condition: Stable Discharge Details Clinical Impression: Hip pain, left Primary Care Provider: Chari Abdullahi ED Provider: Josh Bernal Home Meds and New Rx's Prescriptions: Continued acetaminophen [Tylenol Extra Strength] 500 MG tablet 500 mg PO PRN PRN (Reason: Pain) RF: 0 atorvastatin 20 mg Tablet 20 mg PO DAILY RF: 0 losartan 25 mg Tablet 50 mg PO DAILY RF: 0 metoprolol succinate 50 MG tablet extended release 24 hr 75 mg PO DAILY Qty: 45 RF: 0 nitroglycerin 0.4 MG tablet, sublingual 0.4 mg Sublingual Q5 MIN PRN X3 PRNQty: 10 RF: 0 albuterol sulfate 1.25 mg/3 mL Solution For Nebulization 1.25 mg INHALATION Q4H PRNRF: 0 albuterol sulfate [ProAir HFA] 90 mcg/actuation Hfa Aerosol Inhaler 2 puff INHALATION QID PRNRF: 0 Spiriva with HandiHaler 18 mcg capsule, w/inhalation device 1 cap INHALATION DAILY RF: 0 budesonide-formoterol [Symbicort] 80-4.5 mcg/actuation HFA aerosol inhaler 1 puff INHALATION BID RF: 0 lorazepam 0.5 mg Tablet 0.25 mg PO HS RF: 0 paroxetine HCl [Paxil] 20 mg Tablet 20 mg PO DAILY RF: 0 calcium carbonate-vitamin D3 [Calcium 600 + D(3)] 600 mg(1,500mg) -200 unit Tablet 1 tab PO BID Qty: 60 RF: 0 cholecalciferol (vitamin D3) [Vitamin D3] 10 mcg (400 unit) Tablet 400 unit PO DAILY Qty: 30 RF: 0 aspirin 81 mg tablet,delayed release (DR/EC) 81 mg PO BID Qty: 60 RF: 0 ibuprofen 200 mg Capsule 600 mg PO Q8H PRNRF: 0 Discharge Instructions Instructions: Hip Pain (ED) Additional Instructions: follow up with Dr. renee if the pain continues in 1-2 weeks if you have severe worsening pain or new symptoms such as fevers or abdominal pain return to the emergency department Medical Decision Making 76 yo female who had a prior hemiarthroplasty of the left hip and comes in with left hip pain. She states it started while she was in an exercise class yesterday but denies falls or trauma. She states it hurts to walk. She has no other pain or symptoms. On exam she is in no distress. SHe can full range the hip on exam and has no leg swelling and normal sensation. Has tenderness over the lateral hip. No abdominal tenderness. I suspect a strain of the hip but will xray to evaluate for possible fracture/dislocation pt stable and xray unremarkable. No new pain and still has full range of motion. Can bear weight with some pain. She is stable for d/c and given she can bear weight do not feel ct or mri indicated Differential Diagnosis Differential Diagnosis: contusion, sprain, strain Medical Records Medical records reviewed: Yes I reviewed the patient's medical records. Imaging Data Radiologic Study: Attestation: I personally reviewed and interpreted this imaging study as follows: Imaging: X-Ray Radiologist's impression: no acute findings HPI General Date/Time Provider Initiated Documentation: 08/18/21 14:44 . Limitations to Documentation: no limitations . Information obtained by: patient . History of Present Illness 76 year old F presents to the emergency department with the chief complaint of left hip pain, described as moderate, with intensity rated at 5. Quality is described as aching, and is localized to the left (hip). Patient reports no radiation. Patient started experiencing this day(s) (1) and it has been constant. Rest improves symptom(s), Other factors that worsen symptoms (walking) . Patient notes no other symptoms.. Patient did receive the following treatments prior to arrival, Aspirin Related Data Home Medications Medication Instructions Recorded Confirmed acetaminophen [Tylenol Extra 500 mg PO PRN PRN 11/25/13 08/18/21 Strength] metoprolol succinate 75 mg PO DAILY #45 tabcr 07/30/17 08/18/21 nitroglycerin 0.4 mg SUBLINGUAL Q5 MIN PRN X3 07/30/17 08/18/21 PRN #10 tab.subl albuterol sulfate 1.25 mg INHALATION Q4H PRN 01/14/19 08/18/21 albuterol sulfate [ProAir HFA] 2 puff INHALATION QID PRN 01/14/19 08/18/21 atorvastatin 20 mg PO DAILY 02/01/19 08/18/21 losartan 50 mg PO DAILY 02/01/19 08/18/21 Spiriva with HandiHaler 1 cap INHALATION DAILY 02/14/21 08/18/21 budesonide-formoterol [Symbicort] 1 puff INHALATION BID 02/14/21 08/18/21 lorazepam 0.25 mg PO HS 02/14/21 08/18/21 paroxetine HCl [Paxil] 20 mg PO DAILY 02/17/21 08/18/21 aspirin 81 mg PO BID #60 tab 02/18/21 08/18/21 calcium carbonate-vitamin D3 1 tab PO BID #60 tab 02/18/21 08/18/21 [Calcium 600 + D(3)] cholecalciferol (vitamin D3) 400 unit PO DAILY #30 tab 02/18/21 08/18/21 [Vitamin D3] ibuprofen 600 mg PO Q8H PRN 08/18/21 08/18/21 Previous Rx's Medication Instructions Recorded metoprolol succinate 75 mg PO DAILY #45 tabcr 07/30/17 nitroglycerin 0.4 mg SUBLINGUAL Q5 MIN PRN X3 07/30/17 PRN #10 tab.subl aspirin 81 mg PO BID #60 tab 02/18/21 calcium carbonate-vitamin D3 1 tab PO BID #60 tab 02/18/21 [Calcium 600 + D(3)] cholecalciferol (vitamin D3) 400 unit PO DAILY #30 tab 02/18/21 [Vitamin D3] Allergies Allergy/AdvReac Type Severity Reaction Status Date / Time morphine AdvReac Mild vomiting Verified 08/18/21 14:47 General Stated Complaint: Orthopedic SEAMUS: 3 Review of Systems All systems reviewed & are unremarkable except as noted in HPI and below Constitutional Constitutional: Denies chills, Denies fever(s) and Denies weakness Cardiovascular Cardiovascular: Denies chest pain and Denies dyspnea Respiratory Respiratory: Denies cough and Denies dyspnea Gastrointestinal Gastrointestinal: Denies abdominal pain, Denies nausea and Denies vomiting Musculoskeletal Musculoskeletal: Denies joint swelling Neurologic Neurologic: Denies weakness [facility] Medical History (Updated 08/18/21 @ 16:11 by Josh Bernal MD) Atrial fibrillation lone Afib, on asa COPD (chronic obstructive pulmonary disease) Hyperlipidemia Hypertension Pancreatitis Tobacco abuse Vertigo Surgical History (Updated 03/13/21 @ 08:37 by ANSELMO Sears) H/O bladder repair surgery H/O section History of bilateral tubal ligation History of hemiarthroplasty of left hip (02/15/21) History of hysterectomy History of tonsillectomy Trigger Finger release (11/12/13) R Thumb Family History (Updated 02/14/21 @ 16:59 by Marlen Kessler MD) Sister Heart disease Hypertension Sister Hypertension Brother Cancer lung cancer - associated with agent orange exposure Social History (Updated 02/14/21 @ 17:00 by Marlen Kessler MD) Smoking/Tobacco Use Status: Current-Occasional Tobacco Type: cigarettes Tobacco: How many years used: 58 Quit status: considering quitting Counseling given: provider counseling Smoking risk assessment performed?: Yes Alcohol Intake: current Alcohol Intake frequency: holidays/special occasions only Alcohol type: wine Drug use: Never Substance use type: does not use Do you feel safe at home: Yes Do you feel safe in your relationship?: Yes Exam Const General: no acute distress Orientation: alert HENMT Head: normal to inspection Ears: external ears normal General nose exam: external nose normal Mouth: moist mucous membranes Eyes General: appearance normal, both eyes and all related structures Neck Neck: normal visual inspection Resp Effort & Inspection: normal respiratory effort and able to speak in complete sentences Cardio Rate: regular rate GI Palpation: soft and nontender Skin General skin exam: no rashes or lesions noted Neuro General: patient alert and patient oriented x3 Extrem General: normal to inspection Psych Mental Status: mental status grossly normal Course Vital Signs Vital signs: Vital Signs Temperature 37.0 C 08/18/21 14:44 Pulse 81 08/18/21 14:44 Respiratory Rate 16 08/18/21 14:44 Blood Pressure 187/83 H 08/18/21 14:44 Pulse Oximetry 98 08/18/21 14:44 Temperature 37.0 C 08/18/21 14:44 Temperature Source Temporal Artery Scan 08/18/21 14:44 Pulse 81 08/18/21 14:44 Respiratory Rate 16 08/18/21 14:44 Respiratory Effort Non-Labored 08/18/21 14:50 Blood Pressure 187/83 H 08/18/21 14:44 Blood Pressure Position Sitting 08/18/21 14:44 Pulse Oximetry 98 08/18/21 14:44 Oxygen Delivery Method Room Air 08/18/21 14:44 Oxygen Flow Rate 0 08/18/21 14:44 Pain Level 9 08/18/21 14:44
[2021-08-18 16:33] VITALS: BP 152/84; PULSE 80; RESP 18; O2SAT 98
== END 2021-08-18 16:32 | disposition home or self-care (01) ==
PROVIDERS: Emergency Provider Emergency Medicine; PCP Nurse Practitioner Family
DX: M25.552 Pain in left hip (principal); Z96.642 Presence of left artificial hip joint
CPT/HCPCS: 99283; 73502

== ENCOUNTER 2021-09-08 19:04 | Outpatient (REF) | payer MEDICARE, SELFPAY ==
[2021-09-10 16:30] LABS: COVID-19 RT-PCR UVMMC Result Positive (Negative)
== END 2021-09-08 19:05 | disposition home or self-care (01) ==
LOC: NCHCN 19:04
PROVIDERS: PCP Nurse Practitioner Family; Visit Provider Nurse Practitioner Family
DX: Z20.822 Contact with and (suspected) exposure to COVID-19 (principal); J06.9 Acute upper respiratory infection, unspecified
CPT/HCPCS: U0003

== ENCOUNTER 2021-09-14 12:19 | Inpatient (IN) | payer MEDICARE, SELFPAY ==
[2021-09-14] VITALS (25 sets, daily range): BP systolic 112–181; BP diastolic 59–94; PULSE 69–103; RESP 14–181; TEMP 36.3–36.7; O2SAT 90–100
--- NOTE | 2021-09-14 12:15 | DI.RAD_ITS ---
Exam(s) XR PORTABLE CHEST AP EXAM: XR PORTABLE CHEST AP CLINICAL HISTORY: cough, fever, r/o acute disease. TECHNIQUE: 2D digital imaging was performed. COMPARISON: CR,XR XR PORTABLE CHEST AP from 02/14/[address] CHEST LUNG CANCER SCREEN from 04/03/[address] CHEST LUNG CANCER SCREEN from 04/03/2021 FINDINGS: Heart size is upper normal. Calcified aortic arch noted. The mediastinum is not widened. There are no confluent infiltrates nor pleural effusions evident. No pulmonary edema. IMPRESSION: No acute pulmonary findings on this single AP portable view of the chest. DATA REPOSITORY: RADIATION DOSE DELIVERED: All CT scans at this facility use at least one of these dose optimization techniques: automated exposure control; mA and/or kV adjustment per patient size (includes targeted e xams where dose is matched to clinical indication); or iterative reconstruction.
--- NOTE | 2021-09-14 12:18 | ED.GENADUL_ITS ---
Discharge Plan Disposition Patient Disposition: [facility] INPATIENT Condition: Stable Discharge Details Clinical Impression: COVID-19, Hypoxia, Requires supplemental oxygen, History of COPD Admit Date/Time: 09/14/21 15:39 Admit Provider: Marlen Kessler Attending Provider: Marlen Kessler Primary Care Provider: Chari Abdullahi ED Provider: Georgiana Guerra Discharge Data Discharge Date/Time-TO BE ENTERED AT DEPARTURE: 09/14/21 16:38 Medical Decision Making 76-year-old female with a history of chronic tobacco smoking, COPD not on home O2, hypertension, hyperlipidemia, pancreatitis and atrial fibrillation not on anticoagulation diagnosed with COVID-19 virus 4 days ago presents for worsening dyspnea on exertion and hypoxia, ~88% O2 sats RA at home. EMS reported oxygen saturation 90% on room air, increased to 99% on 2 L. Oxygen saturation 89% on room air upon my assessment, increased to 95% on 1 L. She has wheezing and rhonchi throughout but appears in no acute respiratory distress. Will place an IV, bolus IV fluids, screening labs, portable chest x-ray, DuoNeb, Solu-Medrol and reassess. Labs and imaging reviewed. White blood cell count 14. Troponin negative. CXR negative. Pt reassessed. O2 sat 95% on 1L at rest. Ambulated pt around the room and O2 sat decreased to mid 80s and pt c/o shortness of breath. Pt lives at home alone. Discussed with pt that I recommended she stay for admission for IV antiviral treatment for Covid, supplemental oxygen, nebs and IV steroids. Pt initially hesistant but understands and agrees with plan. Case d/w hospitalist who accepts pt for admission. Medical Records Medical records reviewed: Yes I reviewed the patient's medical records. Imaging Data Radiologic Study: Radiologist's impression: XR PORTABLE CHEST AP CLINICAL HISTORY: cough, fever, r/o acute disease. TECHNIQUE: 2D digital imaging was performed. COMPARISON: CR,XR XR PORTABLE CHEST AP from 02/14/[address] CHEST LUNG CANCER SCREEN from 04/03/[address] CHEST LUNG CANCER SCREEN from 04/03/2021 FINDINGS: Heart size is upper normal. Calcified aortic arch noted. The mediastinum is not widened. There are no confluent infiltrates nor pleural effusions evident. No pulmonary edema. IMPRESSION: No acute pulmonary findings on this single AP portable view of the chest. Lab Data Lab results reviewed: Yes I reviewed the patient's lab results. ECG Data Attestation: I personally reviewed and interpreted this ECG (s) as follows: Interpretation: Rate of 90, sinus, no acute ST elevation or depression. VT 186. QTc 455. QRS 77. HPI General Mode of arrival: EMS . Date/Time Provider Initiated Documentation: 09/14/21 12:37 . Limitations to Documentation: no limitations . Information obtained by: patient . HPI Narrative: Patient is a 76-year-old female who is a chronic tobacco smoker, with a history of COPD, hypertension, hyperlipidemia, pancreatitis, atrial fibrillation not on anticoagulation diagnosed with COVID-19 virus 4 days ago presents with increasing shortness of breath and hypoxia at home. EMS reported that her oxygen saturation was 90% on room air and increased to 99% on 2 L. She is not on home oxygen. Patient states her symptoms started over 10 days ago during the week. She states the symptoms started with cough, shortness of breath worse with exertion and generalized fatigue. She denies any known fever. She denies any significant sputum production. She states her oxygen on room air at home today was high 80s with exertion and increased to mid 90s at rest. She has reportedly been on prednisone and albuterol since last week without improvement. She is a smoker but has been unable to smoke cigarettes this morning due to her shortness of breath. She was fully vaccinated for Covid in December 2020. Related Data Home Medications Medication Instructions Recorded Confirmed acetaminophen [Tylenol Extra 500 mg PO PRN PRN 11/25/13 09/14/21 Strength] metoprolol succinate 75 mg PO DAILY #45 tabcr 07/30/17 09/14/21 nitroglycerin 0.4 mg SUBLINGUAL Q5 MIN PRN X3 07/30/17 09/14/21 PRN #10 tab.subl albuterol sulfate 1.25 mg INHALATION Q4H PRN 01/14/19 09/14/21 albuterol sulfate [ProAir HFA] 2 puff INHALATION QID PRN 01/14/19 09/14/21 atorvastatin 20 mg PO DAILY 02/01/19 09/14/21 losartan 50 mg PO DAILY 02/01/19 09/14/21 Spiriva with HandiHaler 1 cap INHALATION DAILY 02/14/21 09/14/21 budesonide-formoterol [Symbicort] 2 puff INHALATION BID 02/14/21 09/14/21 lorazepam 0.25 mg PO HS 02/14/21 09/14/21 paroxetine HCl [Paxil] 20 mg PO DAILY 02/17/21 09/14/21 aspirin 81 mg PO BID #60 tab 02/18/21 09/14/21 calcium carbonate-vitamin D3 1 tab PO BID #60 tab 02/18/21 09/14/21 [Calcium 600 + D(3)] cholecalciferol (vitamin D3) 400 unit PO DAILY #30 tab 02/18/21 09/14/21 [Vitamin D3] ibuprofen 600 mg PO Q8H PRN 08/18/21 09/14/21 prednisone 0 mg PO DAILY 09/14/21 09/14/21 Previous Rx's Medication Instructions Recorded metoprolol succinate 75 mg PO DAILY #45 tabcr 07/30/17 nitroglycerin 0.4 mg SUBLINGUAL Q5 MIN PRN X3 07/30/17 PRN #10 tab.subl aspirin 81 mg PO BID #60 tab 02/18/21 calcium carbonate-vitamin D3 1 tab PO BID #60 tab 02/18/21 [Calcium 600 + D(3)] cholecalciferol (vitamin D3) 400 unit PO DAILY #30 tab 02/18/21 [Vitamin D3] Allergies Allergy/AdvReac Type Severity Reaction Status Date / Time morphine AdvReac Mild vomiting Verified 09/14/21 12:32 General SEAMUS: 3 Review of Systems All systems reviewed & are unremarkable except as noted in HPI and below Constitutional Constitutional: Reports as per HPI, Denies chills, Reports fatigue and Denies fever(s) Eyes Eyes: Denies blurry vision ENT Ears, Nose, Mouth, and Throat: Denies dizziness, Denies sore throat and Denies throat swelling Cardiovascular Cardiovascular: Denies chest pain and Reports dyspnea Respiratory Respiratory: Reports cough and Reports dyspnea Gastrointestinal Gastrointestinal: Denies abdominal pain, Denies diarrhea and Denies vomiting Genitourinary Genitourinary: Denies hematuria and Denies dysuria Musculoskeletal Musculoskeletal: Denies back pain and Denies numbness Integumentary/Breasts Skin/Breast: Denies lesions and Denies rash Neurologic Neurologic: Denies dizziness, Denies localized weakness and Denies numbness Endocrine Endocrine: Reports fatigue Allergic/Immunologic Allergic/Immunologic: Denies throat swelling [facility] Active Problem List (Updated 09/15/21 @ 08:16 by Georgiana Guerra DO) COVID-19 (Acute) Hypoxia (Acute) Requires supplemental oxygen (Acute) History of COPD (Acute) COVID-19 (Acute) Hip pain, left (Acute) History of hemiarthroplasty of left hip (Acute 02/15/21) Vitamin D deficiency (Acute) Leukocytosis (Acute) COPD (chronic obstructive pulmonary disease) (Chronic) Discharge planning issues (Acute) DVT prophylaxis (Acute) Closed fracture of neck of left femur (Acute 02/14/21) Recurrent pancreatitis (Acute 11/17/14) Tobacco use (Chronic) Osteopenia (Chronic) Migraine headache (Chronic) History of Surgical Procedure (Chronic) Insomnia (Chronic) Chest pain (Acute) Medical History (Updated 09/15/21 @ 08:16 by Georgiana Guerra DO) Atrial fibrillation lone Afib, on asa Hyperlipidemia Hypertension Pancreatitis Tobacco abuse Vertigo Surgical History (Updated 03/13/21 @ 08:37 by ANSELMO Sears) H/O bladder repair surgery H/O section History of bilateral tubal ligation History of hysterectomy History of tonsillectomy Trigger Finger release (11/12/13) R Thumb Family History (Updated 02/14/21 @ 16:59 by Marlen Kessler MD) Sister Heart disease Hypertension Sister Hypertension Brother Cancer lung cancer - associated with agent orange exposure Social History (Updated 02/14/21 @ 17:00 by Marlen Kessler MD) Smoking/Tobacco Use Status: Current-Occasional Tobacco Type: cigarettes Tobacco: How many years used: 58 Quit status: considering quitting Counseling given: provider counseling Smoking risk assessment performed?: Yes Alcohol Intake: current Alcohol Intake frequency: holidays/special occasions only Alcohol type: wine Drug use: Never Substance use type: does not use Do you feel safe at home: Yes Do you feel safe in your relationship?: Yes Exam Const General: cooperative and no acute distress HENMT Head: normal to inspection Face and sinus: normal facial exam Eyes General: appearance normal, both eyes and all related structures EOM: EOM intact bilaterally Neck Neck: normal visual inspection and No submandibular swelling Lymphatic: no lymphadenopathy noted Chest Chest: normal inspection of the chest and no tenderness Resp Effort & Inspection: normal respiratory effort and able to speak in complete sentences Auscultation: rhonchi upper bilaterally and lower bilaterally and wheezes scattered wheezes Cardio Rate: regular rate Rhythm: regular rhythm GI Inspection: normal to inspection Palpation: soft, not firm, not rigid and nontender Auscultation: normal bowel sounds Skin General skin exam: no rashes or lesions noted Neuro General: patient alert, patient awake and patient oriented x3 Cognition: normal cognition Speech: speech normal Motor: muscle tone normal throughout Sensory Exam: no sensory deficits noted Extrem General: normal to inspection, full ROM, capillary refill normal, no calf tenderness bilaterally and no edema Psych Appearance: grossly normal Mental Status: mental status grossly normal Speech and Movement: speech and movement normal Affect: normal affect
[2021-09-14 12:34] LABS: Abs Immature Grans 0.08 10^3/uL (0.0-0.06); Absolute Basophil Count 0.04 10^3/uL (0.0-0.2); Basophils % 0.3; Eosinophils % 0.1; HCT 44.5 % (36.0-46.0); Immature Grans % 0.6; MCH 32.9 pg (27.0-33.0); MCHC 33.7 % (32.0-36.0); MCV 97.6 fL (80-95); MPV 8.9 fL (8.0-11.0); Monocytes % 4.2; Neutrophils % 85.8; Nucleated RBC 0 %; Platelet Count 272 10^3/uL (130-400); RBC 4.56 10^6/uL (3.93-5.22); RDW 12.6 % (11.7-14.6); RDW-SD 45.5 fL; WBC 14.17 10^3/uL (4.4-10.8)
[2021-09-14 12:36] LABS: Absolute Eosinophil Count 0.01 10^3/uL (0.0-0.7); Absolute Lymphocyte Count 1.28 10^3/uL (1.2-3.4); Absolute Neutrophil Count 12.16 10^3/uL (1.2-6.7)
[2021-09-14 12:52] LABS: ALT 18 U/L (14-59); AST 15 U/L (15-37); Albumin 3.4 g/dL (3.4-5.0); Alkaline Phosphatase 70 U/L (46-116); Anion Gap 9.2 mmol/L (3-11); BUN 22 mg/dL (7-18); Bilirubin, Total 0.4 mg/dL (0.2-1.0); CO2 27.8 mmol/L (21.0-32.0); Calcium 8.9 mg/dL (8.5-10.1); Chloride 99 mmol/L (98-107); Glucose 117 mg/dL (74-106); Magnesium 2.1 mg/dL (1.8-2.4); Potassium 3.6 mmol/L (3.5-5.1); Sodium 136 mmol/L (136-145); Total Protein 7.4 g/dL (6.4-8.2)
[2021-09-14 12:55] LABS: Troponin I < 0.05 ng/mL (<0.06)
--- NOTE | 2021-09-14 13:30 | RT.EKG_ITS ---
APPROVED REPORT Exam: Resting ECG Reason for Exam: shortness of breath Patient Location: E HR:90 bpm ECG Measurements Heart Rate 90 AXIS [place] 186 P 79 QRSd 77 QRS 35 QT 372 T 15 QTc 455 Conclusion Sinus rhythm...normal P axis, V-rate 60- 99 Left atrial enlargement...P, P'>60mS, <-0.15mV V1 Probable anterior infarct, old...Q >40mS, V2-V5 Borderline ST depression, anterolateral leads...ST <-0.07mV, I aVL V2-V6. Sinus. No STEMI. I have reviewed and interpreted ECG and agree with software generated interpretation.
[2021-09-14] MEDS: Albuterol/Ipratropium 3 ML UPD VIAL UPD (13:43)
[2021-09-14] MEDS: Normal Saline 1,000 ML 1000 ML IV (13:43)
[2021-09-14] MEDS: methylPREDNISolone SUCC 125 MG VIAL IVP (13:43)
--- NOTE | 2021-09-14 16:05 | HPE_ITS ---
Date of service: 09/14/21 Time of Service: 16:05 Assessment and Plan Assessment and plan (1) COVID-19: Status: Acute Assessment and plan: admit to med/surg, on telemetry requiring oxygen, no home oxygen remdesivir and decadron no tocilizumab available pulmonary toilet, proning, (2) COPD (chronic obstructive pulmonary disease): Status: Chronic Assessment and plan: received solumedrol, will be placed on decadron continue resp inhalers (3) Tobacco use: Status: Chronic Assessment and plan: nicotine replacement while hospitalized smoking cessation discussed (4) Paroxysmal atrial fibrillation: Status: Resolved Assessment and plan: in sinus, continue beta carrillo telemetry (5) DVT prophylaxis: Status: Acute Assessment and plan: enoxaparin 40 mg daily (6) Discharge planning issues: Status: Acute Assessment and plan: anticipate discharge home with no services. discussed with DR Kessler History of Present Illness History of Present Illness Chief Complaint: shortness of breath Narrative: presents to ED for worsening shortness of breath. started with resp symptoms on thanksgiving, cough and tingle in throat. tested positive for covid following week. now with worsening sob. was vaccinated, no booster smoker not oxygen dependent, requiring 1-2 liters to maintain sats in the mid to high 90's, desats to 80's with activity and on room air at 90. no fever. Review of Systems All systems reviewed & are unremarkable except as noted in HPI and below Constitutional Constitutional: Reports fatigue and Reports lethargy ENT Ears, Nose, Mouth, and Throat: Denies vertigo Cardiovascular Cardiovascular: Denies chest pain, Reports dyspnea and Reports dyspnea on exertion Respiratory Respiratory: Reports cough, Reports dyspnea and Reports dyspnea on exertion Gastrointestinal Gastrointestinal: Denies abdominal pain Integumentary/Breasts Skin/Breast: Denies lesions and Denies rash Neurologic Neurologic: Denies vertigo Endocrine Endocrine: Reports fatigue [facility] Active Problem List (Updated 09/14/21 @ 16:10 by Sona Macias NP) COVID-19 (Acute) Hip pain, left (Acute) History of hemiarthroplasty of left hip (Acute 02/15/21) Vitamin D deficiency (Acute) Leukocytosis (Acute) COPD (chronic obstructive pulmonary disease) (Chronic) Discharge planning issues (Acute) DVT prophylaxis (Acute) Closed fracture of neck of left femur (Acute 02/14/21) Recurrent pancreatitis (Acute 11/17/14) Tobacco use (Chronic) Osteopenia (Chronic) Migraine headache (Chronic) History of Surgical Procedure (Chronic) Insomnia (Chronic) Chest pain (Acute) Medical History (Updated 09/14/21 @ 16:10 by Sona Macias NP) Atrial fibrillation lone Afib, on asa Hyperlipidemia Hypertension Pancreatitis Tobacco abuse Vertigo Surgical History (Updated 03/13/21 @ 08:37 by ANSELMO Sears) H/O bladder repair surgery H/O section History of bilateral tubal ligation History of hysterectomy History of tonsillectomy Trigger Finger release (11/12/13) R Thumb Family History (Updated 02/14/21 @ 16:59 by Marlen Kessler MD) Sister Heart disease Hypertension Sister Hypertension Brother Cancer lung cancer - associated with agent orange exposure Social History (Updated 02/14/21 @ 17:00 by Marlen Kessler MD) Smoking/Tobacco Use Status: Current-Occasional Tobacco Type: cigarettes Tobacco: How many years used: 58 Quit status: considering quitting Counseling given: provider counseling Smoking risk assessment performed?: Yes Alcohol Intake: current Alcohol Intake frequency: holidays/special occasions only Alcohol type: wine Drug use: Never Substance use type: does not use Do you feel safe at home: Yes Do you feel safe in your relationship?: Yes Meds Allergies and Home Medications Allergies Allergy/AdvReac Type Severity Reaction Status Date / Time morphine AdvReac Mild vomiting Verified 09/14/21 12:32 Home Medications Medication Instructions Recorded Confirmed Type acetaminophen [Tylenol Extra 500 mg PO PRN PRN 11/25/13 09/14/21 History Strength] metoprolol succinate 75 mg PO DAILY #45 tabcr 07/30/17 09/14/21 Rx nitroglycerin 0.4 mg SUBLINGUAL Q5 MIN PRN X3 07/30/17 09/14/21 Rx PRN #10 tab.subl albuterol sulfate 1.25 mg INHALATION Q4H PRN 01/14/19 09/14/21 History albuterol sulfate [ProAir HFA] 2 puff INHALATION QID PRN 01/14/19 09/14/21 History atorvastatin 20 mg PO DAILY 02/01/19 09/14/21 History losartan 50 mg PO DAILY 02/01/19 09/14/21 History Spiriva with HandiHaler 1 cap INHALATION DAILY 02/14/21 09/14/21 History budesonide-formoterol [Symbicort] 2 puff INHALATION BID 02/14/21 09/14/21 History lorazepam 0.25 mg PO HS 02/14/21 09/14/21 History paroxetine HCl [Paxil] 20 mg PO DAILY 02/17/21 09/14/21 History aspirin 81 mg PO BID #60 tab 02/18/21 09/14/21 Rx calcium carbonate-vitamin D3 1 tab PO BID #60 tab 02/18/21 09/14/21 Rx [Calcium 600 + D(3)] cholecalciferol (vitamin D3) 400 unit PO DAILY #30 tab 02/18/21 09/14/21 Rx [Vitamin D3] ibuprofen 600 mg PO Q8H PRN 08/18/21 09/14/21 History prednisone 0 mg PO DAILY 09/14/21 09/14/21 History Exam Const General: cooperative, no acute distress, frail appearing and ill appearing chronically Nutritional Appearance: thin Orientation: alert, awake and oriented x3 HENMT Head: normal to inspection Face and sinus: normal facial exam Eyes General: appearance normal, both eyes and all related structures EOM: EOM intact bilaterally Neck Neck: normal visual inspection Chest Chest: normal inspection of the chest and no tenderness Resp Effort & Inspection: normal respiratory effort and able to speak in complete sentences Auscultation: diminished lung sounds (throughout) bilaterally and wheezes scattered wheezes Cardio Rate: regular rate Rhythm: regular rhythm GI Inspection: normal to inspection Palpation: soft and nontender Auscultation: normal bowel sounds Skin General skin exam: no rashes or lesions noted Neuro General: patient alert, patient awake and patient oriented x3 Cognition: normal cognition Speech: speech normal Motor: muscle tone normal throughout Sensory Exam: no sensory deficits noted Extrem General: normal to inspection, full ROM, capillary refill normal, no calf tenderness bilaterally and no edema Psych Appearance: grossly normal Mental Status: mental status grossly normal Speech and Movement: speech and movement normal Affect: normal affect Results Labs Result diagrams: 09/14/21 12:25 09/14/21 12:25 Labs: Laboratory Results - last 24 hr 09/14/21 09/14/21 12:25 12:25 WBC 14.17 H RBC 4.56 Hgb 15.0 Hct 44.5 MCV 97.6 H MCH 32.9 MCHC 33.7 RDW 12.6 Plt Count 272 MPV 8.9 Immature Gran % 0.6 Neutrophils % 85.8 Lymphocytes % 9.0 Monocytes % 4.2 Eosinophils % 0.1 Basophils % 0.3 Nucleated RBC % 0 Absolute Neutrophils 12.16 H Absolute Lymphocytes 1.28 Absolute Monocytes 0.60 Absolute Eosinophils 0.01 Absolute Basophils 0.04 Sodium 136 Potassium 3.6 Chloride 99 Carbon Dioxide 27.8 Anion Gap 9.2 BUN 22 H Creatinine 1.0 Estimated GFR/1.73 m2 54.20 Glucose 117 H Calcium 8.9 Magnesium 2.1 Total Bilirubin 0.4 AST 15 ALT 18 Alkaline Phosphatase 70 Troponin I < 0.05 Total Protein 7.4 Albumin 3.4 Last Vital Signs Temp 36.6 C 09/14/21 12:25 Pulse 98 H 09/14/21 14:46 Resp 17 09/14/21 15:30 BP 169/87 H 09/14/21 14:46 Pulse Ox 96 09/14/21 15:10
[2021-09-14] MEDS: REMDESIVIR 200 MG in Normal Saline 250 ML 250 MG IVPB (16:33)
[2021-09-14] MEDS: Enoxaparin 40 MG/0.4 ML SYR SC (17:26)
[2021-09-14] MEDS: Budesonide/Formoterol 80/4.5 6.9 GM 60 PUFF INH IH (19:45)
[2021-09-14] MEDS: Calcium 600mg/Vit D 200U TAB 1 TAB PO (19:46)
[2021-09-14] MEDS: Ascorbic Acid 500 MG TAB 1000 MG PO (19:47)
[2021-09-14] MEDS: Aspirin E.C. 81 MG TABEC PO (19:47)
[2021-09-14 21:19] LABS: D-Dimer 439 ng/mlFEU (<500)
[2021-09-14 21:34] LABS: C-Reactive Protein 2.41 mg/dL (0.0-0.3); Creatine Kinase 114 U/L (26-192)
[2021-09-14] MEDS: LORazepam 0.5 MG TAB 0.25 MG PO (21:57)
[2021-09-14] MEDS: Tiotropium Bromide-Respimat 10 PUFF INH 2 PUFF IH (21:58)
[2021-09-14 21:59] LABS: Ferritin 81 ng/mL (8-252)
[2021-09-15] VITALS (7 sets, daily range): BP systolic 158–159; BP diastolic 85–91; PULSE 76–96; RESP 16–22; TEMP 35.6–36; O2SAT 90–96
[2021-09-15 07:36] LABS: Abs Immature Grans 0.06 10^3/uL (0.0-0.06); Absolute Basophil Count 0.01 10^3/uL (0.0-0.2); Basophils % 0.1; HCT 43.4 % (36.0-46.0); HGB 14.8 g/dL (11.2-15.7); Immature Grans % 0.5; Lymphocytes % 15.3; MCH 32.9 pg (27.0-33.0); MCHC 34.1 % (32.0-36.0); MCV 96.4 fL (80-95); MPV 9.1 fL (8.0-11.0); Monocytes % 8.5; Neutrophils % 75.6; Nucleated RBC 0 %; Platelet Count 257 10^3/uL (130-400); RDW 12.2 % (11.7-14.6); RDW-SD 43.7 fL; WBC 11.77 10^3/uL (4.4-10.8)
[2021-09-15 08:06] LABS: ALT 16 U/L (14-59); AST 11 U/L (15-37); Alkaline Phosphatase 62 U/L (46-116); BUN 23 mg/dL (7-18); Bilirubin, Total 0.3 mg/dL (0.2-1.0); CREATININE 0.9 mg/dL (0.55-1.02); Calcium 9.2 mg/dL (8.5-10.1); Chloride 103 mmol/L (98-107); Glucose 100 mg/dL (74-106); Potassium 4.3 mmol/L (3.5-5.1); Sodium 139 mmol/L (136-145); Total Protein 6.7 g/dL (6.4-8.2)
[2021-09-15] MEDS: Budesonide/Formoterol 80/4.5 6.9 GM 60 PUFF INH IH (08:08)
[2021-09-15] MEDS: Atorvastatin 20 MG TAB PO (08:21)
[2021-09-15] MEDS: Aspirin E.C. 81 MG TABEC PO (08:21)
[2021-09-15] MEDS: Ascorbic Acid 500 MG TAB 1000 MG PO (08:21)
[2021-09-15] MEDS: Cholecalciferol (Vitamin D3) 1,000 UNIT TAB 2000 UNITS PO (08:21)
[2021-09-15] MEDS: Calcium 600mg/Vit D 200U TAB 1 TAB PO (08:21)
[2021-09-15] MEDS: Dexamethasone 4 MG TAB 6 MG PO (08:22)
[2021-09-15] MEDS: Losartan 50 MG TAB PO (08:22)
[2021-09-15] MEDS: Metoprolol CR 50 MG TABCR 75 MG PO (08:22)
[2021-09-15] MEDS: PARoxetine 20 MG TAB PO (08:23)
[2021-09-15] MEDS: Famotidine 20 MG TAB PO (08:23)
--- NOTE | 2021-09-15 08:52 | INITIAL_ITS ---
- If Service Date Differs Date of service: 09/15/21 Time of Service: 08:52 Care Management Initial Assess REASON FOR HOSPITALIZATION:: COVID-19 Infection PAST MEDICAL HISTORY/PAST SURGICAL HISTORY:: Atrial fibrillation. lone Afib, on asa. Hyperlipidemia. Hypertension. Pancreatitis. Tobacco abuse. Vertigo. H/O bladder repair surgery. H/O section. History of bilateral tubal ligation. History of hysterectomy. History of tonsillectomy. Trigger Finger release (11/12/13). R Thumb PREVIOUS FUNCTIONAL STATUS/SOCIAL/FAMILY SUPPORTS:: Ruby resides in [place], [place], alone. She has good family support including her daughters who reside locally in [place] and [place]. Ruby reports being independent at baseline. CURRENT FUNCTIONAL STATUS:: COVID precautions. ADVANCE DIRECTIVES:: None on file. Has patient been provided with info about the portal/API?: No Did the patient sign up for the portal?: No CODE STATUS:: Full Code INSURANCE COVERAGE / FINANCIAL ISSUES:: [employer] [facility] MCR Replacement. 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 PRIMARY CARE PHYSICIAN:: Chari Abdullahi POTENTIAL DISCHARGE NEEDS:: Follow up appointments. PATIENT/FAMILY EDUCATION NEEDS:: Review discharge instructions, discuss Ask Me Three. ANTICIPATED BARRIERS TO DISCHARGE:: None identified. TRANSPORTATION:: Via private vehicle with family. PLAN:: Ruby will return home when ready per MD with no additional services at this time. She will follow up with her PCP and plan of care as prescribed. She will transport via private vehicle with family.
--- NOTE | 2021-09-15 10:29 | W.PM.DS.N ---
Date of service: 09/15/21 Time of Service: 17:15 DS: Diagnosis Discharge Diagnosis (1) COVID-19: Status: Acute (2) COPD (chronic obstructive pulmonary disease): Status: Chronic (3) Tobacco use: Status: Chronic (4) Paroxysmal atrial fibrillation: Status: Resolved (5) DVT prophylaxis: Status: Acute (6) Discharge planning issues: Status: Acute Discharge Plan Disposition Patient Disposition: HOME Condition: Stable Discharge Details Reason For Visit: Covid-19 Infection Admit Date/Time: 09/14/21 15:39 Admit Provider: Marlen Kessler Attending Provider: Marlen Kessler Primary Care Provider: Chari Abdullahi Hospital Course Hospital Course: This is a 76 year old smoker with COPD, not oxygen dependent who presented to the ED for increase SOB and hypoxia. she was diagnosed with Covid on Sep 09, starting with symptoms around thanksgi. Her work up in the ED included a chest xray which showed no infiltrates and procal negative. She did have oxygen requirements of 1 liter nc to maintain sats in the low 90's. she was given IV steroids and referred for admission for covid infection with oxygen requirements. Overnight she remained medically and hemodynamically stable. She received remdesivir in addition to the IV steroids. She was weaned off the oxygen and passed an ambulatory pulse ox test on room air, maintaining sats above 90. she is safe for discharge to home and using shared decision making will be discharged with no services. she did still have significant wheezing and will continue on a steroid taper, reset at 40 mg daily for 3 days, then 20 mg daily for 3 days, etc. discharged by ground EMS for covid positive patient with no transportation. discussed with Dr Kessler Home Meds and New Rx's Prescriptions: Continued acetaminophen [Tylenol Extra Strength] 500 MG tablet 500 mg PO PRN PRN (Reason: Pain) RF: 0 atorvastatin 20 mg Tablet 20 mg PO DAILY RF: 0 losartan 25 mg Tablet 50 mg PO DAILY RF: 0 metoprolol succinate 50 MG tablet extended release 24 hr 75 mg PO DAILY Qty: 45 RF: 0 nitroglycerin 0.4 MG tablet, sublingual 0.4 mg Sublingual Q5 MIN PRN X3 PRNQty: 10 RF: 0 albuterol sulfate 1.25 mg/3 mL Solution For Nebulization 1.25 mg INHALATION Q4H PRNRF: 0 albuterol sulfate [ProAir HFA] 90 mcg/actuation Hfa Aerosol Inhaler 2 puff INHALATION QID PRNRF: 0 Spiriva with HandiHaler 18 mcg capsule, w/inhalation device 1 cap INHALATION DAILY RF: 0 budesonide-formoterol [Symbicort] 80-4.5 mcg/actuation HFA aerosol inhaler 2 puff INHALATION BID RF: 0 lorazepam 0.5 mg Tablet 0.25 mg PO HS RF: 0 paroxetine HCl [Paxil] 20 mg Tablet 20 mg PO DAILY RF: 0 calcium carbonate-vitamin D3 [Calcium 600 + D(3)] 600 mg(1,500mg) -200 unit Tablet 1 tab PO BID Qty: 60 RF: 0 cholecalciferol (vitamin D3) [Vitamin D3] 10 mcg (400 unit) Tablet 400 unit PO DAILY Qty: 30 RF: 0 aspirin 81 mg tablet,delayed release (DR/EC) 81 mg PO BID Qty: 60 RF: 0 ibuprofen 200 mg Capsule 600 mg PO Q8H PRNRF: 0 Changed prednisone 20 mg tablet See Rx Instructions .ROUTE .COMPLEX Qty: 20 RF: 0 Discharge Instructions Instructions: COPD (Chronic Obstructive Pulmonary Disease) (DC), COVID-19 (Coronavirus Disease 2019) (DC) Additional Instructions: Please try to stop/cut back on smoking as your chronic obstructive pulmonary disease is progressive and that will speed up progression. taper steroids: prednisone 40 mg daily for 3 days, 20 mg daily for 3 days, 10 mg daily for 3 days then stop drink 6-8 glasses of water daily to stay well hydrated. Stand Alone Forms: Nursing Discharge Form Referrals: Chair Abdullahi [Primary Care Provider] - Activity:: Activity as Tolerated Equipment/Supplies:: No Equipment Needed Diet:: As Tolerated Discharge Orders Discharge Orders: Discharge Order (Routine); Ordered 09/15/21 Ordered By: Sona Macias Discharge Data Discharge Date/Time-TO BE ENTERED AT DEPARTURE: 09/15/21 14:28 DS: Summary Time Spent with Patient providing and/or coordinating discharge services: Less than 30 minutes Status at Discharge Functional status at discharge: independent ambulation Overall status at discharge: patient is progressing back to baseline Mental Status: mental status grossly normal Speech and Movement: speech and movement normal Mood: congruent mood Affect: normal affect Exam Const General: cooperative and no acute distress (speaking in full sentences, no cough) Orientation: alert, awake and oriented x3 Cardio Rate: regular rate Rhythm: regular rhythm and other (normal sinus rhythm on telemetry) Psych Mental Status: mental status grossly normal Speech and Movement: speech and movement normal Mood: congruent mood Affect: normal affect DS: Data Vitals/I&O Vitals and I&O: Vital Signs Temperature 36 C L 09/15/21 08:27 Temperature Source Tympanic 09/15/21 08:27 Pulse 86 09/15/21 08:27 Pulse Rhythm Regular 09/15/21 08:57 Pulse 84 09/14/21 16:04 Respiratory Rate 18 09/15/21 08:27 Respiratory Effort 09/15/21 08:57 Respiratory Depth Normal 09/15/21 08:57 Respiratory Pattern Normal 09/15/21 08:57 Blood Pressure 159/85 H 09/15/21 08:27 Blood Pressure Mean 145 09/14/21 16:17 Blood Pressure Position Supine 09/14/21 12:25 Pulse Oximetry 92 09/15/21 08:27 Oxygen Delivery Method Room Air 09/15/21 08:27 Oxygen Flow Rate 0 09/15/21 08:27 Pain Level 0 09/15/21 08:27 Comment 09/15/21 00:11 Intake & Output 09/14/21 09/14/21 09/15/21 11:59 23:59 11:59 Intake Total 1500 / 1500 250 / 250 Output Total 300 / 300 Balance 1500 / 1500 -50 / -50 Weight 52.617 kg Intake: IV 1250 / 1250 Oral 250 / 250 250 / 250 Output: Urine 300 / 300 Other: Urine Color Yellow Urine Appearance Clear Comment indpendant to toilet Voiding Methods Toilet Data Completed and Pending Labs on day of discharge: Labs from last 24 hours 09/15/21 09/15/21 09/14/21 07:15 07:15 20:40 WBC 11.77 H RBC 4.50 Hgb 14.8 Hct 43.4 MCV 96.4 H MCH 32.9 MCHC 34.1 RDW 12.2 Plt Count 257 MPV 9.1 Immature Gran % 0.5 Neutrophils % 75.6 Lymphocytes % 15.3 Monocytes % 8.5 Eosinophils % 0.0 Basophils % 0.1 Nucleated RBC % 0 Absolute Neutrophils 8.90 H Absolute Lymphocytes 1.80 Absolute Monocytes 1.00 H Absolute Eosinophils 0.00 Absolute Basophils 0.01 D-Dimer 439 Sodium 139 Potassium 4.3 Chloride 103 Carbon Dioxide 28.0 Anion Gap 8.0 BUN 23 H Creatinine 0.9 Estimated GFR/1.73 m2 >= 60.00 Glucose 100 Calcium 9.2 Magnesium Ferritin Pending Total Bilirubin 0.3 AST 11 L ALT 16 Alkaline Phosphatase 62 Creatine Kinase Troponin I C-Reactive Protein Pending Total Protein 6.7 Albumin 3.0 L 09/14/21 09/14/21 09/14/21 20:40 12:25 12:25 WBC 14.17 H RBC 4.56 Hgb 15.0 Hct 44.5 MCV 97.6 H MCH 32.9 MCHC 33.7 RDW 12.6 Plt Count 272 MPV 8.9 Immature Gran % 0.6 Neutrophils % 85.8 Lymphocytes % 9.0 Monocytes % 4.2 Eosinophils % 0.1 Basophils % 0.3 Nucleated RBC % 0 Absolute Neutrophils 12.16 H Absolute Lymphocytes 1.28 Absolute Monocytes 0.60 Absolute Eosinophils 0.01 Absolute Basophils 0.04 D-Dimer Sodium 136 Potassium 3.6 Chloride 99 Carbon Dioxide 27.8 Anion Gap 9.2 BUN 22 H Creatinine 1.0 Estimated GFR/1.73 m2 54.20 Glucose 117 H Calcium 8.9 Magnesium 2.1 Ferritin 81 Total Bilirubin 0.4 AST 15 ALT 18 Alkaline Phosphatase 70 Creatine Kinase 114 Troponin I < 0.05 C-Reactive Protein 2.41 H Total Protein 7.4 Albumin 3.4 PFS Active Problem List (Updated 09/15/21 @ 08:16 by Georgiana Guerra DO) COVID-19 (Acute) Hypoxia (Acute) Requires supplemental oxygen (Acute) History of COPD (Acute) COVID-19 (Acute) Hip pain, left (Acute) History of hemiarthroplasty of left hip (Acute 02/15/21) Vitamin D deficiency (Acute) Leukocytosis (Acute) COPD (chronic obstructive pulmonary disease) (Chronic) Discharge planning issues (Acute) DVT prophylaxis (Acute) Closed fracture of neck of left femur (Acute 02/14/21) Recurrent pancreatitis (Acute 11/17/14) Tobacco use (Chronic) Osteopenia (Chronic) Migraine headache (Chronic) History of Surgical Procedure (Chronic) Insomnia (Chronic) Chest pain (Acute) Medical History (Updated 09/15/21 @ 08:16 by Georgiana Guerra DO) Atrial fibrillation lone Afib, on asa Hyperlipidemia Hypertension Pancreatitis Tobacco abuse Vertigo Surgical History (Updated 03/13/21 @ 08:37 by ANSELMO Sears) H/O bladder repair surgery H/O section History of bilateral tubal ligation History of hysterectomy History of tonsillectomy Trigger Finger release (11/12/13) R Thumb Family History (Updated 02/14/21 @ 16:59 by Marlen Kessler MD) Sister Heart disease Hypertension Sister Hypertension Brother Cancer lung cancer - associated with agent orange exposure Social History (Updated 02/14/21 @ 17:00 by Marlen Kessler MD) Smoking/Tobacco Use Status: Current-Occasional Tobacco Type: cigarettes Tobacco: How many years used: 58 Quit status: considering quitting Counseling given: provider counseling Smoking risk assessment performed?: Yes Alcohol Intake: current Alcohol Intake frequency: holidays/special occasions only Alcohol type: wine Drug use: Never Substance use type: does not use Do you feel safe at home: Yes Do you feel safe in your relationship?: Yes
[2021-09-15 10:39] LABS: Ferritin 90 ng/mL (8-252)
[2021-09-15 10:57] LABS: C-Reactive Protein 2.75 mg/dL (0.0-0.3)
[2021-09-15] MEDS: Albuterol 2.5 MG/3 ML INH SOLN VIAL 1.25 MG IH (14:02)
== END 2021-09-15 14:28 | disposition home or self-care (01) | DRG 179 ==
LOC: ER 16:19 → MS 16:42
PROVIDERS: Nurse Practitioner Acute Care; Admitting Provider Internal Medicine; Emergency Provider Physician Assistant; PCP Nurse Practitioner Family; Visit Provider Internal Medicine
DX: U07.1 COVID-19 (principal); J44.9 Chronic obstructive pulmonary disease, unspecified; R09.02 Hypoxemia; I48.0 Paroxysmal atrial fibrillation; F17.210 Nicotine dependence, cigarettes, uncomplicated; E55.9 Vitamin D deficiency, unspecified; G43.909 Migraine, unspecified, not intractable, without status migrainosus; G47.00 Insomnia, unspecified
CPT/HCPCS: 36415; 80053; 82550; 93005; 94618; 94640; 96361; 96372; 96374; 96375; 99285; J1650; 71045; 82728; 83735; 84484; 85025; 85379; 86140; 93010; 94667; 99223; 99238; J2930; J7613; J7620; J8540

== ENCOUNTER 2021-09-30 10:56 | Outpatient (REF) | payer MEDICARE, SELFPAY ==
[2021-10-01 16:59] LABS: COVID-19 RT-PCR UVMMC Result Negative (Negative)
== END 2021-09-30 10:57 | disposition home or self-care (01) ==
LOC: NCHCN 10:56
PROVIDERS: PCP Nurse Practitioner Family; Visit Provider Nurse Practitioner Family
DX: J02.9 Acute pharyngitis, unspecified (principal); Z20.822 Contact with and (suspected) exposure to COVID-19
CPT/HCPCS: U0003; U0005; 87070

== ENCOUNTER 2022-02-02 16:48 | Outpatient (REF) | payer MEDICARE, SELFPAY ==
[2022-02-02 17:11] LABS: Hemoglobin A1C 6.2 % (<5.7)
[2022-02-02 17:17] LABS: ALT 21 U/L (14-59); AST 15 U/L (15-37); Albumin 3.4 g/dL (3.4-5.0); Alkaline Phosphatase 83 U/L (46-116); Anion Gap 8.5 mmol/L (3-11); BUN 19 mg/dL (7-18); Bilirubin, Total 0.3 mg/dL (0.2-1.0); CO2 26.5 mmol/L (21.0-32.0); CREATININE 0.9 mg/dL (0.55-1.02); Calcium 8.9 mg/dL (8.5-10.1); Chloride 106 mmol/L (98-107); Glucose 105 mg/dL (74-106); HDL Cholesterol 61 mg/dL (40-60); LDL CHOLESTEROL 63 mg/dL (<100); Potassium 4.8 mmol/L (3.5-5.1); Sodium 141 mmol/L (136-145); Total Protein 6.7 g/dL (6.4-8.2)
[2022-02-02 17:34] LABS: Creatine Kinase 138 U/L (26-192)
== END 2022-02-02 16:49 | disposition home or self-care (01) ==
LOC: NCHCN 16:48
PROVIDERS: PCP Nurse Practitioner Family; Visit Provider Nurse Practitioner Family
DX: I10 Essential (primary) hypertension (principal); R73.09 Other abnormal glucose; F41.8 Other specified anxiety disorders; J44.9 Chronic obstructive pulmonary disease, unspecified
CPT/HCPCS: 80053; 82550; 83721; 83036; 83718

== ENCOUNTER 2022-02-17 18:09 | Outpatient (REF) | payer MEDICARE, SELFPAY ==
[2022-02-17 19:15] LABS: Anion Gap 8.2 mmol/L (3-11); BUN 18 mg/dL (7-18); CO2 27.8 mmol/L (21.0-32.0); CREATININE 0.9 mg/dL (0.55-1.02); Calcium 9.1 mg/dL (8.5-10.1); Chloride 102 mmol/L (98-107); Glucose 110 mg/dL (74-106); Potassium 4.2 mmol/L (3.5-5.1); Sodium 138 mmol/L (136-145)
== END 2022-02-17 18:10 | disposition home or self-care (01) ==
LOC: NCHCN 18:09
PROVIDERS: PCP Nurse Practitioner Family; Visit Provider Nurse Practitioner Family
DX: I10 Essential (primary) hypertension (principal)
CPT/HCPCS: 80048

== ENCOUNTER 2022-02-25 13:28 | Outpatient (CLI) | payer MEDICARE, SELFPAY ==
--- NOTE | 2022-02-25 11:30 | DI.RAD_ITS ---
Exam(s) XR HIP LT AP LAT ONLY EXAM: XR HIP LT AP LAT ONLY CLINICAL HISTORY: ANNUAL F/U L HEMIARTHROPLASTY. TECHNIQUE: 2D digital imaging was performed of the left hip. Two views were obtained. AP and later al left hip views were obtained. COMPARISON: CR XR HIP LT AP LAT ONLY from 03/13/2021 FINDINGS: BONES: No acute fracture is present. No bony destructive lesion is seen. JOINTS: No dislocation present. There are stable postsurgical changes of a left hip replacement. SOFT TISSUE: Normal. IMPRESSION: Stable left hip replacement. DATA REPOSITORY: RADIATION DOSE DELIVERED:
== END 2022-02-25 13:29 | disposition home or self-care (01) ==
LOC: DIORS 13:29
PROVIDERS: PCP Nurse Practitioner Family; Referring Provider Nurse Practitioner Family; Visit Provider Student in an Organized Health Care Education/Training Program
DX: Z96.642 Presence of left artificial hip joint (principal)
CPT/HCPCS: 99213; 73502

== ENCOUNTER → 2022-04-07 01:21 | Outpatient (CLI) | payer MEDICARE, SELFPAY ==
--- NOTE | 2022-04-07 13:00 | DI.CTLCSR_ITS ---
Exam(s) CT CHEST LUNG CANCER SCREEN EXAM: CT CHEST LUNG CANCER SCREEN CLINICAL HISTORY: SCREENING FOR CA, CIGARETTE SMOKER, F17.210 TECHNIQUE: CT examination of the chest was performed utilizing low-dose lung cancer screening protoc . COMPARISON: CT CT CHEST LUNG CANCER SCREEN from 04/03/2021 FINDINGS: Images obtained through the upper abdomen show unremarkable appearance of visualized portions of the liver and spleen. There is a nonobstructing right renal calculus. Otherwise visualized portions of kidneys, adrenals, and pancreas appear intact. Note is made of coronary artery calcification. There is no mediastinal or hilar adenopathy. Mediastinal vascular structures appear intact by noncon trast criteria. Tracheobronchial tree appears intact. No pleural effusion or pleural-based mass. Previously described 5 millimeter right lower lobe intrapulmonary nodule appears stable. No addition al new nodules seen. Right apical pulmonary scarring noted. Severe pulmonary emphysematous changes again noted.. IMPRESSION: Stable right lower lobe pulmonary nodule. Lung RADS Cat 2 - Benign Appearance / Behavior: Nodules with a very low likelihood of becoming a clin ically active cancer due to size or lack of growth Continue annual screening with LDCT in 12 months. Lung-RADS 1.0 CATEGORIES: Category 0 - Prior chest CT exam(s) being located for comparison. Category 1 - Annual screening in 12 months. No nodules or definitely benign nodules. Category 2 - Annual screening in 12 months. Benign appearance. Nodules with low likelihood of becomin g active cancer. Category 3 - 6-month follow-up. Probably benign. Short-term follow-up suggested. Nodules with low lik elihood of becoming active cancer. Category 4A - 3-month follow-up and CT/PET if >8 mm in size. Suspicious finding. Findings which requi re additional testing. Category 4B - Findings which require additional testing and tissue sampling. Suspicious finding. Category 4X - Category 3 or 4 nodules with additional features or imaging findings that increases the suspicion of malignancy. Modifier S- Potentially clinically significant finding. (Non lung cancer) RADIATION DOSE DELIVERED: 81.18mGy.cm Total DLP 1.84mGy CTDIvol 81.18mGy.cm Total DLP !Error CTDIvol RADIATION OPTIMIZATION: All CT scans at this facility use at least one of these dose optimization te chniques: automated exposure control; mA and/or kV adjustment per patient size (includes targeted exa ms where dose is matched to clinical indication); or iterative reconstruction.
== END ==
PROVIDERS: PCP Nurse Practitioner Family; Visit Provider Nurse Practitioner Family
DX: Z12.2 Encounter for screening for malignant neoplasm of respiratory organs (principal); R91.1 Solitary pulmonary nodule; F17.210 Nicotine dependence, cigarettes, uncomplicated
CPT/HCPCS: 71271

== ENCOUNTER 2023-01-25 17:01 | Outpatient (REF) | payer MEDICARE, SELFPAY ==
[2023-01-25 16:24] LABS: Hemoglobin A1C 6.2 % (<5.7)
[2023-01-25 16:40] LABS: ALT 28 U/L (14-59); AST 21 U/L (15-37); Albumin 3.6 g/dL (3.4-5.0); Alkaline Phosphatase 104 U/L (46-116); Anion Gap 6.9 mmol/L (3-11); BUN 24 mg/dL (7-18); Bilirubin, Total 0.4 mg/dL (0.2-1.0); CO2 26.1 mmol/L (21.0-32.0); Calculated LDL 57 mg/dL (<100); Chloride 105 mmol/L (98-107); Cholesterol 140 mg/dL (<200); Creatine Kinase 108 U/L (26-192); Estimated GFR 58.75 (mL/min/1.73m2); Glucose 108 mg/dL (74-106); HDL Cholesterol 70 mg/dL (40-60); Potassium 5.1 mmol/L (3.5-5.1); Sodium 138 mmol/L (136-145); Total Protein 7.4 g/dL (6.4-8.2); Triglyceride 66 mg/dL (<150)
== END 2023-01-25 17:02 | disposition home or self-care (01) ==
LOC: NCHCN 17:01
PROVIDERS: PCP Nurse Practitioner Family; Visit Provider Nurse Practitioner Family
DX: E78.5 Hyperlipidemia, unspecified (principal); I10 Essential (primary) hypertension; R73.9 Hyperglycemia, unspecified
CPT/HCPCS: 80053; 80061; 82550; 83036

== ENCOUNTER 2023-01-27 03:02 | Outpatient (CLI) | payer MEDICARE, SELFPAY ==
--- NOTE | 2023-01-27 | DI.MAMMO_ITS ---
Exam(s) MAMMO SCREENING EXAM: MAMMO SCREENING CLINICAL HISTORY: SCREENING, Z12.39 TECHNIQUE: Mammograms were interpreted according to the usual protocol including computer analysis w [employer] CAD system, tomosynthesis and C-view imaging. COMPARISON: 2013 through 2020 FINDINGS: The breasts are composed of scattered fibroglandular densities, Breast Density category B. No suspicious masses or suspicious microcalcifications are seen. No skin thickening or abnormal axillary lymph nodes are seen. There has been no significant change from prior exams. IMPRESSION: BI-RADS Category 1, Negative mammogram Yearly screening mammography is recommended. Breast Density - Category B, scattered fibroglandular densities. A negative radiographic report should not delay biopsy if a dominant or clinically suspicious mass is present. Up to ten percent of cancers are not identified on mammography. A negative report may reinforce clinical impression. Adenosis and dense breasts may obscure an underlying neoplasm. False positive reports average 6 to 10%. Patient will receive a letter notifying them of these results.
== END 2023-01-27 03:22 ==
LOC: DI 03:03
PROVIDERS: PCP Nurse Practitioner Family; Visit Provider Nurse Practitioner Family
DX: Z12.31 Encounter for screening mammogram for malignant neoplasm of breast (principal)
CPT/HCPCS: 77063; 77067

== ENCOUNTER 2023-05-09 01:13 | Outpatient (CLI) | payer MEDICARE, SELFPAY ==
--- NOTE | 2023-05-09 15:40 | DI.CTLCSR_ITS ---
Exam(s) CT CHEST LUNG CANCER SCREEN EXAM: CT CHEST LUNG CANCER SCREEN CLINICAL HISTORY: CIGARETTE SMOKER, F17.210, SCREENING FOR LUNG CANCER. TECHNIQUE: Imaging Protocol: Low Dose Technique CONTRAST MATERIAL: None COMPARISON: CT CT CHEST LUNG CANCER SCREEN from 04/07/2022 FINDINGS: CHEST: LUNGS: Again noted are severe COPD changes-emphysematous findings. The previously described right lo wer lobe nodule is again noted, still measuring 5 mm, unchanged. Another unchanged round 3 millimete r nodules also again noted in the right lower lobe. There are no new right lung nodules.. There are no confluent infiltrates. No new focal left lung findings. No pleural effusions on either side. MEDIASTINUM: There is no obvious hilar nor mediastinal adenopathy. CARDIAC: Heart size is normal. There is no pericardial effusion.Caliber of the thoracic aorta is wit hin normal limits. OTHER: There is excavatum again noted. OSSEOUS: No significant osseous lesions.No fractures.. IMPRESSION: 1. Stable appearance of previously described 5 mm right lower lobe nodule as well as also stable appe arance of another smaller round benign-appearing nodule in the right lower lobe. 2. There are no new nodules, new infiltrates, nor pleural effusions. 3. Lung RADS Cat 2 - Benign Appearance / Behavior: Nodules with a very low likelihood of becoming a c linically active cancer due to size or lack of growth Lung-RADS 1.0 CATEGORIES: Category 0 - Prior chest CT exam(s) being located for comparison. Category 1 - Annual screening in 12 months. No nodules or definitely benign nodules. Category 2 - Annual screening in 12 months. Benign appearance. Nodules with low likelihood of becomin g active cancer. Category 3 - 6-month follow-up. Probably benign. Short-term follow-up suggested. Nodules with low lik elihood of becoming active cancer. Category 4A - 3-month follow-up and CT/PET if >8 mm in size. Suspicious finding. Findings which requi re additional testing. Category 4B - Findings which require additional testing and tissue sampling. Category 4X - Category 3 or 4 nodules with additional features or imaging findings that increases the suspicion of malignancy. Modifier S- Potentially clinically significant findings (non lung cancer) RADIATION DOSE DELIVERED: 83.58mGy.cm Total DLP DATA REPOSITORY: All CT scans at this facility are submitted to the National Radiology Data Registry (NRDR) Dose Index Registry (DIR) with the [employer] ([employer]). RADIATION OPTIMIZATION: All CT scans at this facility use at least one of these dose optimization te chniques: automated exposure control; mA and/or kV adjustment per patient size (includes targeted exa ms where dose is matched to clinical indication); or iterative reconstruction.
== END 2023-05-09 01:33 ==
LOC: DI 01:14
PROVIDERS: PCP Nurse Practitioner Family; Visit Provider Nurse Practitioner Family
DX: F17.210 Nicotine dependence, cigarettes, uncomplicated (principal); Z12.2 Encounter for screening for malignant neoplasm of respiratory organs; R91.1 Solitary pulmonary nodule
CPT/HCPCS: 71271

== ENCOUNTER 2024-01-23 15:56 | Outpatient (REF) | payer MEDICARE, SELFPAY ==
[2024-01-23 17:00] LABS: Hemoglobin A1C 6.2 % (<5.7)
[2024-01-23 17:07] LABS: ALT 23 U/L (14-59); AST 18 U/L (15-37); Albumin 3.3 g/dL (3.4-5.0); Alkaline Phosphatase 128 U/L (46-116); Anion Gap 7.5 mmol/L (3-11); BUN 21 mg/dL (7-18); Bilirubin, Total 0.6 mg/dL (0.2-1.0); CO2 26.5 mmol/L (21.0-32.0); CREATININE 0.9 mg/dL (0.55-1.02); Calcium 8.9 mg/dL (8.5-10.1); Chloride 105 mmol/L (98-107); Creatine Kinase 89 U/L (26-192); Estimated GFR 66.26 (mL/min/1.73m2); Glucose 112 mg/dL (74-106); HDL Cholesterol 69 mg/dL (40-60); LDL CHOLESTEROL 52 mg/dL (<100); Sodium 139 mmol/L (136-145); Total Protein 7.1 g/dL (6.4-8.2)
== END 2024-01-23 15:57 | disposition home or self-care (01) ==
LOC: NCHCN 15:56
PROVIDERS: PCP Nurse Practitioner Family; Visit Provider Nurse Practitioner Family
DX: I10 Essential (primary) hypertension (principal); E78.5 Hyperlipidemia, unspecified; R73.09 Other abnormal glucose
CPT/HCPCS: 80053; 82550; 83721; 83036; 83718

== ENCOUNTER → 2024-04-02 13:41 | Outpatient (BNVA) | payer MEDICARE, SELFPAY | PROVIDERS: PCP Nurse Practitioner Family; Referring Provider Nurse Practitioner Family; Visit Provider Physician Assistant Surgical | DX: J44.9 Chronic obstructive pulmonary disease, unspecified (principal); J96.11 Chronic respiratory failure with hypoxia; F17.210 Nicotine dependence, cigarettes, uncomplicated | CPT/HCPCS: 94618; 99215 ==

== ENCOUNTER 2024-04-10 03:40 | Outpatient (CLI) | payer MEDICARE, SELFPAY ==
[2024-04-10] MEDS: Levalbuterol HFA 15 GM INH 4 PUFF IH (16:12)
[2024-04-10] MEDS: Inhaler, Assist Device 1 EACH MC (16:12)
--- NOTE | 2024-04-17 09:54 | W.PFT ---
Date of service: 04/10/24 Time of Service: 15:01 Pulmonary Function Test Result Requesting Provider Parisa Lino Indications: COPD Interpretation Spirometry: abnormal Lung Volumes: normal Diffusion Capacity: abnormal Impression Mild obstructive ventilatory defect w/ no reversibility after albuterol.. Normal lung volumes w/ no air trapping. Mild decrease in diffusion. Flow volume curve suggests obstruction Clinical Correlation therefore is recommended.
== END 2024-04-10 03:41 | disposition home or self-care (01) ==
LOC: RT 03:40
PROVIDERS: PCP Nurse Practitioner Family; Visit Provider Physician Assistant Surgical
DX: J44.9 Chronic obstructive pulmonary disease, unspecified (principal)
CPT/HCPCS: 00123; 94060; 94726; 94729

== ENCOUNTER 2024-05-08 18:17 | Emergency (ER) | payer MEDICARE, SELFPAY ==
[2024-05-08] VITALS (42 sets, daily range): BP systolic 130–230; BP diastolic 45–78; PULSE 67–98; RESP 12–27; TEMP 36.2–36.5; O2SAT 89–100
--- NOTE | 2024-05-08 18:15 | RT.EKG_ITS ---
APPROVED REPORT Exam: Resting ECG Reason for Exam: sob Patient Location: E HR:77 bpm ECG Measurements Heart Rate 77 AXIS [place] 192 P 67 QRSd 77 QRS 3 QT 389 T 35 QTc 439 Conclusion Sinus rhythm...normal P axis, V-rate 60- 99 Left atrial enlargement...P, P'>60mS, <-0.15mV V1 Probable anterior infarct, old...Q >40mS, V2-V5 sinus rhtyhm, normal axis, normal intervals, non ischemic
--- NOTE | 2024-05-08 18:31 | ED.GENADUL_ITS ---
Discharge Plan Discharge Details Chief Complaint: Headache Primary Care Provider: Chari Ortega ED Provider: Linda Diaz Home Meds and New Rx's Prescriptions: New ipratropium-albuterol 0.5 mg-3 mg(2.5 mg base)/3 mL solution for nebulization 3 ml inhalation Q6H PRNQty: 90 0RF prednisone 20 mg tablet 20 mg PO DAILY Qty: 7 0RF Continued metoprolol succinate 50 mg tablet extended release 24 hr 50 mg PO DAILY Patient Comments: changed to 50 mg daily. 01/25/18 TB aspirin 81 mg tablet,delayed release (DR/EC) 81 mg PO DAILY loratadine [Claritin] 10 mg tablet 10 mg PO DAILY Trelegy Ellipta 100-62.5-25 mcg blister with device 1 inh inhalation DAILY acetaminophen [Tylenol Extra Strength] 500 MG tablet 500 mg PO PRN PRN (Reason: Pain) atorvastatin 20 mg Tablet 20 mg PO DAILY losartan 25 mg Tablet 50 mg PO DAILY nitroglycerin 0.4 MG tablet, sublingual 0.4 mg Sublingual Q5 MIN PRN X3 PRNQty: 10 0RF albuterol sulfate 1.25 mg/3 mL Solution For Nebulization 1.25 mg INHALATION Q4H PRN albuterol sulfate [ProAir HFA] 90 mcg/actuation Hfa Aerosol Inhaler 2 puff INHALATION QID PRN lorazepam 0.5 mg Tablet 0.25 mg PO HS Rx Instructions: HALF A TABLET HS DAILY paroxetine HCl [Paxil] 20 mg Tablet 20 mg PO DAILY calcium carbonate-vitamin D3 [Calcium 600 + D(3)] 600 mg(1,500mg) -200 unit Tablet 1 tab PO BID Qty: 60 0RF cholecalciferol (vitamin D3) [Vitamin D3] 10 mcg (400 unit) Tablet 400 unit PO DAILY Qty: 30 0RF ibuprofen 200 mg Capsule 600 mg PO Q8H PRN HPI General Date/Time Provider Initiated Documentation: 05/08/24 18:17 . HPI Narrative: Ruby is a 79-year-old female with history of COPD, A-fib on metoprolol (no anticoagulation, only baby ASA), HTN, and migraine headaches who presents to the emergency department for evaluation of sudden onset of headache with nausea/vomiting and shortness of breath. She reports that she woke up around 1 AM with a severe frontal headache rated 9 out of 10. She has vomited 3 times since onset. This is accompanied by a feeling of shortness of breath and wheezing, she says she has had wheezing for the last 5 days and has been using her albuterol with minimal improvement in symptoms. She denies vision change, dizziness, sore throat, change in baseline cough, chest pain, abdominal pain, change in bowel or bladder function, weakness. She did vomit up her medications this morning, including her antihypertensives and Tylenol/ibuprofen for headache. She does report that she has a history of migraines, last was 1 year ago. She says that these have woken her up from sleep for. Physical exam remarkable for tacky mucous membranes and slightly increased work of breathing. Faint end expiratory wheezes heard on auscultation. Normal heart sounds. Cranial nerves II through XII intact as tested. PERRL, EOMs intact. 5 out of 5 muscle strength upper and lower extremities. Abdomen is soft, nondistended, nontender to palpation. No pedal edema or calf redness or swelling noted. DDx includes but is not limited to: Intracranial hemorrhage, migraine headache, dehydration, electrolyte imbalance, COPD exacerbation, pneumonia, viral illness, ACS less likely based on lack of chest pain I independently interpreted the following tests: EKG reassuring, normal sinus rhythm rate 77, no changes consistent with acute ischemia. Chest x-ray reassuring, no acute cardiopulmonary processes. This confirmed by radiologist. CBC notable for mild leukocytosis, white cell count 11.39. CMP reassuring. Magnesium slightly low at 1.6. Serial troponins negative. COVID/flu/RSV negative. Head CT unremarkable While in the emergency department Ruby received a DuoNeb with full resolution of her wheezing. She reports that she has been using her albuterol nebulizer at home, says she has used DuoNebs previously. A migraine cocktail was also given, Reglan, Toradol, Benadryl, and IV fluids. She reports improvement in headache. She says that her headache and nausea/vomiting was similar to previous headaches in the past, says she has not been diagnosed with migraines previously but says that the description fits. It is usually accompanied by photophobia and phonophobia as well. After receiving medications, Ruby was able to ambulate normally without any dizziness. Workup today very reassuring, consistent with migraine headache and COPD exacerbation. Recommend prednisone, DuoNebs, and close follow-up with PCP. She is agreeable with plan of care. Reviewed red flags indicating need for return to emergency care. Related Data Home Medications ?Medication ?Instructions ?Recorded ?Confirmed acetaminophen 500 mg tablet 500 mg PO PRN PRN Pain 11/25/13 05/08/24 (Tylenol Extra Strength) nitroglycerin 0.4 mg sublingual 0.4 mg sublingual Q5 MIN PRN X3 07/30/17 0 05/08/24 tablet PRN ##10 albuterol sulfate 1.25 mg/3 mL 1.25 mg inhalation Q4H PRN 01/14/19 05/08/24 solution for nebulization albuterol sulfate 90 mcg/actuation 2 puff inhalation QID PRN 01/14/19 05/08/24 aerosol inhaler (ProAir HFA) atorvastatin 20 mg tablet 20 mg PO DAILY 02/01/19 05/08/24 losartan 25 mg tablet 50 mg PO DAILY 02/01/19 05/08/24 lorazepam 0.5 mg tablet 0.25 mg PO HS 02/14/21 05/08/24 paroxetine HCl 20 mg tablet (Paxil) 20 mg PO DAILY 02/17/21 05/08/24 calcium carbonate 600 mg-vitamin 1 tab PO BID #60 tabs 02/18/21 05/08/24 D3 5 mcg (200 unit) tablet (Calcium 600 + D(3)) cholecalciferol (vitamin D3) 10 400 unit PO DAILY #30 tabs 02/18/21 05/08/24 mcg (400 unit) tablet (Vitamin D3) ibuprofen 200 mg capsule 600 mg PO Q8H PRN 08/18/21 05/08/24 aspirin 81 mg tablet,delayed 81 mg PO DAILY 03/13/24 05/08/24 release fluticasone fur. 100 mcg-umeclid 1 inh inhalation DAILY 03/13/24 05/08/24 62.5 mcg-vilant 25 mcg inhalat.powder (Trelegy Ellipta) loratadine 10 mg tablet (Claritin) 10 mg PO DAILY 03/13/24 05/08/24 metoprolol succinate 50 mg 50 mg PO DAILY 04/02/24 05/08/24 tablet,extended release 24 hr ipratropium 0.5 mg-albuterol 3 mg 3 ml inhalation Q6H PRN #90 mL 05/08/24 (2.5 mg base)/3 mL nebulization soln prednisone 20 mg tablet 20 mg PO DAILY #7 tabs 05/08/24 Previous Rx's ?Medication ?Instructions ?Recorded nitroglycerin 0.4 mg sublingual 0.4 mg sublingual Q5 MIN PRN X3 07/30/17 tablet PRN ##10 calcium carbonate 600 mg-vitamin 1 tab PO BID #60 tabs 02/18/21 D3 5 mcg (200 unit) tablet (Calcium 600 + D(3)) cholecalciferol (vitamin D3) 10 400 unit PO DAILY #30 tabs 02/18/21 mcg (400 unit) tablet (Vitamin D3) ipratropium 0.5 mg-albuterol 3 mg 3 ml inhalation Q6H PRN #90 mL 05/08/24 (2.5 mg base)/3 mL nebulization soln prednisone 20 mg tablet 20 mg PO DAILY #7 tabs 05/08/24 Allergies Allergy/AdvReac Type Severity Reaction Status Date / Time morphine AdvReac Mild vomiting Verified 05/08/24 18:26 General Stated Complaint: Headache SEAMUS: 3 Review of Systems Narrative: see HPI Exam Const General: cooperative, comfortable, no acute distress and well developed Nutritional Appearance: average body habitus HENMT Head: normal to inspection Face and sinus: dry mucous membranes Mouth: oropharynx normal and no muffled voice Resp Effort & Inspection: no cough and uses accessory muscles Auscultation: wheezes expiratory wheezes Cardio Rate: regular rate Rhythm: regular rhythm GI Inspection: normal to inspection and non-distended Palpation: soft and nontender Auscultation: normal bowel sounds Extrem General: normal to inspection, no pedal edema, no calf tenderness and normal gait Course Vital Signs Vital signs: Vital Signs Temperature 36.5 C 05/08/24 18:15 Pulse 82 05/08/24 18:15 Respiratory Rate 12 05/08/24 18:15 Blood Pressure 215/69 H 05/08/24 18:15 Pulse Oximetry 96 05/08/24 18:15 Temperature 36.5 C 05/08/24 18:15 Temperature Source Skin 05/08/24 18:15 Pulse 82 05/08/24 18:15 Respiratory Rate 12 05/08/24 18:15 Respiratory Effort Normal, Non-Labored, Short of Breath 05/08/24 18:22 Blood Pressure 215/69 H 05/08/24 18:15 Blood Pressure Position Supine 05/08/24 18:15 Pulse Oximetry 96 05/08/24 18:15 Oxygen Delivery Method Room Air 05/08/24 18:15 Oxygen Flow Rate 0 05/08/24 18:15 Pain Level 9 05/08/24 18:22 Medical Decision Making Imaging Data Radiologic Study: Radiologist's impression: PROCEDURE INFORMATION: Exam: CT Head Without Contrast Exam date and time: 05/08/2024 7:21 PM Age: 79 years old Clinical indication: Pain; Headache not specified TECHNIQUE: Imaging protocol: Computed tomography of the head without contrast. Radiation optimization: All CT scans at this facility use at least one of these dose optimization techniques: automated exposure control; mA and/or kV adjustment per patient size (includes targeted exams where dose is matched to clinical indication); or iterative reconstruction. COMPARISON: CTA BRAIN 07/22/2017 2:12 PM FINDINGS: Brain: Age-related involutional changes and chronic microvascular ischemic disease. No evidence for acute transcortical infarct. No mass effect or midline shift. No extra-axial collection. No acute intracranial hemorrhage. Basal cisterns are patent. Cerebral ventricles: No ventriculomegaly. Paranasal sinuses: Complete mucosal thickening of the maxillary sinuses. Mastoid air cells: Visualized mastoid air cells are well aerated. Bones: Unremarkable. No acute fracture. Soft tissues: Unremarkable. IMPRESSION: No hydrocephalus, acute intracranial hemorrhage, or mass effect Quality:SDOH Health Related Social Needs: No Data to Display PFSH All Active Problems (Updated 04/12/24 @ 00:05 by BLANCA AHRO) Chronic hypoxic respiratory failure (Acute) Hyperglycemia (Acute) Dysphonia (Acute) Essential hypertension (Acute) Anxiety disorder (Acute) Anemia (Chronic) Melanocytic nevus (Acute) History of COPD (Acute) Requires supplemental oxygen (Acute) Hypoxia (Acute) COVID-19 (Acute) COVID-19 (Acute) Hip pain, left (Acute) History of hemiarthroplasty of left hip (Acute 02/15/21) Vitamin D deficiency (Acute) Leukocytosis (Acute) COPD (chronic obstructive pulmonary disease) (Chronic) Discharge planning issues (Acute) DVT prophylaxis (Acute) Closed fracture of neck of left femur (Acute 02/14/21) Recurrent pancreatitis (Acute 11/17/14) Tobacco use (Chronic) Osteopenia (Chronic) Migraine headache (Chronic) History of Surgical Procedure (Chronic) a. Left shoulder surgery. b. Cyst removed from index finger. c. Trigger thumb. Insomnia (Chronic) Chest pain (Acute) Medical History (Updated 04/12/24 @ 00:05 by BLANCA HARO) History of psychiatric disorder Vertigo Hyperlipidemia Hypertension Tobacco abuse Pancreatitis Atrial fibrillation lone Afib, on asa Surgical History (Updated 03/13/21 @ 08:37 by ANSELMO Sears) H/O section History of hysterectomy History of bilateral tubal ligation History of tonsillectomy H/O bladder repair surgery Trigger Finger release (11/12/13) R Thumb Family History (Updated 03/13/24 @ 12:46 by Yesi Chaudhary) Sister Heart disease Hypertension Sister Hypertension Brother Cancer lung cancer - associated with agent orange exposure Mother , age 93 Broken hip Father Cancer Social History (Updated 03/13/24 @ 12:44 by Yesi Chaudhary) Smoking/Tobacco Use Status: Current every day Tobacco Type: cigarettes Tobacco: How many years used: 58 Quit status: considering quitting Counseling given: provider counseling Smoking risk assessment performed?: Yes Alcohol Intake: current Alcohol Intake frequency: holidays/special occasions only Alcohol type: wine Drug use: Never Substance use type: does not use Housing: house Do you feel safe at home: Yes Do you feel safe in your relationship?: Yes
[2024-05-08] MEDS: Normal Saline 1,000 ML 1000 ML IV (18:41)
[2024-05-08 18:42] LABS: Abs Immature Grans 0.05 10^3/uL (0.0-0.06); Absolute Eosinophil Count 0.25 10^3/uL (0.0-0.7); Absolute Lymphocyte Count 1.25 10^3/uL (1.2-3.4); Basophils % 1.8 %; Eosinophils % 2.2 %; HCT 44.4 % (36.0-46.0); HGB 15.8 g/dL (11.2-15.7); Immature Grans % 0.4 %; MCH 32.7 pg (27.0-33.0); MCHC 35.6 % (32.0-36.0); MCV 92 fL (80-95); MPV 9.4 fL (8.0-11.0); Monocytes % 5.4 %; Neutrophils % 79.2 %; Platelet Count 263 10^3/uL (130-400); RBC 4.83 10^6/uL (3.93-5.22); RDW-SD 40.6 fL; WBC 11.39 10^3/uL (4.4-10.8)
[2024-05-08] MEDS: Losartan 25 MG TAB 50 MG PO (18:42)
[2024-05-08] MEDS: Ketorolac 15 MG/ML VIAL IVP (18:42)
[2024-05-08] MEDS: Metoprolol CR 50 MG TABCR PO (18:42)
[2024-05-08 18:44] LABS: Absolute Basophil Count 0.21 10^3/uL (0.0-0.2); Absolute Monocyte Count 0.62 10^3/uL (0.1-0.8); Absolute Neutrophil Count 9.02 10^3/uL (1.2-6.7)
[2024-05-08] MEDS: diphenhydrAMINE 50 MG/ML VIAL 25 MG IVP (18:44)
[2024-05-08] MEDS: Metoclopramide 10 MG/2 ML VIAL IVP (18:47)
[2024-05-08] MEDS: Albuterol/Ipratropium 3 ML UPD VIAL UPD (18:48)
[2024-05-08 19:06] LABS: ALT 23 U/L (14-59); AST 19 U/L (15-37); Albumin 3.6 g/dL (3.4-5.0); Alkaline Phosphatase 127 U/L (46-116); BUN 13 mg/dL (7-18); Bilirubin, Total 0.63 mg/dL (0.2-1.0); CREATININE 0.8 mg/dL (0.55-1.02); Calcium 9.1 mg/dL (8.5-10.1); Chloride 97 mmol/L (98-107); Estimated GFR 75.84 (mL/min/1.73m2); Glucose 119 mg/dL (74-106); Magnesium 1.6 mg/dL (1.8-2.4); Potassium 4.1 mmol/L (3.5-5.1); Sodium 133 mmol/L (136-145); Total Protein 7.4 g/dL (6.4-8.2); Troponin I < 50 ng/L (< or =60)
--- NOTE | 2024-05-08 19:30 | DI.CT_ITS ---
Exam(s) CT HEAD WO EXAM: CT HEAD WO CLINICAL HISTORY: frontal headache, sudden onset, woke from sleep. TECHNIQUE: Imaging Protocol: Axial computed tomography images with coronal and sagittal reformatted images were created and reviewed COMPARISON: CT CTA BRAIN from 07/22/2017 CT HEAD WITHOUT CONTRAST from 07/22/2017 FINDINGS: Ventricles and Extra axial spaces: Normal in size and morphology for the patient's age. Hemorrhage: None. Cerebral parenchyma: No evidence of acute infarct or mass. Minimal white matter changes likely refl ecting small vessel changes. Midline shift: None. Brainstem/Cerebellum: Normal. Calvarium: Normal. Visualized Paranasal sinuses:Complete opacification of both maxillary sinuses. Mild ethmoid disease. Mastoids: Clear. Soft Tissues: Unremarkable. ORBITS: Unremarkable. PITUITARY: Not enlarged. IMPRESSION: No acute intracranial process. RADIATION DOSE DELIVERED: Total DLP DATA REPOSITORY: All CT scans at this facility are submitted to the National Radiology Data Registry (NRDR) Dose Index Registry (DIR) with the [employer] (ACR). RADIATION OPTIMIZATION: All CT scans at this facility use at least one of these dose optimization te chniques: automated exposure control; mA and/or kV adjustment per patient size (includes targeted exa ms where dose is matched to clinical indication); or iterative reconstruction.
--- NOTE | 2024-05-08 19:39 | DI.VRAD_ITS ---
PROCEDURE INFORMATION: Exam: CT Head Without Contrast Exam date and time: 05/08/2024 7:21 PM Age: 79 years old Clinical indication: Pain; Headache not specified TECHNIQUE: Imaging protocol: Computed tomography of the head without contrast. Radiation optimization: All CT scans at this facility use at least one of these dose optimization techniques: automated exposure control; mA and/or kV adjustment per patient size (includes targeted exams where dose is matched to clinical indication); or iterative reconstruction. COMPARISON: CTA BRAIN 07/22/2017 2:12 PM FINDINGS: Brain: Age-related involutional changes and chronic microvascular ischemic disease. No evidence for acute transcortical infarct. No mass effect or midline shift. No extra-axial collection. No acute intracranial hemorrhage. Basal cisterns are patent. Cerebral ventricles: No ventriculomegaly. Paranasal sinuses: Complete mucosal thickening of the maxillary sinuses. Mastoid air cells: Visualized mastoid air cells are well aerated. Bones: Unremarkable. No acute fracture. Soft tissues: Unremarkable. IMPRESSION: No hydrocephalus, acute intracranial hemorrhage, or mass effect. Dictated and Authenticated by: Nico Scales MD. Ordering:ROSCOE Mckeon MD
[2024-05-08 19:43] LABS: COVID-19 PCR Negative (Negative); Influenza A PCR Negative (Negative); Influenza B PCR Negative (Negative); RSV PCR Negative (Negative)
[2024-05-08 19:45] LABS: Source Nasopharynx
--- NOTE | 2024-05-08 20:01 | DI.RAD_ITS ---
Exam(s) XR CHEST 2V PA LATERAL EXAM: XR CHEST 2V PA LATERAL CLINICAL HISTORY: SOB TECHNIQUE: 2D digital imaging was performed. Two views. COMPARISON: No exams were available for comparison FINDINGS: HEART: Normal size. Aorta: Not dilated. Calcification at arch. PULMONARY VASCULATURE: Normal. MEDIASTINUM: Unremarkable. LUNGS: Emphysematous changes, otherwise clear. PLEURAL SPACE: No pleural effusion or pneumothorax. BONE:Unremarkable pectus excavatum deformity. SOFT TISSUES: Unremarkable. IMPRESSION: No acute abnormality. DATA REPOSITORY: RADIATION DOSE DELIVERED:
--- NOTE | 2024-05-08 20:32 | DI.VRAD_ITS ---
PROCEDURE INFORMATION: Exam: XR Chest Exam date and time: 05/08/2024 7:30 PM Age: 79 years old Clinical indication: Shortness of breath; Patient HX: SOB TECHNIQUE: Imaging protocol: Radiologic exam of the chest. Views: 2 views. COMPARISON: CT CHEST LUNG CANCER SCREEN 05/09/2023 3:35 PM FINDINGS: Lungs: Mild pulmonary hyperexpansion, compatible with chronic obstructive pulmonary physiologic changes. No focal consolidation or pulmonary nodules. No pulmonary edema. Pleural spaces: Unremarkable. No pleural effusion. No pneumothorax. Heart/Mediastinum: Normal. Vasculature: Atherosclerotic vascular disease. Bones/joints: Multilevel thoracic spine degenerative disc space narrowing. IMPRESSION: No acute cardiopulmonary abnormality. Dictated and Authenticated by: Jose Wesley MD. Ordering:ROSCOE Mckeon MD
[2024-05-08 22:02] LABS: Troponin I < 50 ng/L (< or =60)
[2024-05-08] MEDS: predniSONE 20 MG TAB 40 MG PO (22:45)
--- NOTE | 2024-05-09 01:03 | NUR.NOTE ---
Pt referral sent to PCP Chari Abdullahi for COPD exacerbation ER provider would like pt to be seen within 1 week.
== END 2024-05-08 22:45 | disposition home or self-care (01) ==
PROVIDERS: Emergency Provider Nurse Practitioner Family; PCP Nurse Practitioner Family
DX: R51.9 Headache, unspecified (principal); R11.2 Nausea with vomiting, unspecified; R06.02 Shortness of breath; I10 Essential (primary) hypertension; E78.5 Hyperlipidemia, unspecified; I48.91 Unspecified atrial fibrillation; J44.9 Chronic obstructive pulmonary disease, unspecified; F17.210 Nicotine dependence, cigarettes, uncomplicated; Z79.82 Long term (current) use of aspirin
CPT/HCPCS: 36415; 80053; 87637; 93005; 94640; 96361; 96374; 96375; 99285; 70450; 71046; 83735; 84484; 85025; 93010; 99284; J1200; J1885; J2765; J7512; J7620

== ENCOUNTER 2024-06-19 17:27 | Outpatient (REF) | payer MEDICARE, SELFPAY ==
[2024-06-19 19:21] LABS: Anion Gap 7.6 mmol/L (3-11); BUN 18 mg/dL (7-18); CO2 28.4 mmol/L (21.0-32.0); CREATININE 0.8 mg/dL (0.55-1.02); Calcium 9.2 mg/dL (8.5-10.1); Chloride 104 mmol/L (98-107); Estimated GFR 75.84 (mL/min/1.73m2); Glucose 119 mg/dL (74-106); Magnesium 1.8 mg/dL (1.8-2.4); Potassium 3.9 mmol/L (3.5-5.1); Sodium 140 mmol/L (136-145)
[2024-06-19 19:33] LABS: Hemoglobin A1C 6.2 % (<5.7)
== END 2024-06-19 17:28 | disposition home or self-care (01) ==
LOC: NCHCN 17:27
PROVIDERS: PCP Nurse Practitioner Family; Visit Provider Physician Assistant Medical
DX: E83.42 Hypomagnesemia (principal); R73.03 Prediabetes; I48.0 Paroxysmal atrial fibrillation
CPT/HCPCS: 80048; 83036; 83735

== ENCOUNTER 2024-06-28 01:35 | Outpatient (CLI) | payer MEDICARE, SELFPAY ==
--- NOTE | 2024-06-28 07:15 | DI.CTLCSR_ITS ---
Exam(s) CT CHEST LUNG CANCER SCREEN EXAM: CT CHEST LUNG CANCER SCREEN CLINICAL HISTORY: Screening for lung cancer NICOTINE DEPENDENCE [id number]. TECHNIQUE: Imaging Protocol: Low Dose Technique CONTRAST MATERIAL: None COMPARISON: CT CT CHEST LUNG CANCER SCREEN from 05/09/2023 FINDINGS: CHEST: LUNGS: Again noted are severe COPD-emphysematous changes in the lung paula. The previously describe d 5 mm nodule in the right lower lobe appears stable. The other smaller 3 millimeter nodule in the r ight lower lobe also appears stable. There are no new right lung nodules. No new significant left l gertrude nodules. No new findings in the trachea mainstem bronchi. No pleural effusions. MEDIASTINUM: There is no obvious hilar nor mediastinal adenopathy. Pectus excavatum again noted. CARDIAC: Heart size is normal. There is no pericardial effusion.Caliber of the thoracic aorta is wit hin normal limits. OTHER: OSSEOUS: No significant osseous lesions.. No fractures. IMPRESSION: 1. Continued stable appearance of the 2 previously described right lower lobe nodules. 2. No new significant nodules, new infiltrates, nor pleural effusions. 3. Lung RADS Cat 2 - Benign Appearance / Behavior: Nodules with a very low likelihood of becoming a c linically active cancer due to size or lack of growth Lung-RADS 1.0 CATEGORIES: Category 0 - Prior chest CT exam(s) being located for comparison. Category 1 - Annual screening in 12 months. No nodules or definitely benign nodules. Category 2 - Annual screening in 12 months. Benign appearance. Nodules with low likelihood of becomin g active cancer. Category 3 - 6-month follow-up. Probably benign. Short-term follow-up suggested. Nodules with low lik elihood of becoming active cancer. Category 4A - 3-month follow-up and CT/PET if >8 mm in size. Suspicious finding. Findings which requi re additional testing. Category 4B - Findings which require additional testing and tissue sampling. Category 4X - Category 3 or 4 nodules with additional features or imaging findings that increases the suspicion of malignancy. Modifier S- Potentially clinically significant findings (non lung cancer) RADIATION DOSE DELIVERED: 21.73mGy.cm Total DLP DATA REPOSITORY: All CT scans at this facility are submitted to the National Radiology Data Registry (NRDR) Dose Index Registry (DIR) with the [employer] (ACR). RADIATION OPTIMIZATION: All CT scans at this facility use at least one of these dose optimization te chniques: automated exposure control; mA and/or kV adjustment per patient size (includes targeted exa ms where dose is matched to clinical indication); or iterative reconstruction.
== END 2024-06-28 01:55 ==
LOC: DI 01:35
PROVIDERS: PCP Nurse Practitioner Family; Visit Provider Physician Assistant Surgical
DX: F17.210 Nicotine dependence, cigarettes, uncomplicated (principal); Z12.2 Encounter for screening for malignant neoplasm of respiratory organs
CPT/HCPCS: 71271

== ENCOUNTER → 2024-09-19 12:35 | Outpatient (BNVA) | payer MEDICARE, SELFPAY | PROVIDERS: PCP Nurse Practitioner Family; Referring Provider Nurse Practitioner Family; Visit Provider Physician Assistant Surgical | DX: J44.9 Chronic obstructive pulmonary disease, unspecified (principal); J96.11 Chronic respiratory failure with hypoxia; F17.210 Nicotine dependence, cigarettes, uncomplicated | CPT/HCPCS: 99214 ==

== ENCOUNTER 2024-10-05 12:11 | Emergency (ER) | payer MEDICARE, SELFPAY ==
[2024-10-05 12:19] VITALS: BP 195/72; PULSE 84; RESP 16; TEMP 36.8; O2SAT 97
--- NOTE | 2024-10-05 12:44 | W.ED.GENAD ---
Discharge Plan Disposition Patient Disposition: Home Condition: Stable Discharge Details Clinical Impression: Left hip pain Primary Care Provider: Keyla Emery ED Provider: Reji Rueda Home Meds and New Rx's Prescriptions: Continued metoprolol succinate 50 mg tablet extended release 24 hr 50 mg PO DAILY Patient Comments: changed to 50 mg daily. 01/25/18 TB aspirin 81 mg tablet,delayed release (DR/EC) 81 mg PO DAILY loratadine [Claritin] 10 mg tablet 10 mg PO DAILY Trelegy Ellipta 100-62.5-25 mcg blister with device 1 inh inhalation DAILY prednisone 10 mg tablet 10 mg PO DAILY Qty: 34 0RF Rx Instructions: Take 40mg (4 tablets) one a day for 4 days, 30mg (3 tablets) once a day for 3 days, 20mg (2 tablets) once a day for 3 days , 10mg (1 tablet) for 2 days, 5mg (0.5 tablets) for 2 days acetaminophen [Tylenol Extra Strength] 500 MG tablet 500 mg PO PRN PRN (Reason: Pain) atorvastatin 20 mg Tablet 20 mg PO DAILY losartan 25 mg Tablet 50 mg PO DAILY ipratropium-albuterol 0.5 mg-3 mg(2.5 mg base)/3 mL solution for nebulization 3 ml inhalation Q6H PRNQty: 90 0RF nitroglycerin 0.4 MG tablet, sublingual 0.4 mg Sublingual Q5 MIN PRN X3 PRNQty: 10 0RF albuterol sulfate 1.25 mg/3 mL Solution For Nebulization 1.25 mg INHALATION Q4H PRN albuterol sulfate [ProAir HFA] 90 mcg/actuation Hfa Aerosol Inhaler 2 puff INHALATION QID PRN lorazepam 0.5 mg Tablet 0.25 mg PO HS Rx Instructions: HALF A TABLET HS DAILY paroxetine HCl [Paxil] 20 mg Tablet 20 mg PO DAILY calcium carbonate-vitamin D3 [Calcium 600 + D(3)] 600 mg(1,500mg) -200 unit Tablet 1 tab PO BID Qty: 60 0RF cholecalciferol (vitamin D3) [Vitamin D3] 10 mcg (400 unit) Tablet 400 unit PO DAILY Qty: 30 0RF ibuprofen 200 mg Capsule 600 mg PO Q8H PRN Discharge Instructions Instructions: Hip Pain ED Additional Instructions: You were seen in the emergency department for your left hip pain, there is no fracture to the left hip or pelvis seen, I suspect you have arthritis which is causing pain, I suggest you follow-up with orthopedics for further evaluation. Please take regular doses of Tylenol and ibuprofen at home, apply topical lidocaine patch to your lower back daily, you may use topical Voltaren gel purchased [id number] at any pharmacy to help with pain of arthritis, please return to the emergency department for complete inability to ambulate, worsening with fever, severe increase in pain or signs of neurovascular compromise. Referrals: [facility] [Provider Group] Keyla Emery PA [Primary Care Provider] - Discharge Data Discharge Date/Time-TO BE ENTERED AT DEPARTURE: 10/05/24 13:49 HPI General Date/Time Provider Initiated Documentation: 10/05/24 12:13. HPI Narrative: 79 year-old female presents to ED today by POV/ambulating with a chief complaint of L hip pain with onset for the past 1.5 weeks, denies trauma. Quality described as soreness in L hip joint, no radiation to numbness/tingling, redness, lesions, rashes, back pain, urinary retention, bowel incontinence. Severity is described as moderate. Palliating factors include 1g Tylenol and 200mg advil today once at 0530. Provoking factors include nothing specific. Events leading up to the incident/Associated Symptoms: Patient has VENTURA to that hip 3 years ago. Patient not anticoagulated. Related Data Home Medications ?Medication ?Instructions ?Recorded ?Confirmed acetaminophen 500 mg tablet 500 mg PO PRN PRN Pain 11/25/13 10/05/24 (Tylenol Extra Strength) nitroglycerin 0.4 mg sublingual 0.4 mg sublingual Q5 MIN PRN X3 07/30/17 10/05/24 tablet PRN ##10 albuterol sulfate 1.25 mg/3 mL 1.25 mg inhalation Q4H PRN 01/14/19 10/05/24 solution for nebulization albuterol sulfate 90 mcg/actuation 2 puff inhalation QID PRN 01/14/19 10/05/24 aerosol inhaler (ProAir HFA) atorvastatin 20 mg tablet 20 mg PO DAILY 02/01/19 10/05/24 losartan 25 mg tablet 50 mg PO DAILY 02/01/19 10/05/24 lorazepam 0.5 mg tablet 0.25 mg PO HS 02/14/21 10/05/24 paroxetine HCl 20 mg tablet (Paxil) 20 mg PO DAILY 02/17/21 10/05/24 calcium 600 mg (as 1 tab PO BID #60 tabs 02/18/21 10/05/24 carbonate)-vitamin D3 5 mcg (200 unit) tablet (Calcium 600 + D(3)) cholecalciferol (vitamin D3) 10 400 unit PO DAILY #30 tabs 02/18/21 10/05/24 mcg (400 unit) tablet (Vitamin D3) ibuprofen 200 mg capsule 600 mg PO Q8H PRN 08/18/21 10/05/24 aspirin 81 mg tablet,delayed 81 mg PO DAILY 03/13/24 10/05/24 release fluticasone fur. 100 mcg-umeclid 1 inh inhalation DAILY 03/13/24 10/05/24 62.5 mcg-vilant 25 mcg inhalat.powder (Trelegy Ellipta) loratadine 10 mg tablet (Claritin) 10 mg PO DAILY 03/13/24 10/05/24 metoprolol succinate 50 mg 50 mg PO DAILY 04/02/24 10/05/24 tablet,extended release 24 hr ipratropium 0.5 mg-albuterol 3 mg 3 ml inhalation Q6H PRN #90 mL 05/08/24 10/05/24 (2.5 mg base)/3 mL nebulization soln prednisone 10 mg tablet 10 mg PO DAILY #34 tabs 09/24/24 10/05/24 Previous Rx's ?Medication ?Instructions ?Recorded nitroglycerin 0.4 mg sublingual 0.4 mg sublingual Q5 MIN PRN X3 07/30/17 tablet PRN ##10 calcium 600 mg (as 1 tab PO BID #60 tabs 02/18/21 carbonate)-vitamin D3 5 mcg (200 unit) tablet (Calcium 600 + D(3)) cholecalciferol (vitamin D3) 10 400 unit PO DAILY #30 tabs 02/18/21 mcg (400 unit) tablet (Vitamin D3) ipratropium 0.5 mg-albuterol 3 mg 3 ml inhalation Q6H PRN #90 mL 05/08/24 (2.5 mg base)/3 mL nebulization soln prednisone 10 mg tablet 10 mg PO DAILY #34 tabs 09/24/24 Allergies Allergy/AdvReac Type Severity Reaction Status Date / Time morphine AdvReac Mild vomiting Verified 10/05/24 12:23 General Stated Complaint: Orthopedic SEAMUS: 3 Review of Systems All systems reviewed & are unremarkable except as noted in HPI and below Exam Narrative Exam Narrative: GENERAL APPEARANCE: Well-nourished, non-toxic, awake and alert, atraumatic, no acute distress. SKIN: Warm, pink, dry, intact, without rashes/lesions/ulcerations. HEAD: Normocephalic, atraumatic, normal hair distribution for gender/age. EYES: Normal conjunctiva, no exudates on lids/lashes. ENT: Nares patent, no circumoral cyanosis, no facial swelling NECK: Supple, trachea midline, painless cervical ROM. LUNGS/CHEST: Non-labored respirations, normal A/P diameter, symmetrical expansion, no chest wall deformity HEART (CV/PV): No peripheral edema, no JVD. ABDOMEN: Soft, non-distended, no guarding. MSK: Normal ROM, no swelling/deformity to bilateral UEs or LEs, moving all extremities without weakness, no cyanosis, spine midline without tenderness, normal curvature, tenderness diffusely to the left hip without deformity or crepitus or bruising or lesion or erythema or warmth to touch. NEURO: Mental Status AAOx4 - alert to person, place, time, events No facial droop, no forehead involvement. Motor: No focal weakness - strength 5/5 in bilateral UEs and LEs, proximal and distal, symmetric. Sensory: sensation intact to light touch globally. Gait normal: patient ambulated without ataxia into ED room. PSYCH: euthymic, cooperative, pleasant, appropriate speech Course Vital Signs Vital signs: Vital Signs Temperature 36.8 C 10/05/24 12:19 Pulse 84 10/05/24 12:19 Respiratory Rate 16 10/05/24 12:19 Blood Pressure 195/72 H 10/05/24 12:19 Pulse Oximetry 97 10/05/24 12:19 Temperature 36.8 C 10/05/24 12:19 Temperature Source Oral 10/05/24 12:19 Pulse 84 10/05/24 12:19 Respiratory Rate 16 10/05/24 12:19 Blood Pressure 195/72 H 12/27/24 12:19 Blood Pressure Position Sitting 10/05/24 12:19 Pulse Oximetry 97 10/05/24 12:19 Oxygen Delivery Method Room Air 10/05/24 12:19 Oxygen Flow Rate 0 10/05/24 12:19 Pain Level 10 10/05/24 12:30 Medical Decision Making This dictation utilizes [id number] dictation software and may contain unedited grammatical errors. 79 year-old female presents to ED today by POV/ambulating with a chief complaint of L hip pain with onset for the past 1.5 weeks, denies trauma. Quality described as soreness in L hip joint, no radiation to numbness/tingling, redness, lesions, rashes, back pain, urinary retention, bowel incontinence. Severity is described as moderate. Palliating factors include 1g Tylenol and 200mg advil today once at 0530. Provoking factors include nothing specific. Events leading up to the incident/Associated Symptoms: Patient has VENTURA to that hip 3 years ago. Patients' medical history: [ ]. Family and social history: [ ]. Pertinent exam findings / vital signs include tenderness diffusely to the left hip without deformity or crepitus or bruising or lesion or erythema or warmth to touch. Differential / pathologies of concern include arthritis, IT band syndrome, musculoskeletal hip pain, low back pain. Diagnostic studies of: -X-ray left hip complete-shows no acute abnormality. Interventions of: -Recommend therapeutic dosing Tylenol and ibuprofen, Voltaren gel, topical lidocaine patches, physical therapy and follow-up with orthopedics. ED Course/Assessment/Plan: 79-year-old female presents with left hip pain for over a week and a half, has remote history of hip replacement to this area, she also has posterior pain in the SI joint, her x-rays negative, recommend she follow-up with physical therapy and orthopedic visits, patient verbalized understanding, I counseled her on therapeutic dosing of Tylenol and ibuprofen and Voltaren gel. Strict return criteria for inability to ambulate, severe increase in hip pain or trauma Findings not consistent with neurovascular compromise or fracture, septic arthritis. Disposition of Left Hip Pain. Patient verbalized understanding of the plan and return to ED criteria and engaged in shared decision making. Medical Records Medical records reviewed: Yes I reviewed the patient's medical records. Imaging Data Radiologic Study: Attestation: I personally reviewed and interpreted this imaging study as follows: Imaging: X-Ray Radiologist's impression: EXAM: XR HIP LT COMPLETE AP PELVIS CLINICAL HISTORY: L hip pain. TECHNIQUE: 2D digital imaging was performed. Two views. COMPARISON: CR XR HIP LT COMPLETE AP PELVIS from 08/18/2021 CR XR HIP LT AP LAT ONLY from 02/25/2022 FINDINGS: BONES: Sacrum is mostly obscured by overlying bowel gas and stool. No acute fracture is present. No bony destructive lesion is seen. JOINTS: No dislocation present. The SI joints and pubic symphysis are intact. No change in appearance of left hip prosthesis. No change in appearance of the surrounding bone. Mild degenerative changes of the right hip. SOFT TISSUE: Pessary. IMPRESSION: No acute abnormality. Quality:SDOH Health Related Social Needs: No Data to Display PFSH All Active Problems (Updated 10/05/24 @ 13:34 by ANSELMO Draper) Left hip pain (Acute) Chronic hypoxic respiratory failure (Acute) Hyperglycemia (Acute) Dysphonia (Acute) Essential hypertension (Acute) Anxiety disorder (Acute) Anemia (Chronic) Melanocytic nevus (Acute) History of COPD (Acute) Requires supplemental oxygen (Acute) Hypoxia (Acute) COVID-19 (Acute) COVID-19 (Acute) Hip pain, left (Acute) History of hemiarthroplasty of left hip (Acute 02/15/21) Vitamin D deficiency (Acute) Leukocytosis (Acute) COPD (chronic obstructive pulmonary disease) (Chronic) Discharge planning issues (Acute) DVT prophylaxis (Acute) Closed fracture of neck of left femur (Acute 02/14/21) Recurrent pancreatitis (Acute 11/17/14) Tobacco use (Chronic) Osteopenia (Chronic) Migraine headache (Chronic) History of Surgical Procedure (Chronic) a. Left shoulder surgery. b. Cyst removed from index finger. c. Trigger thumb. Insomnia (Chronic) Chest pain (Acute) Medical History (Updated 10/05/24 @ 13:34 by ANSELMO Draper) History of psychiatric disorder Vertigo Hyperlipidemia Hypertension Tobacco abuse Pancreatitis Atrial fibrillation lone Afib, on asa Surgical History (Updated 03/13/21 @ 08:37 by ANSELMO Sears) H/O section History of hysterectomy History of bilateral tubal ligation History of tonsillectomy H/O bladder repair surgery Trigger Finger release (11/12/13) R Thumb Family History (Updated 03/13/24 @ 12:46 by Yesi Chaudhary) Sister Heart disease Hypertension Sister Hypertension Brother Cancer lung cancer - associated with agent orange exposure Mother , age 93 Broken hip Father Cancer Social History (Updated 03/13/24 @ 12:44 by Yesi Chaudhary) Smoking/Tobacco Use Status: Current every day Tobacco Type: cigarettes Tobacco: How many years used: 58 Quit status: considering quitting Counseling given: provider counseling Smoking risk assessment performed?: Yes Alcohol Intake: current Alcohol Intake frequency: holidays/special occasions only Alcohol type: wine Drug use: Never Substance use type: does not use Housing: house Do you feel safe at home: Yes Do you feel safe in your relationship?: Yes
[2024-10-05] MEDS: Lidocaine 5% Patch 1 PATCH TP (13:48)
== END 2024-10-05 13:49 | disposition home or self-care (01) ==
PROVIDERS: Emergency Provider Physician Assistant; PCP Physician Assistant Medical
DX: M25.552 Pain in left hip (principal); E78.5 Hyperlipidemia, unspecified; I10 Essential (primary) hypertension; I48.91 Unspecified atrial fibrillation; F17.210 Nicotine dependence, cigarettes, uncomplicated; Z79.82 Long term (current) use of aspirin; Z96.642 Presence of left artificial hip joint
CPT/HCPCS: 99283; 73502

== ENCOUNTER → 2024-10-09 09:19 | Outpatient (BNVA) | payer MEDICARE, SELFPAY | PROVIDERS: PCP Physician Assistant Medical; Referring Provider Physician Assistant Medical | DX: M76.32 Iliotibial band syndrome, left leg (principal); M70.62 Trochanteric bursitis, left hip; Z96.642 Presence of left artificial hip joint | CPT/HCPCS: 99213 ==

== ENCOUNTER 2024-10-15 14:04 | Emergency (ER) | payer MEDICARE, SELFPAY ==
[2024-10-15 14:08] VITALS: BP 198/78; PULSE 73; RESP 16; TEMP 36.5; O2SAT 92
--- NOTE | 2024-10-15 14:43 | ED.GENADUL_ITS ---
Discharge Plan Disposition Patient Disposition: Home Condition: Stable Discharge Details Clinical Impression: Trochanteric bursitis, left hip, Iliotibial band syndrome of left side, History of hemiarthroplasty of left hip, COPD (chronic obstructive pulmonary disease), Hip pain, left, Essential hypertension Primary Care Provider: Keyla Emery ED Provider: Heidi Pascual Home Meds and New Rx's Prescriptions: New morphine 15 mg tablet 15 mg PO Q6H PRNQty: 5 0RF No Action metoprolol succinate 50 mg tablet extended release 24 hr 50 mg PO DAILY Patient Comments: changed to 50 mg daily. 01/25/18 TB aspirin 81 mg tablet,delayed release (DR/EC) 81 mg PO DAILY loratadine [Claritin] 10 mg tablet 10 mg PO DAILY Trelegy Ellipta 100-62.5-25 mcg blister with device 1 inh inhalation DAILY acetaminophen [Tylenol Extra Strength] 500 MG tablet 500 mg PO PRN PRN (Reason: Pain) atorvastatin 20 mg Tablet 20 mg PO DAILY losartan 25 mg Tablet 50 mg PO DAILY ipratropium-albuterol 0.5 mg-3 mg(2.5 mg base)/3 mL solution for nebulization 3 ml inhalation Q6H PRNQty: 90 0RF nitroglycerin 0.4 MG tablet, sublingual 0.4 mg Sublingual Q5 MIN PRN X3 PRNQty: 10 0RF albuterol sulfate 1.25 mg/3 mL Solution For Nebulization 1.25 mg INHALATION Q4H PRN albuterol sulfate [ProAir HFA] 90 mcg/actuation Hfa Aerosol Inhaler 2 puff INHALATION QID PRN lorazepam 0.5 mg Tablet 0.25 mg PO HS Rx Instructions: HALF A TABLET HS DAILY paroxetine HCl [Paxil] 20 mg Tablet 20 mg PO DAILY calcium carbonate-vitamin D3 [Calcium 600 + D(3)] 600 mg(1,500mg) -200 unit Tablet 1 tab PO BID Qty: 60 0RF cholecalciferol (vitamin D3) [Vitamin D3] 10 mcg (400 unit) Tablet 400 unit PO DAILY Qty: 30 0RF ibuprofen 200 mg Capsule 600 mg PO Q8H PRN Patient Comments: took 800mg at 0800 Discharge Instructions Instructions: Bursitis (DC) Additional Instructions: You were seen in the emergency department today for evaluation of left hip pain. In our department you have a full physical examination performed, had medications for management of your pain, and were seen by orthopedics and had an injection of your trochanteric bursa, the cushioning fluid sac on the outer side of your hip. You will be rescheduled to see orthopedics at a later time for reevaluation. My hope is that this improves your pain, but if you are still continuing to experience discomfort you should continue to use Tylenol and ibuprofen. I have sent a short course of oral morphine to your pharmacy, which you can use for breakthrough pain. A typical pain management schedule looks something like this: 3 tablets (600 mg) of ibuprofen taken with breakfast in the morning. 3 hours later, you would take 2 tablets of Tylenol (extra strength or regular strength is fine). 3 hours after that, it would now be 6 hours since your last ibuprofen dose and time to take another ibuprofen. Continue alternating medications every 3 hours throughout the day. Alternatively, you can trial your diclofenac gel, rubbed in a small area over your hip or back. If you are using the diclofenac gel you should skip the ibuprofen as these 2 medications are similar. The morphine should be taken in addition to the above-noted regimen, and can cause drowsiness. Many patients prefer to take this at nighttime to assist with sleep. Please follow-up with orthopedics and your primary care provider, and thank you for allowing us to be part of your care. HPI General Mode of arrival: ambulatory . Date/Time Provider Initiated Documentation: 10/15/24 14:05 . Limitations to Documentation: no limitations . Information obtained by: patient and old records reviewed . HPI Narrative: HPI: This is a 79-year-old female patient with a past medical history significant for partial hip replacement on the left, complicated by recent left hip pain thought to be due to IT band syndrome, trochanteric bursitis, and SI joint inflammation, as well as a history of COPD and a recent pneumonia, presenting for evaluation of ongoing hip pain. The patient reports that she was evaluated here in the emergency department for this hip pain, and saw orthopedics about a week ago, with a plan for her to return on this Tuesday for steroid injections. She reports that she presented today because the pain has been ongoing and is causing her distress due to her inability to relax or get typical amounts of sleep. She reports that sometimes the pain is so bad she gets sick to her stomach. The patient states that she is using Tylenol and ibuprofen at home. She was prescribed lidocaine patches but has not been using them because they do not help. She was initially told to use Voltaren gel, but states that the packaging said not to use it on her hip so she has not been. She states that she has not sustained any injury or trauma to the area, does have worsening of the pain with movement and walking though sometimes it feels better to have her leg elevated and supported. She has not noted any radicular type symptoms, has not had numbness, but does feel that her left hip flexion is weaker than typical. The patient has otherwise been in her normal state of health. She has recovered from her respiratory illness, has not had fevers or chills, decreased p.o. intake, changes in bowel or bladder habits. Exam: Gen: Awake and alert, in no apparent distress HEENT: Non-icteric sclera Neck: Supple Lungs: No apparent respiratory distress, normal respiratory effort. CV: Appears well perfused, strong distal pulses Abdomen: Non-distended, soft, nontender to palpation without rigidity, rebound, or guarding. MSK: No tenderness to palpation of the T or L-spine, no step-offs. Some tenderness to palpation over left SI joint without overlying skin changes. Pelvis stable to AP compression, the patient has weakness with flexion of the left hip. No tenderness with passive range of motion, does have limitation of external rotation bilaterally. Straight leg raise negative bilaterally, tenderness to palpation over the trochanteric bursa of the left leg. Skin: Visualized skin without rashes, cyanosis. Neuro: Antalgic Gait, no obvious focal deficits or facial asymmetry. Speaks in full, clear sentences. Psych: Appropriate for situation. MDM: This is a 79-year-old female patient presenting for evaluation of ongoing left hip pain. My differential is primarily suspicious for ongoing trochanteric bursitis, sacroiliitis, IT band syndrome, as the patient has no history of physical exam findings concerning for fracture, dislocation, contusion. The patient endorses a concern that she may be having an allergic reaction to her prosthesis, which I think would be highly unlikely as her prior been a nickel allergy. My exam is less concerning for sciatica, lumbar disc disease, septic arthritis. ED Course: We did an extended discussion regarding pain management and multimodal approaches to her comfort. I do not see an indication at this time for imaging as the patient has already had imaging for this condition and has not had any other acute traumatic changes. I will provide her with a dose of Tylenol, Toradol, and an oral morphine. We will reassess after these medications and can add narcotics to her regimen as needed to get her to her appointment on Tuesday. -The patient had significant improvement in her symptoms and was able to ambulate steadily after these medications. Dr. Dudley with the orthopedics team did assess the patient at bedside and provided her with a steroid injection of the trochanteric bursa. They will reach out to reschedule her Tuesday appointment for reassessment. I did have an extended discussion with this patient regarding her pain management strategy, recommended trialing diclofenac gel but avoiding duplication of NSAIDs if this is successful. I also sent her with a very small prescription for morphine for breakthrough pain, though I hope that the steroid injection will reduce her pain to the point where she can manage with [id number] medications. At this time, the patient has had a full medical evaluation and is safe for discharge to home. They are hemodynamically stable, ambulatory, and tolerating PO. They are understanding of the follow-up plan and return precautions. They left our facility without incident. Heidi Pascual MD Related Data Home Medications ?Medication ?Instructions ?Recorded ?Confirmed acetaminophen 500 mg tablet 500 mg PO PRN PRN Pain 11/25/13 10/15/24 (Tylenol Extra Strength) nitroglycerin 0.4 mg sublingual 0.4 mg sublingual Q5 MIN PRN X3 07/30/17 10/15/24 tablet PRN ##10 albuterol sulfate 1.25 mg/3 mL 1.25 mg inhalation Q4H PRN 01/14/19 10/15/24 solution for nebulization albuterol sulfate 90 mcg/actuation 2 puff inhalation QID PRN 01/14/19 10/15/24 aerosol inhaler (ProAir HFA) atorvastatin 20 mg tablet 20 mg PO DAILY 02/01/19 10/15/24 losartan 25 mg tablet 50 mg PO DAILY 02/01/19 10/15/24 lorazepam 0.5 mg tablet 0.25 mg PO HS 02/14/21 10/15/24 paroxetine HCl 20 mg tablet (Paxil) 20 mg PO DAILY 02/17/21 10/15/24 calcium 600 mg (as 1 tab PO BID #60 tabs 02/18/21 10/15/24 carbonate)-vitamin D3 5 mcg (200 unit) tablet (Calcium 600 + D(3)) cholecalciferol (vitamin D3) 10 400 unit PO DAILY #30 tabs 02/18/21 10/15/24 mcg (400 unit) tablet (Vitamin D3) ibuprofen 200 mg capsule 600 mg PO Q8H PRN 08/18/21 10/15/24 aspirin 81 mg tablet,delayed 81 mg PO DAILY 03/13/24 10/15/24 release fluticasone fur. 100 mcg-umeclid 1 inh inhalation DAILY 03/13/24 10/15/24 62.5 mcg-vilant 25 mcg inhalat.powder (Trelegy Ellipta) loratadine 10 mg tablet (Claritin) 10 mg PO DAILY 03/13/24 10/15/24 metoprolol succinate 50 mg 50 mg PO DAILY 04/02/24 10/15/24 tablet,extended release 24 hr ipratropium 0.5 mg-albuterol 3 mg 3 ml inhalation Q6H PRN #90 mL 05/08/24 10/15/24 (2.5 mg base)/3 mL nebulization soln morphine 15 mg immediate release 15 mg PO Q6H PRN #5 tabs 10/15/24 tablet Previous Rx's ?Medication ?Instructions ?Recorded nitroglycerin 0.4 mg sublingual 0.4 mg sublingual Q5 MIN PRN X3 07/30/17 tablet PRN ##10 calcium 600 mg (as 1 tab PO BID #60 tabs 02/18/21 carbonate)-vitamin D3 5 mcg (200 unit) tablet (Calcium 600 + D(3)) cholecalciferol (vitamin D3) 10 400 unit PO DAILY #30 tabs 02/18/21 mcg (400 unit) tablet (Vitamin D3) ipratropium 0.5 mg-albuterol 3 mg 3 ml inhalation Q6H PRN #90 mL 05/08/24 (2.5 mg base)/3 mL nebulization soln morphine 15 mg immediate release 15 mg PO Q6H PRN #5 tabs 10/15/24 tablet Allergies Allergy/AdvReac Type Severity Reaction Status Date / Time morphine AdvReac Mild vomiting Verified 10/15/24 14:06 General Stated Complaint: Orthopedic SEAMUS: 4 Course Vital Signs Vital signs: Vital Signs Temperature 36.5 C 10/15/24 14:08 Pulse 73 10/15/24 14:08 Respiratory Rate 16 10/15/24 14:08 Blood Pressure 198/78 H 10/15/24 14:08 Pulse Oximetry 92 10/15/24 14:08 Temperature 36.5 C 10/15/24 14:08 Temperature Source Oral 10/15/24 14:08 Pulse 73 10/15/24 14:08 Respiratory Rate 16 10/15/24 14:08 Blood Pressure 198/78 H 10/15/24 14:08 Blood Pressure Position Sitting 10/15/24 14:08 Pulse Oximetry 92 10/15/24 14:08 Oxygen Delivery Method Room Air 10/15/24 14:08 Oxygen Flow Rate 0 10/15/24 14:08 Pain Level 9 10/15/24 14:08 Medical Decision Making Quality:SDOH Health Related Social Needs: No Data to Display PFSH All Active Problems (Updated 10/15/24 @ 15:24 by Heidi Pascual MD) Iliotibial band syndrome of left side (Acute) Trochanteric bursitis, left hip (Acute) Left hip pain (Acute) Chronic hypoxic respiratory failure (Acute) Hyperglycemia (Acute) Dysphonia (Acute) Essential hypertension (Acute) Anxiety disorder (Acute) Anemia (Chronic) Melanocytic nevus (Acute) History of COPD (Acute) Requires supplemental oxygen (Acute) Hypoxia (Acute) COVID-19 (Acute) COVID-19 (Acute) Hip pain, left (Acute) History of hemiarthroplasty of left hip (Acute 02/15/21) Vitamin D deficiency (Acute) Leukocytosis (Acute) COPD (chronic obstructive pulmonary disease) (Chronic) Discharge planning issues (Acute) DVT prophylaxis (Acute) Closed fracture of neck of left femur (Acute 02/14/21) Recurrent pancreatitis (Acute 11/17/14) Tobacco use (Chronic) Osteopenia (Chronic) Migraine headache (Chronic) History of Surgical Procedure (Chronic) a. Left shoulder surgery. b. Cyst removed from index finger. c. Trigger thumb. Insomnia (Chronic) Chest pain (Acute) Medical History (Updated 10/15/24 @ 15:24 by Heidi Pascual MD) History of psychiatric disorder Vertigo Hyperlipidemia Hypertension Tobacco abuse Pancreatitis Atrial fibrillation lone Afib, on asa Surgical History (Updated 10/15/24 @ 15:24 by Heidi Pascual MD) H/O section History of hysterectomy History of bilateral tubal ligation History of tonsillectomy H/O bladder repair surgery Trigger Finger release (11/12/13) R Thumb Family History (Updated 03/13/24 @ 12:46 by Yesi Chaudhary) Sister Heart disease Hypertension Sister Hypertension Brother Cancer lung cancer - associated with agent orange exposure Mother , age 93 Broken hip Father Cancer Social History (Updated 03/13/24 @ 12:44 by Yesi Chaudhary) Smoking/Tobacco Use Status: Current every day Tobacco Type: cigarettes Tobacco: How many years used: 58 Quit status: considering quitting Counseling given: provider counseling Smoking risk assessment performed?: Yes Alcohol Intake: current Alcohol Intake frequency: holidays/special occasions only Alcohol type: wine Drug use: Never Substance use type: does not use Housing: house Do you feel safe at home: Yes Do you feel safe in your relationship?: Yes
[2024-10-15] MEDS: Acetaminophen 500 MG TAB 1000 MG PO (14:44)
[2024-10-15] MEDS: MORPHine IR 15 MG TAB PO (14:44)
[2024-10-15] MEDS: Ketorolac 15 MG/ML VIAL IM (14:44)
[2024-10-15 14:48] VITALS: BP 128/74; PULSE 74
[2024-10-15 15:45] VITALS: BP 152/68; PULSE 58; RESP 18; O2SAT 96
--- NOTE | 2024-10-15 16:59 | W.ORTHOCONSU ---
Date of service: 10/15/24 Time of Service: 15:10 History of Present Illness History of Present Illness Chief Complaint: Left Hip/Leg Pain Narrative: Ruby is a 79-year-old female who was seen just a few days ago in clinic by ANSELMO Crum, for pain about the left hip, buttock, and leg. She has a history of hemiarthroplasty on the left side for fracture approximately 4 years ago. 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 However, she has been able to do quite well despite this. She ambulates without assistive device. However, over the past few weeks she has had increasing pain about the left hip and leg. She describes his pain is taking her breath away making her nauseous. She locates an area over the posterior aspect of the buttock and the left hip. She feels that this travels down towards the groin and then down the anterior thigh. Interestingly, over the past few days she has felt that is increased such that is going down past the knee all the way to the midportion of the left leg more medial than lateral. She has recently been on steroids for her lungs following an upper respiratory infection. She did not find that the steroids seem to help out but when she stopped the steroids that she has found her pain to be much worse. She has difficulty with sleeping. He is unable to lay on the left side. She does have some pain with weightbearing but does not necessarily think it gets much worse. Consults Consult date: 10/15/24 Requesting physician: Heidi Pascual Consult Reason Left Hip/Leg Pain Assessment and Plan Assessment and plan (1) Left hip pain: Status: Acute (2) Trochanteric bursitis, left hip: Status: Acute Assessment and plan: Ruby is a 79-year-old female who has worsening pain about her left hip. 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 However, this most recent exacerbation of pain is likely related to trochanteric bursitis. I also think a portion could be coming from her back given the radicular nature of the pain she describes down the leg. Some of her exam is also more consistent with trochanteric bursitis. Therefore, the service both diagnostic and therapeutic, I offered injection of the trochanteric bursa about the left side. This injection was given without difficulty and she tolerated it well. Review of Systems All systems reviewed & are unremarkable except as noted in HPI and below PFSH All Active Problems Iliotibial band syndrome of left side (Acute) Trochanteric bursitis, left hip (Acute) Left hip pain (Acute) Chronic hypoxic respiratory failure (Acute) Hyperglycemia (Acute) Dysphonia (Acute) Essential hypertension (Acute) Anxiety disorder (Acute) Anemia (Chronic) Melanocytic nevus (Acute) History of COPD (Acute) Requires supplemental oxygen (Acute) Hypoxia (Acute) COVID-19 (Acute) COVID-19 (Acute) Hip pain, left (Acute) History of hemiarthroplasty of left hip (Acute 02/15/21) Vitamin D deficiency (Acute) Leukocytosis (Acute) COPD (chronic obstructive pulmonary disease) (Chronic) Discharge planning issues (Acute) DVT prophylaxis (Acute) Closed fracture of neck of left femur (Acute 02/14/21) Recurrent pancreatitis (Acute 11/17/14) Tobacco use (Chronic) Osteopenia (Chronic) Migraine headache (Chronic) History of Surgical Procedure (Chronic) a. Left shoulder surgery. b. Cyst removed from index finger. c. Trigger thumb. Insomnia (Chronic) Chest pain (Acute) Medical History History of psychiatric disorder Vertigo Hyperlipidemia Hypertension Tobacco abuse Pancreatitis Atrial fibrillation lone Afib, on asa Surgical History H/O section History of hysterectomy History of bilateral tubal ligation History of tonsillectomy H/O bladder repair surgery Trigger Finger release (11/12/13) R Thumb Family History Sister Heart disease Hypertension Sister Hypertension Brother Cancer lung cancer - associated with agent orange exposure Mother , age 93 Broken hip Father Cancer Social History Smoking/Tobacco Use Status: Current every day Tobacco Type: cigarettes Tobacco: How many years used: 58 Quit status: considering quitting Counseling given: provider counseling Smoking risk assessment performed?: Yes Alcohol Intake: current Alcohol Intake frequency: holidays/special occasions only Alcohol type: wine Drug use: Never Substance use type: does not use Housing: house Do you feel safe at home: Yes Do you feel safe in your relationship?: Yes Exam Narrative Exam Narrative: Ruby is seen in the exam room. She is in no acute distress. Alert oriented x 3. She is able to ambulate in the room with minimal limitation except for some mild antalgia. No Trendelenburg. Evaluation of the left hip shows no significant pain with internal and external rotation. At the maximal points of internal rotation she has some posterior lateral pain. No groin pain. She does have a recreation of buttock, back, leg pain with active straight leg raise. This is less so with passive straight leg raise. Mild pain with seated hip flexion against resistance. Exquisite pain on palpation about the greater trochanter and in the soft tissue just posterior to it. She locates an area adjacent to the ischium where she feels her pain is worse and this is reproduce it on palpation within the soft tissues adjacent to the ischium and in the sciatic notch. 5 out of 5 strength to hip flexion, knee extension, ankle dorsiflexion, ankle plantarflexion, EHL. Mild weakness hip abduction which recreates some pain. Results Last Vital Signs Temp 36.5 C 10/15/24 14:08 Pulse 58 L 10/15/24 15:45 Resp 18 10/15/24 15:45 BP 152/68 H 10/15/24 15:45 Pulse Ox 96 10/15/24 15:45 Imaging Imaging Studies: Previous x-rays of the left hip show a cemented hemiarthroplasty. There is sclerosis seen in the superior weightbearing portion of the acetabulum with no significant space between the bony edge and the metal unipolar head. No protrusio. No other suspicious lesions. No signs of loosening of the left femur. Procedures Bursa Procedures Site of procedure: trochanteric bursa XRAY obtained: none Antisepsis used: other (Alcohol) Medication injected: methylprednisolone acetate Amount of medication used (mg): 80 Lidocaine added to medication: Yes (0.25% Bupivacaine) Patient tolerated procedure: well Complications: none
== END 2024-10-15 16:13 | disposition home or self-care (01) ==
PROVIDERS: Emergency Provider Emergency Medicine; PCP Physician Assistant Medical
DX: M25.552 Pain in left hip (principal); M70.62 Trochanteric bursitis, left hip; M76.32 Iliotibial band syndrome, left leg
CPT/HCPCS: 20610; 96374; 99284; J1885

== ENCOUNTER 2024-12-18 12:09 | Outpatient (REF) | payer MEDICARE, SELFPAY ==
[2024-12-18 15:58] LABS: ALT 18 U/L (14-59); AST 24 U/L (15-37); Albumin 3.6 g/dL (3.4-5.0); Alkaline Phosphatase 121 U/L (46-116); Anion Gap 6.7 mmol/L (3-11); BUN 18 mg/dL (7-18); Bilirubin, Total 0.4 mg/dL (0.2-1.0); CO2 28.3 mmol/L (21.0-32.0); CREATININE 0.9 mg/dL (0.55-1.02); Calcium 9.5 mg/dL (8.5-10.1); Calculated LDL 48 mg/dL (<100); Chloride 105 mmol/L (98-107); Cholesterol 145 mg/dL (<200); Estimated GFR 65.84 (mL/min/1.73m2); Glucose 117 mg/dL (74-106); HDL Cholesterol 75 mg/dL (>or=50); Potassium 5.1 mmol/L (3.5-5.1); Sodium 140 mmol/L (136-145); Total Protein 7.2 g/dL (6.4-8.2); Triglyceride 111 mg/dL (<150)
== END 2024-12-18 12:10 | disposition home or self-care (01) ==
LOC: NCHCN 12:09
PROVIDERS: PCP Physician Assistant Medical; Visit Provider Physician Assistant Medical
DX: E78.5 Hyperlipidemia, unspecified (principal); R73.03 Prediabetes
CPT/HCPCS: 80053; 80061; 83036

== ENCOUNTER 2025-01-28 01:59 | Outpatient (CLI) | payer MEDICARE, SELFPAY ==
--- NOTE | 2025-01-28 | DI.MAMMO_ITS ---
Exam(s) MAMMO SCREENING EXAM: MAMMO SCREENING CLINICAL HISTORY: Screening, Z12.31 TECHNIQUE: Bilateral full field digital CC and MLO mammographic images were obtained with 3D tomosyn thesis and utilizing computer aided detection (CAD). COMPARISON: Available for comparison. FINDINGS: Masses/Architectural Distortion: No suspicious masses or areas of architectural distortion are presen t. Microcalcifications: No suspicious pleomorphic-type are seen. Skin Thickening/Nipple Retraction: None. IMPRESSION: 1. No significant interval change with no specific features of malignancy noted. 2. Unless there is more urgent need, screening mammography is recommended, as per [employer] guidelines. BI-RADS Category 1 - Negative Breast Density - Category B - Scattered areas of fibroglandular density Breast density category C or D implies that the patient has dense breast tissue. Dense breast tissue is very common and is not abnormal but dense breast tissue can make it harder to find cancer on a ma mmogram. Also, dense breast tissue may increase their breast cancer risk. This information about the result of the mammogram report was provided to the patient to raise their awareness. Use this report when you speak with the patient about their risks for breast cancer, which includes their family hist ory. At that time, you may recommend for more screening tests (Ultrasound or MRI) as they might be us eful based on their risk. A negative radiographic report should not delay biopsy if a dominant or clinically suspicious mass is present. Up to ten percent of cancers are not identified on mammography. A negative report may reinforce clinical impression. Adenosis and dense breasts may obscure an underlying neoplasm. False positive reports average 6 to 10%. Patient will receive a letter notifying them of these results.
== END 2025-01-28 02:19 ==
LOC: DI 01:59
PROVIDERS: PCP Physician Assistant Medical; Visit Provider Physician Assistant Medical
DX: Z12.31 Encounter for screening mammogram for malignant neoplasm of breast (principal); R92.323 Mammographic fibroglandular density, bilateral breasts
CPT/HCPCS: 77063; 77067

== ENCOUNTER → 2025-05-15 14:08 | Outpatient (BNVA) | payer MEDICARE, SELFPAY | PROVIDERS: PCP Physician Assistant Medical; Referring Provider Physician Assistant Medical; Visit Provider Physician Assistant Surgical | DX: J44.9 Chronic obstructive pulmonary disease, unspecified (principal); J96.11 Chronic respiratory failure with hypoxia; Z72.0 Tobacco use | CPT/HCPCS: 99214; G0296 ==